=== PATIENT | female | born 1995 | race Caucasian/White ===

== ENCOUNTER → 2020-05-14 | Outpatient (CLI) | payer MEDICAID | LOC: CARD 14:00 | PROVIDERS: ATTEND Internal Medicine Cardiovascular Disease | DX: I50.9 Heart failure, unspecified (principal) | CPT/HCPCS: 93306 ==

== ENCOUNTER 2020-05-22 15:50 | Outpatient (CLI) | payer MEDICAID ==
[~2020-05-22] VITALS: Ht 160 cm; Wt 102.0 kg
--- NOTE | 2020-05-22 15:55 | NUR ---
JAMIR MENDOZA presented to unit via from ED, accompanied by s/o, with c/o POSS LOST MUCUS PLUG/CONTRACTIONS. JAMIR MENDOZA weighed, gowned, voided, and to bed. EFHM and TOCO applied, VS taken. JAMIR MENDOZA oriented to bed controls, call light, TV, heat, and A/C controls.
[2020-05-22 16:00] VITALS: BP 113/73
--- NOTE | 2020-05-22 16:20 | NUR ---
sve by this RN. see flowsheet intervention. resting in bed. reported nausea with lying on back for SVE. repositioned to right side semifowler. fan on emesis bag given. no emesis noted. reports nausea resolving. readjusting FHR monitor r/t poor tracing with active Fetus /FM. patient reports FM. hick ups noted. no contractions palpated by this RN while performing head to toe assessment.
--- NOTE | 2020-05-22 16:55 | NUR ---
no contractions noted on monitor tracing. reactive tracing obtained. fhr baseline 145. occasional variable noted. moderate variability. occasional uterine irritability noted on tracing lasting 20-30secs.
--- NOTE | 2020-05-22 16:57 | NUR ---
EFM removed. d/c orders received to send home. acitve labor ruled out. labor precautions reviewed .
--- NOTE | 2020-05-22 17:17 | NUR ---
out of WS with d/c instructions in hand, to private vehicle to home self care.
--- NOTE | 2020-05-24 08:09 | Physician Query-Final Dx ---
Clinic Account Progress/Dx Physician Query: Please give diagnosis Please include # weeks gestation Date of Service May 22, 2020 at 15:50 VALENTINE JEAN May 24, 2020 08:09
[2020-05-24] MEDS ORDERED: IBUP-844 PO (12:42)
[2020-05-24] MEDS ORDERED: AMOX1TAB12 PO (12:42)
[2020-05-24] MEDS ORDERED: DCS100C PO (12:42)
[2020-05-24] MEDS ORDERED: ENOX40DI8 SQ (12:42)
[2020-05-24] MEDS ORDERED: BENZ78AE5 TP (12:42)
== END 2020-05-22 17:17 | disposition home or self-care (01) ==
LOC: LDRP 15:50 → WSo 15:50
PROVIDERS: ATTEND Obstetrics & Gynecology
DX: O62.9 Abnormality of forces of labor, unspecified (principal); Z3A.00 Weeks of gestation of pregnancy not specified

== ENCOUNTER 2020-05-24 06:50 | Inpatient (IN) | payer MEDICAID ==
[~2020-05-24] VITALS: Ht 160 cm; Wt 104.0 kg
[2020-05-24] VITALS (34 sets, daily range): BP systolic 85–160; BP diastolic 51–83
--- NOTE | 2020-05-24 07:00 | NUR ---
JAMIR MENDOZA presented to unit via ambulation from ED, accompanied by s/o, for scheduled IOL. Pt. weighed, gowned, voided, and to bed. EFHM and TOCO applied, VS taken. Pt. oriented to bed controls, call light, TV, heat, and A/C controls.
[2020-05-24] MEDS ORDERED: OXYTOCIN PRE-MIX DRIP 500 ML IV SCH ×2 (07:30→12:45)
[2020-05-24] MEDS ORDERED: D5 LR IV SOLUTION 1,000 ML IV SCH (07:30)
--- NOTE | 2020-05-24 07:39 | History & Physical-OB ---
OB - Chief Complaint & HPI Date/Time Date of Admission: Date of Admission: May 24, 2020 at 06:50 Date seen by a Provider: May 24, 2020 Time Seen by a Provider: 08:15 Chief Complaint/History OB-Reason for Admission/Chief: Induction of Labor Hx : 6 Hx Para: 4 Expected Date of Delivery: May 31, 2020 Gestational Age in Weeks: 39 Gestational Age in Days: 0 Indication for induction: medical complication Admission Nurse Assessment Rev: Yes History of Labs GBS neg Allergies and Home Medications Allergies Coded Allergies: No Known Drug Allergies (Unverified , 05/24/20) Home Medications No Active Prescriptions or Reported Meds Patient Home Medication List Home Medication List Reviewed: Yes OB - History Hx of Present Care: Yes Ultrasounds: Normal mid trimester US Obstetrical Complications: Gestational Diabetes (diet controlled) Medical Complications: Other (History of peripartum cardiomyopathy, seen by Cardiology this , EF WNL. Also history of PE on anticoagulation) Patient Past Medical History Hx of PE Hx of peripartum cardiomyopathy Social History/Family History 2nd Hand Smoke Exposure: Yes Immunizations Date of Influenza Vaccine: Mar 30, 2020 OB - Admission Exam Physical Exam HEENT: NCAT Heart: Rhythm Normal Lungs: Clear Abdomen: Gravid Extremities: Normal Reflexes: Normal Cervical Dilatation: 3cm Effacement: 75% Station: -1 Membranes: Intact Heart Rate: 130's Accelerations: Accelerations Present Decelerations: No Decelerations Short Term Variability: Present Correction Variability: Average (6-25) Contractions on Admission: 6-10 Minutes Apart Intensity: Mild Bhakta Scoring Tool (Modified) Dilation (cm): 3-4cm (2) Effacement (%): 51-79% (2) Descent/Station: -1,0 (2) Cervix Consistency: Soft (2) Cervix Position: Anterior (2) Add 1 point for: Each previous vaginal delivery (1) Bhakta Score: 13 Labs Laboratory Tests Test 05/24/20 07:00 Range/Units OB - Assessment/Plan/Diagnosis Assessment Assessment: section Admission Dx 25 yo @ 39 Elective 39 week induction with medical co-morbidities Hx of PE Hx of Peripartum cardiomyopathy GBS neg Admission Status: Inpatient Order (span 2 midnights) Reason for Inpatient Admission: Induction of labor at term Plan Plan: Induction Induction Method: per Pitocin Protocol VALDEMAR BARTON DO May 24, 2020 07:39
[2020-05-24 07:47] LABS: AMPHETAMINE SCREEN, URINE NEGATIVE (NEGATIVE); BARBITURATE SCREEN URINE NEGATIVE (NEGATIVE); BENZODIAZEPINES SCREEN URINE NEGATIVE (NEGATIVE); CANNABINOID SCREEN, URINE NEGATIVE (NEGATIVE); COCAINE SCREEN URINE NEGATIVE (NEGATIVE); METHADONE STAT NEGATIVE (NEGATIVE); METHAMPHETAMINE SCREEN URINE S NEGATIVE (NEGATIVE); OPIATE SCREEN URINE NEGATIVE (NEGATIVE); OXYCODONE STAT NEGATIVE (NEGATIVE); PROPOXYPHENE STAT NEGATIVE (NEGATIVE); TRICYCLIC ANTIDEPRESSANTS SCRE NEGATIVE (NEGATIVE)
--- NOTE | 2020-05-24 07:53 | NUR ---
#20G IV to Rt.hand x1 attempt per this RN. site patent,secured with opsite. D5LR @ 125cc/hr infusing.
--- NOTE | 2020-05-24 08:02 | NUR ---
lab here to draw admission labs.
[2020-05-24 08:16] LABS: BASOPHILS % (AUTO) 0 % (0-10); EOSINOPHILS # (AUTO) 0.4 10^3/uL (0.0-0.3); EOSINOPHILS % (AUTO) 4 % (0-10); HEMATOCRIT 30 % (35-52); HEMOGLOBIN 9.5 g/dL (11.5-16.0); LYMPHOCYTES # (AUTO) 2.3 10^3/uL (1.0-4.0); LYMPHOCYTES % (AUTO) 24 % (12-44); MEAN CORPUSCULAR HEMOGLOBIN 24 pg (25-34); MEAN CORPUSCULAR HGB CONC 31 g/dL (32-36); MEAN CORPUSCULAR VOLUME 77 fL (80-99); MONOCYTES # (AUTO) 0.6 10^3/uL (0.0-1.0); MONOCYTES % (AUTO) 6 % (0-12); NEUTROPHILS # (AUTO) 6.2 10^3/uL (1.8-7.8); NEUTROPHILS % (AUTO) 65 % (42-75); PLATELET COUNT 285 10^3/uL (130-400); WHITE BLOOD COUNT 9.7 10^3/uL (4.3-11.0)
--- NOTE | 2020-05-24 09:12 | NUR ---
anesthesia notified of pt's request for epidural
[2020-05-24] MEDS ORDERED: fentaNYL 2 mcg/ml BUPIVA 0.125 100 ML ONE (09:16)
[2020-05-24] MEDS ORDERED: BUPIVACAINE 0.25% 30 ML (SENSORCAINE) VIAL ONE (09:17)
[2020-05-24] MEDS ORDERED: fentaNYL INJECTION 100 MCG/2 ML AMP ONE (09:17)
--- NOTE | 2020-05-24 09:23 | NUR ---
DAQUAN Santacruz here for epidural placement. Procedure explained, consent reviewed and signed by anesthesia. Questions answered to patient's satisfaction. Time out taken to verify correct patient/procedure. 0925- Patient up to side of bed, assisted into sitting position. Betadine prep done x3 and sterile drape applied. 0930- Local done, see anesthesia record. 0933- Test dose given, see anesthesia record for drug and dosage. Epidural catheter secured in place. Epidural placement complete. 0938- Assisted back into bed, monitors adjusted. Epidural dosed, see anesthesia record. Epidural of Sufenta/Fentanyl @12cc/hr stated per pump. Patient tolerated procedure well.
[2020-05-24] MEDS ORDERED: EPIDURAL (fentaNYL 2 MCG/ML BUPIVA 0.125%)100 ML BAG EPI PRN (10:15)
[2020-05-24] MEDS ORDERED: METOCLOPRAMIDE INJ 10 MG/2 ML (REGLAN) IV PRN (10:15)
[2020-05-24] MEDS ORDERED: ONDANSETRON 4 MG/2 ML (SDV) Z0FRAN IV PRN (10:15)
[2020-05-24] MEDS ORDERED: LACTATED RINGERS 1,000 ML IV SCH (10:15)
[2020-05-24] MEDS ORDERED: NALOXONE 0.4 MG/ML 1 ML (NARCAN) VIAL IV PRN ×2 (10:15)
[2020-05-24] MEDS ORDERED: diphenhydrAMINE 50 MG/ML INJ (BENADRYL) IV PRN (10:15)
--- NOTE | 2020-05-24 10:16 | NUR ---
COVID specimen obtained, labeled and sent to lab.
--- NOTE | 2020-05-24 12:39 | OB Labor & Delivery Record ---
L&D History Date of Service Date of Service: May 24, 2020 History Expected Date of Delivery: May 31, 2020 Gestational Age in Weeks: 39 Hx : 6 Hx Para: 4 Complications Events: Gestational Diabetes (late transfer) Operative Indications (Cesarea: N/A-Vaginal Delivery Intrapartal Events: None L&D Stage1 Stage One Onset of Labor - Date: May 24, 2020 Monitors and Tracing Monitor Mode: External Heart Rate: 125 Monitor Decelerations: Variable Top Closer Variability: Average (6-10) Short Term Variability: Present Presentation: Vertex Vital Signs VS - Last 72 Hours, by Label 05/24/20 05/24/20 05/24/20 05/24/20 07:15 07:15 08:00 08:05 Temp 37.2 37.2 Pulse 125 125 91 Resp 18 20 18 B/P (MAP) 109/68 (82) 119/83 (95) Pulse Ox 97 97 O2 Delivery Room Air Room Air Room Air Room Air 05/24/20 05/24/20 05/24/20 05/24/20 08:15 08:30 08:45 09:00 Pulse 97 93 Resp 18 18 B/P (MAP) 114/77 (89) 160/69 (99) O2 Delivery Room Air Room Air Room Air Room Air 05/24/20 05/24/20 05/24/20 05/24/20 09:15 09:25 09:30 09:35 Pulse 99 96 99 94 Resp 18 18 18 18 B/P (MAP) 111/73 (86) 114/75 (88) 114/69 (84) 125/79 (94) Pulse Ox 99 99 99 O2 Delivery Room Air Room Air Room Air Room Air 05/24/20 05/24/20 05/24/20 05/24/20 09:40 09:45 09:50 09:55 Pulse 108 108 93 99 Resp 18 18 18 18 B/P (MAP) 100/55 (70) 93/51 (65) 93/58 (70) 117/59 (78) Pulse Ox 98 99 99 99 O2 Delivery Room Air Room Air Room Air Room Air 05/24/20 05/24/20 05/24/20 05/24/20 10:00 10:15 10:30 10:45 Pulse 101 102 96 86 Resp 18 18 18 18 B/P (MAP) 101/58 (72) 91/53 (66) 99/61 (74) 99/61 (74) Pulse Ox 97 100 99 98 O2 Delivery Room Air Room Air Room Air Room Air 05/24/20 11:00 Temp 35.8 Pulse 84 Resp 18 B/P (MAP) 101/62 (75) Pulse Ox 97 O2 Delivery Room Air Rupture of Membranes Spontaneous Ruture of Membrane: No Amniotic Membrane Rupture Time: 0845 Amniotic Membrane Fluid Desc.: Clear Vaginal Bleeding Description: Normal Show Induction/Anesthesia Epidural Cath Placement - Time: 932 Progress/Notes Patient admitted for IOL. AROM and Pitocin augmentation used 4 mu dosing of placenta reached. She progressed with an epidural to complete and +1 station and began to feel pressure to push. L&D Stage2 Stage Two Stage II Date: May 24, 2020 Monitors and Tracing Monitor Mode: External Heart Rate: 125 Monitor Accelerations: Uniform Monitor Decelerations: Variable Short Term Variability: Present Position: Right Occiput Anterior Presentation: Vertex Cord Descript/Complications Cord Vessel Description: 3 Vessels Complications nuchal x 1 reduced Delivery Type Delivery Method: Spontaneous Vaginal Anterior Shoulder: Left Episiotomy/Perineal Laceration Laceraction(s)/Extensions: No Condition of Delivery 1 minute Comment: 4 5 minute Comment: 7 Notes Live male infant weight 9lbs 7 oz Condition of Infant Condition of : Living Resuscitation Resuscitation: Oxygen Blowby L&D Stage3 Stage Three Stage III Date: May 24, 2020 Pictocin Pitocin Administration mu/min: 4 Pitocin ml/hr: 4 Pitocin Administration Comment: pitocin increased wide open after delivery of placenta Placenta Delivery Placenta Delivery: Spontaneous Delivery Summary Summary Estimated blood loss (mL): 300 Attending at delivery: Valdemar Barton DO Condition of Delivery Examined: Cervix Examined, Uterus Explored Post Hemorrhage: No Condition of Mother stable Condition of Infant (s) stable VALDEMAR BARTON DO May 24, 2020 12:39
--- NOTE | 2020-05-24 12:40 | Discharge Inst-Women's Service ---
Discharge Inst-Women's Serv Depart Medication/Instructions New, Converted or Re-Newed RX: RX on Chart Final Diagnosis PPD 1 NVD Problems Reviewed?: Yes Consults/Follow Up Additional Follow Up: Yes Orders/Referrals Dr. Barton in 6 weeks Activity Activity: Activity as Tolerated Driving Instructions: No Driving for 1 Week NO SMOKING: NO SMOKING Nothing Inside Vagina: No Douching, No [place], No Tampons Diet Discharge Diet: No Restrictions Symptoms to Report to : Bleeding Excessive, Pain Increased, Fever Over 101 Degrees F, Vaginal Bleeding Increase, Questions/Concerns For Any Problems or Questions: Contact Your Physician VALDEMAR BARTON DO May 24, 2020 12:40
[2020-05-24] MEDS ORDERED: IBUP-844 PO (12:42)
[2020-05-24] MEDS ORDERED: ENOX40DI8 SQ (12:42)
[2020-05-24] MEDS ORDERED: DCS100C PO (12:42)
[2020-05-24] MEDS ORDERED: BENZ78AE5 TP (12:42)
[2020-05-24] MEDS ORDERED: AMOX1TAB12 PO (12:42)
[2020-05-24] MEDS ORDERED: MEASLES,MUMPS,RUBELLA 1 EA INJ SQ ONE (12:45)
[2020-05-24] MEDS ORDERED: BENZOCAINE/MENTHOL (DERMOPLAST) 60 ML CAN TP PRN (12:45)
[2020-05-24] MEDS ORDERED: WITCH HAZEL(TUCKS) 40 EA JAR TOP PRN (12:45)
[2020-05-24] MEDS ORDERED: TETANUS,DIPTH,PERTUSS P/F (BOOSTRIX) 0.5 ML VIAL IM ONE (12:45)
[2020-05-24] MEDS: IBUPROFEN 600 MG (MOTRIN) TAB PO SCH ×2 (12:54→19:15)
--- NOTE | 2020-05-24 13:28 | NUR ---
pitocin infusion complete. IV converted to HL.
[2020-05-24] MEDS ORDERED: CATHETER FLUSH 10 ML SYR IV SCH ×2 (14:00)
--- NOTE | 2020-05-24 15:33 | NUR ---
FFu/o. pt cont sleeping with unlabored respirations.
--- NOTE | 2020-05-24 16:50 | NUR ---
pt transferred to room 311 via w/c with this RN and s/o @ side. familiarized with room surroundings. pt up to void. requesting to shower. IV covered.
[2020-05-24] MEDS ORDERED: ACETAMINOPHEN 500 MG TAB (TYLENOL) ONE (17:28)
[2020-05-24] MEDS: ACETAMINOPHEN 500 MG TAB (TYLENOL) PO PRN (17:36)
[2020-05-24] MEDS: DOCUSATE SODIUM 100 MG (COLACE) CAP PO SCH (19:55)
--- NOTE | 2020-05-24 19:55 | NUR ---
VSS, sched Colace given, will start sched Augmentin. Pt. crying, c/o cramping, h/a & states her hips ache. States she took a nap & woke up & felt sick, stating she hopes she is not getting sick w/something. Reassurance given, cool rag offered & to head, K-Pad offered & will get. Pt. appreciative, will cont. to monitor.
[2020-05-24] MEDS: AUGMENTIN 875 MG TAB (AMOXICILLIN/CLAVULANATE) PO SCH (20:05)
--- NOTE | 2020-05-24 20:20 | NUR ---
Called Dr. Freire, update given on pt's pain, & verified Lovenox schedule, no new orders rc'd.
[2020-05-25 00:30] VITALS: BP 137/72
[2020-05-25 00:47] VITALS: BP 91/51
[2020-05-25] MEDS: IBUPROFEN 600 MG (MOTRIN) TAB PO SCH ×3 (00:47→12:08)
[2020-05-25] MEDS: ACETAMINOPHEN 500 MG TAB (TYLENOL) PO PRN ×2 (00:47→08:53)
[2020-05-25 03:45] VITALS: BP 92/50
[2020-05-25 05:12] LABS: BASOPHILS % (AUTO) 0 % (0-10); EOSINOPHILS # (AUTO) 0.3 10^3/uL (0.0-0.3); EOSINOPHILS % (AUTO) 3 % (0-10); HEMATOCRIT 29 % (35-52); HEMOGLOBIN 9.2 g/dL (11.5-16.0); LYMPHOCYTES # (AUTO) 2.2 10^3/uL (1.0-4.0); LYMPHOCYTES % (AUTO) 22 % (12-44); MEAN CORPUSCULAR HEMOGLOBIN 24 pg (25-34); MEAN CORPUSCULAR HGB CONC 31 g/dL (32-36); MEAN CORPUSCULAR VOLUME 77 fL (80-99); MEAN PLATELET VOLUME 10.8 fL (9.0-12.2); MONOCYTES # (AUTO) 0.8 10^3/uL (0.0-1.0); MONOCYTES % (AUTO) 8 % (0-12); NEUTROPHILS # (AUTO) 6.7 10^3/uL (1.8-7.8); NEUTROPHILS % (AUTO) 66 % (42-75); PLATELET COUNT 199 10^3/uL (130-400)
[2020-05-25] MEDS ORDERED: PRENATAL VITAMIN 1 EA TAB PO SCH (07:00)
[2020-05-25] MEDS ORDERED: ENOXAPARIN 40 MG/0.4 ML (LOVENOX) SYR SQ SCH (07:00)
[2020-05-25] MEDS ORDERED: FERROUS SULF 325 MG (IRON) TAB PO SCH (08:00)
--- NOTE | 2020-05-25 08:25 | Postpartum Progress Note ---
Note Note Day # 1 Subjective: Patient is without complaints. Ambulating, voiding. Tolerating a regular diet without nausea or vomiting. Normal lochia. Pain is well controlled with oral pain medications. Objective: Physical Exam: General - Alert and oriented, no apparent distress Abdomen - Soft, appropriately tender to palpation, non-distended, fundus firm at umbilicus Extremities - no edema, negative Mackenzie's bilaterally Assessment: PPD 1 NVD Acute blood loss anemia Plan: Routine care. Encourage breast feeding. Encourage ambulation. Ferrous sulfate supplementation. Plan for discharge today Vitals - Labs Vital Signs - I&O Vital Signs Date Time Temp Pulse Resp B/P (MAP) Pulse Ox O2 Delivery O2 Flow Rate FiO2 05/25/20 03:45 36.9 79 18 92/50 (64) 97 Room Air 05/25/20 00:47 36.5 84 18 91/51 (64) 98 Room Air 05/24/20 19:55 36.4 84 18 120/59 (79) 99 Room Air 05/24/20 15:30 86 18 86/51 (63) Room Air 05/24/20 15:15 85 18 86/52 (63) Room Air 05/24/20 15:00 88 18 85/51 (62) Room Air 05/24/20 14:45 111 18 97/53 (68) Room Air 05/24/20 14:30 105 18 96/51 (66) Room Air 05/24/20 14:15 108 18 99/53 (68) Room Air 05/24/20 14:00 113 18 117/59 (78) Room Air 05/24/20 13:45 92 18 118/62 (80) Room Air 05/24/20 13:15 85 18 104/53 (70) Room Air 05/24/20 13:00 100 18 114/69 (84) Room Air 05/24/20 12:48 95 18 112/60 (77) Room Air 05/24/20 12:34 36.3 88 18 107/61 (76) Room Air 05/24/20 12:15 36.9 Room Air 05/24/20 12:00 91 18 128/77 (94) 99 Room Air 05/24/20 11:45 86 18 107/65 (79) 100 Room Air 05/24/20 11:30 103 18 106/65 (79) 93 Room Air 05/24/20 11:15 91 18 105/64 (78) 99 Room Air 05/24/20 11:00 35.8 84 18 101/62 (75) 97 Room Air 05/24/20 10:45 86 18 99/61 (74) 98 Room Air 05/24/20 10:30 96 18 99/61 (74) 99 Room Air 05/24/20 10:15 102 18 91/53 (66) 100 Room Air 05/24/20 10:00 101 18 101/58 (72) 97 Room Air 05/24/20 09:55 99 18 117/59 (78) 99 Room Air 05/24/20 09:50 93 18 93/58 (70) 99 Room Air 05/24/20 09:45 108 18 93/51 (65) 99 Room Air 05/24/20 09:40 108 18 100/55 (70) 98 Room Air 05/24/20 09:35 94 18 125/79 (94) 99 Room Air 05/24/20 09:30 99 18 114/69 (84) 99 Room Air 05/24/20 09:25 96 18 114/75 (88) 99 Room Air 05/24/20 09:15 99 18 111/73 (86) Room Air 05/24/20 09:00 93 18 160/69 (99) Room Air 05/24/20 08:45 Room Air 05/24/20 08:30 Room Air I & O 05/25/20 07:00 Intake Total 2000 ml Balance 2000 ml Labs Laboratory Tests 05/24/20 10:16: Coronavirus (COVID-19)(PCR) Negative 05/25/20 05:05: White Blood Count 10.0, Red Blood Count 3.83, Hemoglobin 9.2L, Hematocrit 29L, Mean Corpuscular Volume 77L, Mean Corpuscular Hemoglobin 24L, Mean Corpuscular Hemoglobin Concent 31L, Red Cell Distribution Width 16.1H, Platelet Count 199, Mean Platelet Volume 10.8, Immature Granulocyte % (Auto) 1, Neutrophils (%) (Auto) 66, Lymphocytes (%) (Auto) 22, Monocytes (%) (Auto) 8, Eosinophils (%) (Auto) 3, Basophils (%) (Auto) 0, Neutrophils # (Auto) 6.7, Lymphocytes # (Auto) 2.2, Monocytes # (Auto) 0.8, Eosinophils # (Auto) 0.3, Basophils # (Auto) 0.0, Immature Granulocyte # (Auto) 0.1 VALDEMAR BARTON DO May 25, 2020 08:25
[2020-05-25] MEDS: DOCUSATE SODIUM 100 MG (COLACE) CAP PO SCH (08:52)
[2020-05-25] MEDS: AUGMENTIN 875 MG TAB (AMOXICILLIN/CLAVULANATE) PO SCH (08:52)
[2020-05-25 08:55] VITALS: BP 105/59
--- NOTE | 2020-05-25 10:38 | Anesthesia-Regional Post-Op ---
Regional Patient Condition Mental Status: Alert, Oriented x3 Circulation: Same as Pre-Op Headache: Absent Sensation: Full Recovery Motor Block: Absent Post Op Complications Complications None Follow Up Care/Instructions Patient Instructions None needed. Anesthesia/Patient Condition Patient is doing well, no complaints, stable vital signs, no apparent adverse anesthesia problems. CANDY BOBBY DO May 25, 2020 10:38
--- NOTE | 2020-05-25 11:18 | NUR ---
CM/SS: Visited with pt as per Social Service Consult related to maternal drug use. Plan: Baby to live with his biological father at time of discharge - as pt is working to establish housing and in the process of getting her other children back from the [facility]. Summary: Pt is open to share information related to her past issues related to her children and not having custody of them and her transition to getting some housing and in the process of getting children back from the state of [place]. Pt is aware that this worker will make a DCF report - she explains that she had an affair and got and the biological father of the pt wants to raise the child based on her not having custody of her other children and the current open case in the state of [place]. Pt wants what is best for the baby. She does indicate she has a new boyfriend and they are trying to get a house and get established here in [place]. She needs to check on WIC and other services for the baby. She is given information on services for pt, WIC, [facility] - parenting classes (she reports involvement with them currently taking classes) and is encouraged to pass along the information to biological father. Pt verbalizes understanding. Pt reports that dad has items and bed for baby. She is encouraged to let him know as well that DCF will be notified as to the case in [place] and may be contacted and is encouraged to given them what ever information they are needing. He is currently an licensed journeyman electrician at this time. Pt reports that he can care for the pt. Pt is thanked for all of the information, and is wished well.
--- NOTE | 2020-05-25 11:23 | NUR ---
CM/SS: [place] PROTECTION REPORT COMPLETED # [id number] - SUBMITTED 05/25/20 10:51AM. BASED ON PT HAVING OPEN DCF CASE IN THE STATE OF [place] , PAST DRUG ISSUES, INADEQUATE HOUSING AND PLANNING TO ALLOW THE BIOLOGICAL FATHER TO HAVE AND CARE FOR CHILD.
[2020-05-25 12:10] VITALS: BP 127/61
--- NOTE | 2020-05-25 13:50 | NUR ---
Discharge instructions explained to pt with copy provided to pt along with prescriptions. Pt notified of follow up appointment. Pt verbalizes understanding of instructions and signs to verify. Pt denies questions or concerns at this time.
--- NOTE | 2020-05-25 14:10 | NUR ---
Pt ambulates off unit to private vehicle accompanied by S.O., , and OB staff with all personal belongings. No s/s of distress noted.
== END 2020-05-25 14:10 | disposition home or self-care (01) | DRG 806 ==
LOC: LDRP 06:50 → WS 09:32 → LDRP 09:32
PROVIDERS: ADMIT Obstetrics & Gynecology; ATTEND Obstetrics & Gynecology
PROC: 10E0XZZ Delivery of Products of Conception, External Approach (ICD-10-PCS; principal; 2020-05-24)
PROC: 10907ZC Drainage of Amniotic Fluid, Therapeutic from Products of Conception, Via Natural or Artificial Opening (ICD-10-PCS; 2020-05-24)
DX: O24.429 Gestational diabetes mellitus in childbirth, unspecified control (principal); O99.43 Diseases of the circulatory system complicating the puerperium; Z37.0 Single live birth; I42.9 Cardiomyopathy, unspecified; D62 Acute posthemorrhagic anemia; Z3A.39 39 weeks gestation of pregnancy; O90.81 Anemia of the puerperium; Z20.822 Contact with and (suspected) exposure to COVID-19
CPT/HCPCS: 36415; 80306; 85025; 86850; 86900; 86901; 87635

== ENCOUNTER 2020-06-09 21:44 | Emergency (ER) | payer MEDICAID ==
[~2020-06-09] VITALS: Ht 165 cm; Wt 98.0 kg
[~2020-06-09 21:44] MED LIST: AMOX1TAB12 PO; BENZ78AE5 TP; DCS100C PO; ENOX40DI8 SQ; IBUP-844 PO
--- NOTE | 2020-06-09 22:41 | ED GI ---
General Chief Complaint: Rect Problems Stated Complaint: HISTORY/POSS HEMORRHOID Source of Information: Patient Exam Limitations: No Limitations (ALCIDES RADFORD MD) Source of Information: Patient Exam Limitations: No Limitations (YAJAIRA SHEIKH) History of Present Illness Date Seen by Provider: Jun 09, 2020 Time Seen by Provider: 22:00 Initial Comments Carlos is a 25 y/o female that presents to the ER with anal pain that has been ongoing for a month and a half. She describes the pain as 8/10, pain increases with bowel movements, passing gas and sitting. She describe the pain as sharp and painful when she is having a BM and the pain is persistent up to an hour after. She has tried OTC hemorrhoid creme, Tylenol and Ibuprofen, which have helped minimally. She denies associated blood in stool or abdominal pain. She is not using any fiber supplements, topical analgesics or sitz to help with pain. She has Pertinent PMH of hemorrhoid removal back in [id number] in [place], [place], Pulmonary Embolism and recent induction for delivery on May 24. She recently moved to the area and has no PCP at this time. Denies the following: F/C, vomiting, Chest pain, SOB, Abdominal pain, and symptoms. She has had ongoing nausea since giving and is currently receiving Zofran. Timing/Duration: 1/2 Hour Severity/Quality: Mild Location: Other (rectal) Radiation: No Radiation Activities at Onset: Other (passing gas, bowel movements, sitting) Associated Symptoms: Denies Symptoms (YAJAIRA SHEIKH) Allergies and Home Medications Allergies Coded Allergies: No Known Drug Allergies (Unverified , 05/24/20) Home Medications Amoxicillin/Potassium Clav 1 Each Tablet, 875 MG PO BID WITH MEALS Prescribed by: VALDEMAR BARTON on 05/24/20 1242 Benzocaine/Menthol 78 Gm Aerosol, 56 ML TP UD PRN for PAIN- SEE INSTRUCTIONS Prescribed by: VALDEMAR BARTON on 05/24/20 1242 Docusate Sodium 100 Mg Capsule, 100 MG PO BID PRN for CONSTIPATION-1ST LINE Prescribed by: VALDEMAR BARTON on 05/24/20 1242 Enoxaparin Sodium 40 Mg/0.4 Ml Syringe, 0 MG SQ Q24H Prescribed by: VALDEMAR BARTON on 05/24/20 1242 Ibuprofen 600 Mg Tablet, 600 MG PO Q6HR Prescribed by: VALDEMAR BARTON on 05/24/20 1242 Patient Home Medication List Home Medication List Reviewed: Yes (ALCIDES RADFORD MD) Review of Systems Review of Systems Constitutional: no symptoms reported EENTM: No Symptoms Reported Cardiovascular: No Symptoms Reported, Chest Pain Gastrointestinal: Denies Blood Streaked Stools; Nausea; Denies Rectal Bleeding; Other (rectal pain) Genitourinary: No Symptoms Reported Musculoskeletal: no symptoms reported Skin: no symptoms reported Psychiatric/Neurological: No Symptoms Reported Hematologic/Lymphatic: No Symptoms Reported (KORIYAJAIRA [employer] Company[employer]) Past Eljtilr-Bcrhmu-Spxsog Hx Patient Social History Drug of Choice: methephatamines 2nd Hand Smoke Exposure: Yes (ALCIDES RADFORD MD) Alcohol Use: Occasionally Uses Smoking Status: Never a Smoker (KORIYAJAIRA Mfuse ABHISHEK) Immunizations Up To Date Date of Influenza Vaccine: Jan 29, 2020 (ALCIDES RAFDORD MD) Past Medical History Respiratory: No Currently Using CPAP: No Currently Using BIPAP: No Cardiac: No Neurological: No : No Reproductive Disorders: No Sexually Transmitted Disease: No HIV/AIDS: No Genitourinary: No Gastrointestinal: Yes Hemorrhoids Musculoskeletal: No Endocrine: No Are Your Blood Sugars Over 250: No HEENT: No Loss of Vision: Denies Hearing Impairment: Denies Cancer: No hx PE Psychosocial: No Integumentary: No Blood Disorders: No Adverse Reaction/Blood Tranf: No (YAJAIRA SHEIKH Mfuse ABHISHEK) Family Medical History denies FH of colon cancer (KORI,YAJAIRA [employer]) Physical Exam Vital Signs Capillary Refill : (ALCIDES RADFORD MD) Height/Weight/BMI Height: '" Weight: lbs. oz. kg; 40.62 BMI Method: (ALCIDES RADFORD MD) General Appearance: no apparent distress HEENT: PERRL/EOMI Neck: non-tender, full range of motion Respiratory: chest non-tender, lungs clear, no respiratory distress, no accessory muscle use Cardiovascular: regular rate, rhythm, no edema Peripheral Pulses: 2+ Dorsalis Pedis (R), 2+ Left Dors-Pedis (L), 2+ Radial Pulses (R), 2+ Radial Pulses (L) Gastrointestinal: normal bowel sounds, non tender, soft Rectal: hemorrhoids (potential internal hemorrhoids ), tenderness (Left internal side wall ) Extremities: no pedal edema, no calf tenderness Neurologic/Psychiatric: alert, normal mood/affect, oriented x 3 Skin: normal color, warm/dry Lymphatic: no adenopathy Exam Comments During Rectal Exam Tech Karina was present. (YAJAIRA SHIEKH) Progress/Results/Core Measures Progress Progress Note : Progress Note Patient has not had any rectal bleeding despite taking Lovenox. On rectal exam there was some bumpy texture to the internal mucosa which may represent internal hemorrhoids. No significant masses. Anal exam revealed no notable external hemorrhoids or fissures. There was no bleeding noted. She had minimal tendern ess on exam. Patient may have intermittent anal fissure or some small internal hemorrhoids that are causing her pain. See discharge instructions for discussion. (ALCIDES RADFORD MD) Departure Impression Primary Impression: Rectal pain Disposition: 01 HOME, SELF-CARE Condition: Stable Departure-Patient Inst. Decision time for Depature: 22:38 (ALCIDES RADFORD MD) Referrals: VALDEMAR BARTON DO (PCP/Family) Primary Care Physician Patient Instructions: Anal Fissure, Hemorrhoids Add. Discharge Instructions: The cause of your pain is uncertain but could be related to internal hemorrhoids or an anal fissure (crack in the anal skin). One of the primary treatments is keeping your stools very soft while the rectum and anus heals. You may use Colace stool softener twice daily to accomplish stool softening. If you need more aggressive stool softening you may use MiraLAX (polyethylene glycol) a few times a day. Follow package instructions. You may continue using Tylenol and/or ibuprofen for pain. Eat a diet high in fiber with plenty of fruits, vegetables, and whole grains. Avoid excessive foods that may cause constipation such as meats, cheeses, fast foods, processed foods, etc. You may continue using [id number] hemorrhoid treatments. It may also be beneficial to lubricate the anal tissue with Vaseline or petroleum jelly prior to bowel movements. You may wash the anal area with a squirt bottle or shower and blot dry rather than wiping. Call with questions or concerns. Follow-up with your primary care provider or surgeon if not resolved in 1 to 2 weeks. Return to the ER if worsening symptoms. All discharge instructions reviewed with patient and/or family. Voiced understanding. Medical Student Attestation and Attending Note: I have personally interviewed and examined this patient along with Yajaira Polanco, MS 4. I have reviewed student documentation including history, physical, and assessments. I agree with the documentation except where otherwise noted. Exam: General: Alert, oriented, no acute distress, well developed HEENT: Normocephalic and atraumatic Heart: Regular rate and rhythm without murmur Lungs: Clear to auscultation bilaterally with normal effort Abdomen: Soft, nontender, nondistended, normal bowel sounds Rectal: Subtle lumpy texture to the rectal vault which may represent small internal hemorrhoids. No significant external hemorrhoids noted. No anal fissures. No bleeding. Normal rectal tone. Mild pain with exam. Neuropsych: Alert, oriented, no focal deficits Skin: Warm and dry without rashes (ALCIDES RADFORD MD) Copy Copies To 1: VALDEMAR BARTON JOSHUA T MD Jun 09, 2020 22:41 YAJAIRA SHEIKH [facility] Jun 09, 2020 22:52
[2020-06-09 22:48] VITALS: BP 110/44
== END 2020-06-09 22:48 | disposition home or self-care (01) ==
LOC: EDUNIT# 21:44 → ER 21:46
DX: K62.89 Other specified diseases of anus and rectum (principal); Z77.22 Contact with and (suspected) exposure to environmental tobacco smoke (acute) (chronic); Z79.01 Long term (current) use of anticoagulants
CPT/HCPCS: 99282

== ENCOUNTER 2020-07-06 00:30 | Emergency (ER) | payer MEDICAID ==
[~2020-07-06] VITALS: Ht 160 cm; Wt 98.0 kg
[2020-07-06 01:43] LABS: BASOPHILS # (AUTO) 0.1 10^3/uL (0.0-0.1); BASOPHILS % (AUTO) 1 % (0-10); EOSINOPHILS # (AUTO) 1.6 10^3/uL (0.0-0.3); EOSINOPHILS % (AUTO) 18 % (0-10); HEMATOCRIT 37 % (35-52); HEMOGLOBIN 11.5 g/dL (11.5-16.0); LYMPHOCYTES # (AUTO) 3.7 10^3/uL (1.0-4.0); LYMPHOCYTES % (AUTO) 41 % (12-44); MEAN CORPUSCULAR HEMOGLOBIN 25 pg (25-34); MEAN CORPUSCULAR HGB CONC 31 g/dL (32-36); MEAN CORPUSCULAR VOLUME 79 fL (80-99); MEAN PLATELET VOLUME 9.9 fL (9.0-12.2); MONOCYTES # (AUTO) 0.5 10^3/uL (0.0-1.0); MONOCYTES % (AUTO) 6 % (0-12); NEUTROPHILS # (AUTO) 3.1 10^3/uL (1.8-7.8); NEUTROPHILS % (AUTO) 35 % (42-75); PLATELET COUNT 319 10^3/uL (130-400)
[2020-07-06 01:57] LABS: ALBUMIN 4.2 GM/DL (3.2-4.5); CHLORIDE 104 MMOL/L (98-107); POTASSIUM 4.8 MMOL/L (3.6-5.0); SODIUM 136 MMOL/L (135-145)
[2020-07-06 01:58] LABS: CALCIUM 9.7 MG/DL (8.5-10.1)
[2020-07-06 01:59] LABS: GLUCOSE 94 MG/DL (70-105); TOTAL PROTEIN 8.1 GM/DL (6.4-8.2)
[2020-07-06 02:01] LABS: BILIRUBIN,TOTAL 0.3 MG/DL (0.1-1.0); CARBON DIOXIDE 19 MMOL/L (21-32)
[2020-07-06 02:03] LABS: ALKALINE PHOSPHATASE 69 U/L (40-136); CREATININE SERUM 0.77 MG/DL (0.60-1.30); GFR ESTIMATED > 60
[2020-07-06 02:04] LABS: BUN/CREATININE RATIO 30
[2020-07-06 02:06] LABS: ALANINE AMINOTRANSFERASE 46 U/L (0-55)
--- NOTE | 2020-07-06 02:57 | ED Chest Pain ---
General Chief Complaint: General Problems/Pain Stated Complaint: POSS BLOOD CLOTT, PINCHING ON RT SIDE Nursing Triage Note: PATIENT DESCRIBES "PINCHING" SENSATION IN RIGHT "LUNG" AREA. "I THINK ITS A BLOOD CLOT, LIDYA HAD THEM IN THE PAST AND THIS IS WHAT IT FELT LIKE." Nursing Sepsis Screen: No Definite Risk Source: patient Exam Limitations: no limitations History of Present Illness Date Seen by Provider: Jul 06, 2020 Time Seen by Provider: 01:30 Initial Comments Patient presents ER by private conveyance with chief complaint she is having so me pinching-like pain in her right chest and in her right mid axillary line. She says she had pain similar to this when she had a pulmonary embolism in the past. She is not having any shortness of breath hemoptysis fever cough. She is not a smoker nor does she have asthma or COPD. No history of heart disease. No trauma. Allergies and Home Medications Allergies Coded Allergies: No Known Drug Allergies (Unverified , 05/24/20) Home Medications Amoxicillin/Potassium Clav 1 Each Tablet, 875 MG PO BID WITH MEALS Prescribed by: VALDEMAR BARTON on 05/24/20 1242 Benzocaine/Menthol 78 Gm Aerosol, 56 ML TP UD PRN for PAIN- SEE INSTRUCTIONS Prescribed by: VALDEMAR BARTON on 05/24/20 1242 Docusate Sodium 100 Mg Capsule, 100 MG PO BID PRN for CONSTIPATION-1ST LINE Prescribed by: VALDEMAR BARTON on 05/24/20 1242 Enoxaparin Sodium 40 Mg/0.4 Ml Syringe, 0 MG SQ Q24H Prescribed by: VALDEMAR BARTON on 05/24/20 1242 Ibuprofen 600 Mg Tablet, 600 MG PO Q6HR Prescribed by: VALDEMAR BARTON on 05/24/20 1242 Patient Home Medication List Home Medication List Reviewed: Yes Review of Systems Review of Systems Constitutional: No chills, No diaphoresis EENTM: No Blurred Vision, No Double Vision Respiratory: Denies Cough, Denies Shortness of Air Cardiovascular: See HPI, Chest Pain; Denies Edema Gastrointestinal: Denies Abdomen Distended, Denies Abdominal Pain Genitourinary: Denies Burning, Denies Discharge Musculoskeletal: No back pain, No joint pain All Other Systems Reviewed Negative Unless Noted: Yes Past Lfhsxgk-Zjqgrn-Xdszfx Hx Patient Social History Alcohol Use: Occasionally Uses Drug of Choice: MARIJUANA 2nd Hand Smoke Exposure: Yes Recent Infectious Disease Expo: No Recent Hopitalizations: Yes Immunizations Up To Date Date of Influenza Vaccine: Jan 29, 2020 Seasonal Allergies Seasonal Allergies: No Past Medical History Surgeries: No Respiratory: No Pulmonary Embolism Currently Using CPAP: No Currently Using BIPAP: No Cardiac: No Congenital Heart Disease Neurological: No : 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 denies FH of colon cancer Physical Exam Vital Signs Vital Signs - First Documented 07/06/20 01:40 Temp 35.9 Pulse 73 Resp 18 B/P (MAP) 136/84 (101) Pulse Ox 98 O2 Delivery Room Air Capillary Refill : Less Than 3 Seconds Height, Weight, BMI Height: '" Weight: lbs. oz. kg; 38.00 BMI Method: General Appearance: No Apparent Distress, WD/WN HEENT: Pharynx Normal, Moist Mucous Membranes Neck: Normal Inspection, Non Tender Respiratory: No Accessory Muscle Use, No Respiratory Distress Cardiovascular: Regular Rate, Rhythm, No Edema Neurologic/Psychiatric: Alert, Oriented x3 Skin: Normal Color, Warm/Dry Progress/Results/Core Measures Results/Orders Lab Results Laboratory Tests Test 07/06/20 01:32 Range/Units White Blood Count 9.0 4.3-11.0 10^3/uL Red Blood Count 4.66 3.80-5.11 10^6/uL Hemoglobin 11.5 11.5-16.0 g/dL Hematocrit 37 35-52 % Mean Corpuscular Volume 79 L 80-99 fL Mean Corpuscular Hemoglobin 25 25-34 pg Mean Corpuscular Hemoglobin Concent 31 L 32-36 g/dL Red Cell Distribution Width 19.5 H 10.0-14.5 % Platelet Count 319 130-400 10^3/uL Mean Platelet Volume 9.9 9.0-12.2 fL Immature Granulocyte % (Auto) 0 % Neutrophils (%) (Auto) 35 L 42-75 % Lymphocytes (%) (Auto) 41 12-44 % Monocytes (%) (Auto) 6 0-12 % Eosinophils (%) (Auto) 18 H 0-10 % Basophils (%) (Auto) 1 0-10 % Neutrophils # (Auto) 3.1 1.8-7.8 10^3/uL Lymphocytes # (Auto) 3.7 1.0-4.0 10^3/uL Monocytes # (Auto) 0.5 0.0-1.0 10^3/uL Eosinophils # (Auto) 1.6 H 0.0-0.3 10^3/uL Basophils # (Auto) 0.1 0.0-0.1 10^3/uL Immature Granulocyte # (Auto) 0.0 0.0-0.1 10^3/uL D-Dimer < 0.27 0.00-0.49 UG/ML Sodium Level 136 135-145 MMOL/L Potassium Level 4.8 3.6-5.0 MMOL/L Chloride Level 104 98-107 MMOL/L Carbon Dioxide Level 19 L 21-32 MMOL/L Anion Gap 13 5-14 MMOL/L Blood Urea Nitrogen 23 H 7-18 MG/DL Creatinine 0.77 0.60-1.30 MG/DL Estimat Glomerular Filtration Rate > 60 BUN/Creatinine Ratio 30 Glucose Level 94 70-105 MG/DL Calcium Level 9.7 8.5-10.1 MG/DL Corrected Calcium 9.5 8.5-10.1 MG/DL Total Bilirubin 0.3 0.1-1.0 MG/DL Aspartate Amino Transf (AST/SGOT) 44 H 5-34 U/L Alanine Aminotransferase (ALT/SGPT) 46 0-55 U/L Alkaline Phosphatase 69 40-136 U/L Total Protein 8.1 6.4-8.2 GM/DL Albumin 4.2 3.2-4.5 GM/DL Serum Test, Qualitative NEGATIVE NEGATIVE My Orders Orders - ANY BUSH Cbc With Automated Diff (07/06/20 01:15) Comprehensive Metabolic Panel (07/06/20 01:15) Fibrin Degradation Products (07/06/20 01:15) Hcg,Qualitative Serum (07/06/20 01:15) Chest 1 View, Ap/Pa Only (07/06/20 01:15) Continuous Ekg Monitoring (07/06/20 01:15) Ekg Tracing (07/06/20 01:15) Vital Signs/I&O 07/06/20 01:40 Temp 35.9 Pulse 73 Resp 18 B/P (MAP) 136/84 (101) Pulse Ox 98 O2 Delivery Room Air Blood Pressure Mean: 101 Progress Progress Note : Time: 02:55 Progress Note Reproducible soft tissue tenderness without rash to suggest shingles. It is not in a single dermatome anyways. Her D-dimer rules out the likelihood of a pulmonary embolism and she does not have a very high risk factor for this anyways. We have encouraged her to use Tylenol, Motrin, heat, massage and follow-up with primary care provider which she has an appointment for in the next week or 2. Initial ECG Impression Date: Jul 06, 2020 Initial ECG Impression Time: 01:46 Initial ECG Rate: 65 Initial ECG Rhythm: Normal Sinus Initial ECG Intervals: Normal Initial ECG Impression: Normal, Nonspecific Changes Initial ECG Comparisson: No Previous ECG Available Comment Sinus arrhythmia without clinically relevant ST elevation or depression Diagnostic Imaging Diagonstic Imaging: Xray Plain Films/CT/US/NM/MRI: chest Comments No acute cardiopulmonary process on 1 view chest x-ray. Reviewed: Reviewed by Me Departure Impression Primary Impression: Chest wall pain Disposition: 01 HOME, SELF-CARE Condition: Stable Departure-Patient Inst. Decision time for Depature: 02:56 Referrals: [facility] (PCP/Family) Primary Care Physician Patient Instructions: Chest Pain That Is Not Caused by the Heart (DC) Add. Discharge Instructions: We have ruled out a blood clot using a blood test. If your symptoms persist despite Tylenol, Motrin, massage and time then you need to talk to your primary care doctor about other possible explanations. Return to the ER if you are having severe, intractable pain, shortness of air or other worrisome symptoms. All discharge instructions reviewed with patient and/or family. Voiced understanding. ANY BUSH Jul 06, 2020 02:57
[2020-07-06 03:04] VITALS: BP 118/80
--- NOTE | 2020-07-06 06:30 | Diagnostic Imaging Report ---
INDICATION: Chest pain COMPARISON: 05/06/2019 FINDINGS: Single view of the chest demonstrates clear lungs bilaterally. The heart is normal. There is no pneumothorax. The osseous structures are normal. IMPRESSION: Negative chest Dictated by: Dictated on workstation # [id number]
== END 2020-07-06 03:04 | disposition home or self-care (01) ==
LOC: EDUNIT# 00:30 → ER 00:35
DX: R07.89 Other chest pain (principal); I10 Essential (primary) hypertension; Z86.711 Personal history of pulmonary embolism; Z77.22 Contact with and (suspected) exposure to environmental tobacco smoke (acute) (chronic); Z79.01 Long term (current) use of anticoagulants
CPT/HCPCS: 36415; 71045; 80053; 84703; 85025; 85379; 93005

== ENCOUNTER 2020-08-07 22:42 | Emergency (ER) | payer MEDICAID ==
[~2020-08-07] VITALS: Ht 160 cm; Wt 105.2 kg
[2020-08-07] MEDS ORDERED: ASPIRIN 81 MG CHEW (CHILDREN'S ASA) PO ONE (23:15)
[2020-08-07 23:24] LABS: BASOPHILS # (AUTO) 0.1 10^3/uL (0.0-0.1); BASOPHILS % (AUTO) 1 % (0-10); EOSINOPHILS # (AUTO) 0.8 10^3/uL (0.0-0.3); EOSINOPHILS % (AUTO) 8 % (0-10); HEMATOCRIT 41 % (35-52); HEMOGLOBIN 13.1 g/dL (11.5-16.0); LYMPHOCYTES % (AUTO) 29 % (12-44); MEAN CORPUSCULAR HEMOGLOBIN 25 pg (25-34); MEAN CORPUSCULAR HGB CONC 32 g/dL (32-36); MEAN CORPUSCULAR VOLUME 80 fL (80-99); MEAN PLATELET VOLUME 10.2 fL (9.0-12.2); MONOCYTES # (AUTO) 0.5 10^3/uL (0.0-1.0); MONOCYTES % (AUTO) 5 % (0-12); NEUTROPHILS # (AUTO) 5.9 10^3/uL (1.8-7.8); NEUTROPHILS % (AUTO) 58 % (42-75); PLATELET COUNT 400 10^3/uL (130-400); WHITE BLOOD COUNT 10.3 10^3/uL (4.3-11.0)
[2020-08-07 23:36] LABS: PROTHROMBIN TIME PATIENT 13.5 SEC (12.2-14.7)
[2020-08-07 23:45] LABS: ALANINE AMINOTRANSFERASE 40 U/L (0-55); ALBUMIN 4.7 GM/DL (3.2-4.5); ALKALINE PHOSPHATASE 72 U/L (40-136); AMYLASE 52 U/L (25-125); BILIRUBIN,TOTAL 0.3 MG/DL (0.1-1.0); BUN/CREATININE RATIO 21; CALCIUM 10.2 MG/DL (8.5-10.1); CARBON DIOXIDE 27 MMOL/L (21-32); CHLORIDE 103 MMOL/L (98-107); CREATINE KINASE 101 U/L (29-168); CREATININE SERUM 0.84 MG/DL (0.60-1.30); GFR ESTIMATED > 60; GLUCOSE 87 MG/DL (70-105); LIPASE 28 U/L (8-78); MAGNESIUM 1.7 MG/DL (1.6-2.4); POTASSIUM 3.4 MMOL/L (3.6-5.0); SODIUM 142 MMOL/L (135-145); TOTAL PROTEIN 8.4 GM/DL (6.4-8.2)
[2020-08-07] MEDS ORDERED: ACETAMINOPHEN 500 MG TAB (TYLENOL) PO ONE (23:45)
[2020-08-07 23:52] LABS: CREATINE KINASE MB 0.8 NG/ML (<6.6)
[2020-08-08] LABS: AMPHETAMINE SCREEN, URINE NEGATIVE (NEGATIVE); BARBITURATE SCREEN URINE NEGATIVE (NEGATIVE); BENZODIAZEPINES SCREEN URINE NEGATIVE (NEGATIVE); CANNABINOID SCREEN, URINE NEGATIVE (NEGATIVE); COCAINE SCREEN URINE NEGATIVE (NEGATIVE); METHADONE STAT NEGATIVE (NEGATIVE); METHAMPHETAMINE SCREEN URINE S NEGATIVE (NEGATIVE); OPIATE SCREEN URINE NEGATIVE (NEGATIVE); OXYCODONE STAT NEGATIVE (NEGATIVE); PROPOXYPHENE STAT NEGATIVE (NEGATIVE); TRICYCLIC ANTIDEPRESSANTS SCRE NEGATIVE (NEGATIVE)
[2020-08-08] MEDS ORDERED: PANT40TA2 PO (00:28)
[2020-08-08] MEDS ORDERED: METH4TAB PO (00:28)
--- NOTE | 2020-08-08 00:28 | ED Chest Pain ---
General Chief Complaint: Chest Pain Stated Complaint: CHEST PAIN Nursing Triage Note: PRESENTS TO ROOM #6 VIA POV WITH C/O MEDIAL CHEST DISCOMFORT X2WKS. STATES SHE HAS BEEN EXPERIENCING CONSTANT MEDIAL CHEST DISCOMFORT X2WKS WITH INTERMITTENT EPISODES OF PAIN RADIATION TO L CHEST. 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 Nursing Sepsis Screen: No Definite Risk Allergies and Home Medications Allergies Coded Allergies: No Known Drug Allergies (Unverified , 05/24/20) Home Medications Amoxicillin/Potassium Clav 1 Each Tablet, 875 MG PO BID WITH MEALS Prescribed by: VALDEMAR BARTON on 05/24/20 1242 Benzocaine/Menthol 78 Gm Aerosol, 56 ML TP UD PRN for PAIN- SEE INSTRUCTIONS Prescribed by: VALDEMAR BARTON on 05/24/20 1242 Docusate Sodium 100 Mg Capsule, 100 MG PO BID PRN for CONSTIPATION-1ST LINE Prescribed by: VALDEMAR BARTON on 05/24/20 1242 Enoxaparin Sodium 40 Mg/0.4 Ml Syringe, 0 MG SQ Q24H Prescribed by: VALDEMAR BARTON on 05/24/20 1242 Ibuprofen 600 Mg Tablet, 600 MG PO Q6HR Prescribed by: VALDEMAR BARTON on 05/24/20 1242 Past Filerbb-Medqwb-Nbfnml Hx Patient Social History Alcohol Use: Regular Use Number of Drinks Today: 0 Alcohol Beverage of Choice: Vodka Drug of Choice: MARIJUANA, METHAMPHETAMINE (IV) Smoking Status: Never a Smoker 2nd Hand Smoke Exposure: Yes Recent Infectious Disease Expo: No Recent Hopitalizations: Yes Immunizations Up To Date Date of Influenza Vaccine: Jan 29, 2020 Seasonal Allergies Seasonal Allergies: No Past Medical History Surgeries: No (TUBAL) Respiratory: No Pulmonary Embolism Currently Using CPAP: No Currently Using BIPAP: No Cardiac: No Congenital Heart Disease Neurological: No Reproductive Disorders: No Sexually Transmitted Disease: No HIV/AIDS: No Genitourinary: No Gastrointestinal: Yes Hemorrhoids Musculoskeletal: No Endocrine: No HEENT: No Loss of Vision: Denies Hearing Impairment: Denies Cancer: No Psychosocial: No Anxiety, Depression Integumentary: No Blood Disorders: No Adverse Reaction/Blood Tranf: No Family Medical History Patient reports no known family medical history. denies FH of colon cancer Physical Exam Vital Signs Vital Signs - First Documented Capillary Refill : Less Than 3 Seconds Height, Weight, BMI Height: '" Weight: lbs. oz. kg; 41.00 BMI Method: Progress/Results/Core Measures Results/Orders Lab Results Laboratory Tests Test 08/07/20 23:15 08/07/20 23:43 Range/Units White Blood Count 10.3 4.3-11.0 10^3/uL Red Blood Count 5.15 H 3.80-5.11 10^6/uL Hemoglobin 13.1 11.5-16.0 g/dL Hematocrit 41 35-52 % Mean Corpuscular Volume 80 80-99 fL Mean Corpuscular Hemoglobin 25 25-34 pg Mean Corpuscular Hemoglobin Concent 32 32-36 g/dL Red Cell Distribution Width 16.1 H 10.0-14.5 % Platelet Count 400 130-400 10^3/uL Mean Platelet Volume 10.2 9.0-12.2 fL Immature Granulocyte % (Auto) 0 % Neutrophils (%) (Auto) 58 42-75 % Lymphocytes (%) (Auto) 29 12-44 % Monocytes (%) (Auto) 5 0-12 % Eosinophils (%) (Auto) 8 0-10 % Basophils (%) (Auto) 1 0-10 % Neutrophils # (Auto) 5.9 1.8-7.8 10^3/uL Lymphocytes # (Auto) 3.0 1.0-4.0 10^3/uL Monocytes # (Auto) 0.5 0.0-1.0 10^3/uL Eosinophils # (Auto) 0.8 H 0.0-0.3 10^3/uL Basophils # (Auto) 0.1 0.0-0.1 10^3/uL Immature Granulocyte # (Auto) 0.0 0.0-0.1 10^3/uL Prothrombin Time 13.5 12.2-14.7 SEC INR Comment 1.0 0.8-1.4 Activated Partial Thromboplast Time 29 24-35 SEC Sodium Level 142 135-145 MMOL/L Potassium Level 3.4 L 3.6-5.0 MMOL/L Chloride Level 103 98-107 MMOL/L Carbon Dioxide Level 27 21-32 MMOL/L Anion Gap 12 5-14 MMOL/L Blood Urea Nitrogen 18 7-18 MG/DL Creatinine 0.84 0.60-1.30 MG/DL Estimat Glomerular Filtration Rate > 60 BUN/Creatinine Ratio 21 Glucose Level 87 70-105 MG/DL Calcium Level 10.2 H 8.5-10.1 MG/DL Corrected Calcium 8.5-10.1 MG/DL Magnesium Level 1.7 1.6-2.4 MG/DL Total Bilirubin 0.3 0.1-1.0 MG/DL Aspartate Amino Transf (AST/SGOT) 27 5-34 U/L Alanine Aminotransferase (ALT/SGPT) 40 0-55 U/L Alkaline Phosphatase 72 40-136 U/L Total Creatine Kinase 101 29-168 U/L Creatine Kinase MB 0.8 <6.6 NG/ML Myoglobin 35.7 10.0-92.0 NG/ML Troponin I < 0.028 <0.028 NG/ML B-Type Natriuretic Peptide 11.3 <100.0 PG/ML Total Protein 8.4 H 6.4-8.2 GM/DL Albumin 4.7 H 3.2-4.5 GM/DL Amylase Level 52 25-125 U/L Lipase 28 8-78 U/L Urine Opiates Screen NEGATIVE NEGATIVE Urine Oxycodone Screen NEGATIVE NEGATIVE Urine Methadone Screen NEGATIVE NEGATIVE Urine Propoxyphene Screen NEGATIVE NEGATIVE Urine Barbiturates Screen NEGATIVE NEGATIVE Ur Tricyclic Antidepressants Screen NEGATIVE NEGATIVE Urine Phencyclidine Screen NEGATIVE NEGATIVE Urine Amphetamines Screen NEGATIVE NEGATIVE Urine Methamphetamines Screen NEGATIVE NEGATIVE Urine Benzodiazepines Screen NEGATIVE NEGATIVE Urine Cocaine Screen NEGATIVE NEGATIVE Urine Cannabinoids Screen NEGATIVE NEGATIVE My Orders Orders - JANENE DICKEY DO Cbc With Automated Diff (08/07/20 23:06) Magnesium (08/07/20 23:06) Ekg Tracing (08/07/20 23:06) Comprehensive Metabolic Panel (08/07/20 23:06) Myoglobin Serum (08/07/20 23:06) Protime With Inr (08/07/20 23:06) Partial Thromboplastin Time (08/07/20 23:06) O2 (08/07/20 23:06) Monitor-Rhythm Ecg Trace Only (08/07/20 23:06) Ed Iv/Invasive Line Start (08/07/20 23:06) Creatine Kinase (08/07/20 23:06) Creatine Kinase Mb (08/07/20 23:06) Lipase (08/07/20 23:06) Amylase (08/07/20 23:06) BNP (4/24/21 23:06) Troponin I (08/07/20 23:06) Aspirin Chewable Tablet (Baby Aspirin Ch (08/07/20 23:15) Drug Screen Stat (Urine) (08/07/20 23:06) Urine Bedside (08/07/20 23:06) Acetaminophen Tablet (Tylenol Tablet) (08/07/20 23:45) Chest 1 View, Ap/Pa Only (08/08/20 00:01) Medications Given in ED Current Medications Medications Dose Ordered Sig/Lakisha Route Start Time Stop Time Status Last Admin Dose Admin Acetaminophen 1,000 mg ONCE ONCE PO 08/07/20 23:45 08/07/20 23:46 DC 08/08/20 00:07 1,000 MG Aspirin 324 mg ONCE ONCE PO 08/07/20 23:15 08/07/20 23:16 DC 08/08/20 00:06 324 MG Vital Signs/I&O 08/07/20 08/07/20 23:00 23:00 Temp 36.6 Pulse 95 Resp 18 B/P (MAP) 148/95 (112) Pulse Ox 96 O2 Delivery Room Air Room Air Blood Pressure Mean: 112 Departure Impression Primary Impression: Chest wall pain Disposition: HOME, SELF-CARE Condition: Stable Departure-Patient Inst. Referrals: [facility] (PCP/Family) Primary Care Physician Patient Instructions: Chest Pain (DC) Add. Discharge Instructions: ALTERNATE ICE AND MOIST HEAT TO SORE AREAS AT 20 MINUTE INTERVALS FOLLOW UP WITH [facility] IN 3-4 DAYS FOR FURTHER CARE, RETURN TO ER IF WORSE All discharge instructions reviewed with patient and/or family. Voiced understanding. Scripts Pantoprazole Sodium (Protonix) 40 Mg Tablet.dr 40 MG PO DAILY, #15 TAB Prov: JANENE DICKEY DO 08/08/20 Methylprednisolone (Medrol) 4 Mg Tab.ds.pk 4 MG PO UD for 6 Days, #21 PKG PER DOSE PACK INSTRUCTIONS Prov: JANENE DICKEY DO 08/08/20 JANENE DICKEY DO Aug 08, 2020 00:28
[2020-08-08 00:55] VITALS: BP 110/71
--- NOTE | 2020-08-08 07:41 | Diagnostic Imaging Report ---
PATIENT HISTORY: Chest pain. TECHNIQUE: Single frontal view of the chest. COMPARISON: 07/06/2020 FINDINGS: The lung volumes are normal. No focal consolidation is seen. No large pleural effusion or pneumothorax is seen. The cardiomediastinal silhouette is normal in size and contour. No acute osseous abnormality is seen. IMPRESSION: No acute pulmonary abnormality seen. Dictated by: Dictated on workstation # [id number]
== END 2020-08-08 00:56 | disposition home or self-care (01) ==
LOC: EDUNIT# 22:42 → ER 22:44
DX: R07.89 Other chest pain (principal); Z86.711 Personal history of pulmonary embolism; Z77.22 Contact with and (suspected) exposure to environmental tobacco smoke (acute) (chronic); Z79.01 Long term (current) use of anticoagulants
CPT/HCPCS: 36415; 71045; 80053; 80306; 82150; 82550; 82553; 83690; 83735; 83874; 83880; 84484; 84703; 85025; 85610; 85730; 93005; 93041

== ENCOUNTER 2020-09-19 10:21 | Emergency (ER) | payer MEDICAID ==
[~2020-09-19] VITALS: Ht 160 cm; Wt 104.0 kg
[~2020-09-19 10:21] MED LIST changes: +METH4TAB PO; +PANT40TA2 PO; +PRD20T PO
--- NOTE | 2020-09-19 11:13 | ED Lower Extremity ---
General Chief Complaint: Lower Extremity Stated Complaint: PAIN IN RIGHT KNEECAP/ HARD TIME WALKING Nursing Triage Note: ARRIVED VIA AMB TO [facility]. STATES SHE WAS SEEN A WEEK AGO FOR POST KNEE PAIN AND WAS PRESCRIBED HYDROCODONE AND A STEROID. TODAY WOKE UP WITH THE SAME PAIN. Nursing Sepsis Screen: No Definite Risk Source: patient Exam Limitations: no limitations (LINDSEY TOLEDO MED STUDENT) History of Present Illness Date Seen by Provider: Sep 19, 2020 Time Seen by Provider: 11:07 Initial Comments Mrs Quintana is a 25 yo female that presents today for worsening bakers cyst on R side. She states that she reported to this ED a couple of weeks ago with posterior knee pain and was diagnosed with bakers cyst. She received steroids, hydrocodone, and MRI was scheduled at the time. She has completed the course of medications and has an MRI scheduled for 6-. States that it was getting better, and cyst was shrinking in size. This morning when she woke up she noticed the pain was a lot worse, and the cyst had grown in size, maybe bigger than on her last visit. She can hardly walk on it, and can't straighten her leg. She states the pain is only on the posterior side of her knee. Onset: this morning Severity: moderate Pain/Injury Location: right thigh Method of Injury: unknown (LINDSEY TOLEDO MED STUDENT) Allergies and Home Medications Allergies Coded Allergies: No Known Drug Allergies (Unverified , 05/24/20) Home Medications Amoxicillin/Potassium Clav 1 Each Tablet, 875 MG PO BID WITH MEALS Prescribed by: VALDEMAR BARTON on 05/24/20 1242 Benzocaine/Menthol 78 Gm Aerosol, 56 ML TP UD PRN for PAIN- SEE INSTRUCTIONS Prescribed by: VALDMEAR BARTON on 05/24/20 1242 Docusate Sodium 100 Mg Capsule, 100 MG PO BID PRN for CONSTIPATION-1ST LINE Prescribed by: VALDEMAR BARTON on 05/24/20 1242 Enoxaparin Sodium 40 Mg/0.4 Ml Syringe, 0 MG SQ Q24H Prescribed by: VALDEMAR BARTON on 05/24/20 1242 Ibuprofen 600 Mg Tablet, 600 MG PO Q6HR Prescribed by: VALDEMAR BARTON on 05/24/20 1242 Methylprednisolone 4 Mg Tab.ds.pk, 4 MG PO UD PER DOSE PACK INSTRUCTIONS Prescribed by: JANENE DICKEY on 08/08/2027 Pantoprazole Sodium 40 Mg Tablet.dr, 40 MG PO DAILY Prescribed by: JANENE DICKEY on 08/08/2027 Prednisone 20 Mg Tab, 40 MG PO DAILY Prescribed by: ANTONINA WINTER on 09/06/202018 Patient Home Medication List Home Medication List Reviewed: Yes (LINDSEY TOL[employer]O [employer] ANA CRISTINA) Review of Systems Constitutional: No chills, No fever, No weakness Respiratory: No cough, No phlegm, No short of breath Cardiovascular: No chest pain, No palpitations Gastrointestinal: No abdominal pain, No constipation, No diarrhea, No nausea, No vomiting Genitourinary: No dysuria, No hematuria Musculoskeletal: joint pain (R knee), joint swelling (R poplitial fossa) Skin: No rash (LINDSEY TOL[employer]O [employer] A[employer] CRISTINA) Past Exzpido-Suskel-Aycjvf Hx Patient Social History Alcohol Beverage of Choice: Vodka Drug of Choice: MARIJUANA, METHAMPHETAMINE (IV) 2nd Hand Smoke Exposure: No Recent Infectious Disease Expo: No Recent Hopitalizations: No (LINDSEY [employer]O [employer] ANA CRISTINA) Immunizations Up To Date Date of Influenza Vaccine: Jan 29, 2020 (LINDSEY [employer]OL[employer]O [employer] ANA CRISTINA) Seasonal Allergies Seasonal Allergies: No (LIND[employer]Y [employer]O [employer] A[employer] CRISTINA) Past Medical History Surgeries: Yes Tubal Ligation Respiratory: Yes (P.E. 01/2020 WHILE ) Pulmonary Embolism Currently Using CPAP: No Currently Using BIPAP: No Cardiac: Yes (P.E. 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) Congenital Heart Disease Neurological: No Last Menstrual Period: August 29, 2020 Reproductive Disorders: No [employer] History: Tubal Ligation Sexually Transmitted Disease: No HIV/AIDS: No Genitourinary: No Gastrointestinal: Yes Hemorrhoids Musculoskeletal: No Endocrine: No HEENT: No Loss of Vision: Denies Hearing Impairment: Denies Cancer: No Psychosocial: Yes (POLYSUBSTANCE ABUSE) Anxiety, Depression Integumentary: No Blood Disorders: No Adverse Reaction/Blood Tranf: No ([employer]RISTINA) Family Medical History Patient reports no known family medical history. SOCIAL HISTORY: -ETOH--REGULAR USE--FEW TIMES A WEEK/VODKA -DRUGS-+IV METH USE, THC -DENIES SMOKING (LINDSEY TOLEDO [employer] STUDENT) Physical Exam Vital Signs Vital Signs - First Documented 09/19/20 10:30 Temp 36.0 Pulse 82 Resp 16 B/P (MAP) 133/92 (106) Pulse Ox 99 O2 Delivery Room Air (ALCIDES RADFORD MD) Vital Signs Capillary Refill : Less Than 3 Seconds (LINDSEY TOLEDO MED STUDENT) Height, Weight, BMI Height: '" Weight: lbs. oz. kg; 40.00 BMI Method: General Appearance: WD/WN, no apparent distress Cardiovascular: regular rate, rhythm, no edema, no murmur Respiratory: chest non-tender, lungs clear, normal breath sounds, no respiratory distress, no accessory muscle use Gastrointestinal: normal bowel sounds, non tender, soft Hips: bilateral hip non-tender Legs: bilateral leg non-tender Knees: right knee pain, right knee soft tissue tenderness, right knee swelling Ankles: bilateral ankle non-tender Feet: bilateral foot non-tender Neurologic/Tendon: normal sensation, normal motor functions Neurologic/Psychiatric: alert, normal mood/affect, oriented x 3 Skin: normal color, warm/dry (LINDSEY TOLEDO MED STUDENT) Progress/Results/Core Measures Results/Orders Vital Signs/I&O 09/19/20 10:30 Temp 36.0 Pulse 82 Resp 16 B/P (MAP) 133/92 (106) Pulse Ox 99 O2 Delivery Room Air (ALCIDES RADFORD MD) Blood Pressure Mean: 106 Departure Impression Primary Impression: Macias's cyst of knee Qualified Codes: M71.21 - Synovial cyst of popliteal space [Macias], right knee Disposition: 01 HOME, SELF-CARE Condition: Stable Departure-Patient Inst. Decision time for Depature: 12:11 (ALCIDES RADFORD MD) Referrals: [facility] (PCP/Family) Primary Care Physician Patient Instructions: Macias's Cyst Add. Discharge Instructions: Elevate your foot and leg when possible. Try to control your pain with a combination of Tylenol (acetaminophen) up to 100 0 mg every 6 hours and/or ibuprofen up to 600 mg every 6 hours as needed. Add Ultram (tramadol) as prescribed for pain not controlled by mnfl-zbb-[id number] medications. Please be aware that Ultram may cause drowsiness and constipation. Do not drive, operate machinery, or make important decisions while on this medication until you know how this medication affects you. You may continue compressive wrapping if it is helpful. Follow through with your imaging appointment this week and follow-up with the clinic by phone the next day for further instructions. Call with questions or concerns. Return to care if symptoms are worsening or not responsive to treatment. All discharge instructions reviewed with patient and/or family. Voiced understanding. Scripts Tramadol HCl (Ultram) 50 Mg Tablet 50 MG PO Q6H PRN for PAIN-BREAKTHROUGH, #20 TAB Prov: ALCIDES RADFORD MD 09/19/20 LINDSEY TOLEDO MED STUDENT Sep 19, 2020 11:13 ALCIDES RADFORD MD Sep 19, 2020 12:15
[2020-09-19] MEDS ORDERED: TRAM-42 PO (12:15)
[2020-09-19 12:31] VITALS: BP 133/92
== END 2020-09-19 12:26 | disposition home or self-care (01) ==
LOC: EDUNIT# 10:21 → ER 10:24
DX: M71.21 Synovial cyst of popliteal space [Baker], right knee (principal); Z86.711 Personal history of pulmonary embolism; Z79.52 Long term (current) use of systemic steroids; Z79.01 Long term (current) use of anticoagulants
CPT/HCPCS: 99283

== ENCOUNTER 2020-09-23 09:41 | Emergency (ER) | payer MEDICAID ==
[~2020-09-23] VITALS: Ht 160 cm; Wt 106.1 kg
[~2020-09-23 09:41] MED LIST changes: +TRAM-42 PO
[2020-09-23 09:58] VITALS: BP 101/77
--- NOTE | 2020-09-23 10:30 | ED Lower Extremity ---
General Chief Complaint: Lower Extremity Stated Complaint: R CALF PAIN Nursing Triage Note: pt reports being seen by her pcp yesterday for knee pain. 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 pt states pcp placed a needle in her knee, since then she has had pain but over the night she began having shooting pains into her right calf that has continued to get worse. Nursing Sepsis Screen: No Definite Risk Source: patient Exam Limitations: no limitations History of Present Illness Date Seen by Provider: Sep 23, 2020 Time Seen by Provider: 10:03 Initial Comments Patient to the ER by private conveyance from home with chief complaint past week she was discovered to have a popliteal cyst on the right side and was sent to [facility]. They did an injection of steroids into her knee told her she had patellofemoral pain syndrome. She says she then felt a large popping pain this morning and has since then had some stabbing pain running down the back of her leg. She is not having any weakness or numbness or tingling. Allergies and Home Medications Allergies Coded Allergies: No Known Drug Allergies (Unverified , 05/24/20) Home Medications Amoxicillin/Potassium Clav 1 Each Tablet, 875 MG PO BID WITH MEALS Prescribed by: VALDEMAR BARTON on 05/24/20 1242 Benzocaine/Menthol 78 Gm Aerosol, 56 ML TP UD PRN for PAIN- SEE INSTRUCTIONS Prescribed by: VALDEMAR BARTON on 05/24/20 1242 Docusate Sodium 100 Mg Capsule, 100 MG PO BID PRN for CONSTIPATION-1ST LINE Prescribed by: VALDEMAR BARTON on 05/24/20 1242 Enoxaparin Sodium 40 Mg/0.4 Ml Syringe, 0 MG SQ Q24H Prescribed by: VALDEMAR BARTON on 05/24/20 1242 Hydrocodone/Acetaminophen 1 Each Tablet, 1 TAB PO Q6H PRN for PAIN-MODERATE (5- 7) Prescribed by: ANY BUSH on 09/23/20 1036 Ibuprofen 600 Mg Tablet, 600 MG PO Q6HR Prescribed by: VALDEMAR BARTON on 05/24/20 1242 Methylprednisolone 4 Mg Tab.ds.pk, 4 MG PO UD PER DOSE PACK INSTRUCTIONS Prescribed by: JANENE DICKEY on 08/08/2027 Pantoprazole Sodium 40 Mg Tablet.dr, 40 MG PO DAILY Prescribed by: JANENE DICKEY on 08/08/20 0028 Prednisone 20 Mg Tab, 40 MG PO DAILY Prescribed by: ANTONINA WINTER on 09/06/202018 Tramadol HCl 50 Mg Tablet, 50 MG PO Q6H PRN for PAIN-BREAKTHROUGH Prescribed by: ALCIDES CONNELLY on 09/19/20 1215 Patient Home Medication List Home Medication List Reviewed: Yes Review of Systems Constitutional: No chills, No diaphoresis EENTM: No ear discharge, No ear pain Respiratory: No cough, No short of breath Cardiovascular: No chest pain, No palpitations Gastrointestinal: No abdominal pain, No nausea Genitourinary: No discharge, No dysuria Musculoskeletal: see HPI; No back pain; joint pain All Other Systems Reviewed Negative Unless Noted: Yes Past Cxnjnjh-Eybkrj-Ktcmco Hx Patient Social History Alcohol Use: Occasionally Uses Number of Drinks Today: FF Alcohol Beverage of Choice: Vodka Drug of Choice: MARIJUANA, METHAMPHETAMINE (IV) Smoking Status: Never a Smoker 2nd Hand Smoke Exposure: No Recent Infectious Disease Expo: No Recent Hopitalizations: No Immunizations Up To Date Date of Influenza Vaccine: Jan 29, 2020 Seasonal Allergies Seasonal Allergies: No Past Medical History Surgeries: Yes Tubal Ligation Respiratory: Yes (P.E. 01/2020 WHILE ) Pulmonary Embolism Currently Using CPAP: No Currently Using BIPAP: No Cardiac: Yes (P.E. 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 SOCIAL HISTORY: -ETOH--REGULAR USE--FEW TIMES A WEEK/VODKA -DRUGS-+IV METH USE, THC -DENIES SMOKING Physical Exam Vital Signs Vital Signs - First Documented 09/23/20 09:58 Temp 36.7 Pulse 84 Resp 16 B/P (MAP) 101/77 (85) Pulse Ox 99 Capillary Refill : Less Than 3 Seconds Height, Weight, BMI Height: '" Weight: lbs. oz. kg; 41.00 BMI Method: General Appearance: WD/WN, mild distress Neck: full range of motion, normal inspection Cardiovascular: normal peripheral pulses, regular rate, rhythm, other (Dorsal pedal pulse 2 out of 4 bilateral symmetric) Respiratory: no respiratory distress, no accessory muscle use Knees: left knee non-tender; bilateral knee normal inspection, bilateral knee normal range of motion, bilateral knee no evidence of injury; right knee bone tenderness (Popliteal fossa and posterior tibial nerve distribution tenderness to palpation mild but not firm), right knee other (No evidence of compartment syndrome by palpation) Ankles: bilateral ankle non-tender, bilateral ankle normal inspection, bilateral ankle normal range of motion, bilateral ankle no evidence of injury Neurologic/Tendon: normal sensation, normal motor functions, normal tendon functions, responds to pain, no evidence tendon injury Neurologic/Psychiatric: no motor/sensory deficits, alert, oriented x 3 Skin: normal color, warm/dry Progress/Results/Core Measures Results/Orders Vital Signs/I&O 09/23/20 09:58 Temp 36.7 Pulse 84 Resp 16 B/P (MAP) 101/77 (85) Pulse Ox 99 Blood Pressure Mean: 85 Progress Progress Note : Time: 10:30 Progress Note She is neurologically intact. I do suspect she had a popliteal cyst rupture r esulting in some mild posterior tibial nerve entrapment. I have encouraged her to go on a steady diet of NSAIDs and will give her some hydrocodone to manage her severe pain. Ice heat and elevation. Couple days off work. Follow-up next week with orthopedics. Return precautions were given. Departure Impression Primary Impression: Rupture of popliteal cyst of right knee region Disposition: 01 HOME, SELF-CARE Condition: Stable Departure-Patient Inst. Decision time for Depature: 10:30 Referrals: [facility] (PCP/Family) Primary Care Physician Patient Instructions: Macias's Cyst (DC) Add. Discharge Instructions: Try alternating ice and heat for pain relief. Topical cream such as icy hot or Biofreeze might help. Tylenol 650 mg every 6 hours as necessary for pain. Ibuprofen 800 mg every 8 hours on a scheduled basis to reduce inflammation. Hydrocodone 1 tablet every 6 hours as necessary for severe breakthrough pain. Follow-up in the next 1 to 2 weeks with orthopedic surgery for appropriate symptom management. Expect relief of symptoms over the next 1 to 2 weeks. Compress your knee with a neoprene sleeve or Evaristo wrap. Elevate your knee above the level of your heart when possible. All discharge instructions reviewed with patient and/or family. Voiced understanding. Scripts Hydrocodone/Acetaminophen (Hydrocodone-Acetamin 5-325 mg) 1 Each Tablet 1 TAB PO Q6H PRN for PAIN-MODERATE (5-7), #15 TAB 0 Refills Prov: ANY BUSH 09/23/20 Work/School Note: Work Release Form Date Seen in the Emergency Department: Sep 23, 2020 Return to Work: Sep 26, 2020 Restrictions: No Restrictions Other Restrictions Listed Below: May return sooner if feeling better. ANY BUSH Sep 23, 2020 10:30
[2020-09-23] MEDS ORDERED: ACHD5005 PO (10:36)
== END 2020-09-23 10:43 | disposition home or self-care (01) ==
LOC: EDUNIT# 09:41 → ER 09:42
DX: M66.0 Rupture of popliteal cyst (principal); Q24.9 Congenital malformation of heart, unspecified
CPT/HCPCS: 99283

== ENCOUNTER 2020-10-13 16:47 | Emergency (ER) | payer MEDICAID ==
[~2020-10-13 16:47] MED LIST changes: +ACHD5005 PO
[2020-10-13 16:59] LABS: BILIRUBIN,URINE NEGATIVE (NEGATIVE); COLOR,URINE YELLOW; GLUCOSE, URINE (UA) NEGATIVE (NEGATIVE); KETONES,URINE NEGATIVE (NEGATIVE); LEUKOCYTE ESTERASE ,URINE NEGATIVE (NEGATIVE); NITRITE,URINE NEGATIVE (NEGATIVE); PROTEIN,URINE NEGATIVE (NEGATIVE)
[2020-10-13 17:06] LABS: BACTERIA,URINE FEW /HPF; CLARITY,URINE SL CLOUDY; WBC,URINE 0-2 /HPF
--- NOTE | 2020-10-13 17:15 | ED General ---
General Chief Complaint: General Problems/Pain Stated Complaint: N/V AND BODY ACHES/ FINK Nursing Triage Note: ARRIVED VIA AMB TO ROOM 06 WITH COMPLAINTS OF HEADACHE, N/V/ HOT FLASHES, BODY ACHES, AND WAKING UP WITH HER EYES BEING MATTED SHUT. Source of Information: Patient Exam Limitations: No Limitations (JOANNA ANNE APRN) History of Present Illness Date Seen by Provider: Oct 13, 2020 Time Seen by Provider: 16:58 Initial Comments This is a well-appearing 25-year-old female who presents to the ER with complaints of headache, body aches, nausea, vomiting, diarrhea x2 episodes since yesterday. States that she woke up this morning with her eyes matted shut and pain in her left posterior shoulder that radiated into the side of her neck and head. FINK rates 8/10, dull ache, and unchanged from prior headaches. Denies any trauma. States Tylenol and Ibuprofen helps with chills and body aches. Has not had COVID vaccine. LMP 09/26/2020. (JOANNA ANNE DOCUMENTATION COORDINATOR) Allergies and Home Medications Allergies Coded Allergies: No Known Drug Allergies (Unverified , 05/24/20) Home Medications Amoxicillin/Potassium Clav 1 Each Tablet, 875 MG PO BID WITH MEALS Prescribed by: VALDEMAR BARTON on 05/24/20 1242 Benzocaine/Menthol 78 Gm Aerosol, 56 ML TP UD PRN for PAIN- SEE INSTRUCTIONS Prescribed by: VALDEMAR BARTON on 05/24/20 1242 Docusate Sodium 100 Mg Capsule, 100 MG PO BID PRN for CONSTIPATION-1ST LINE Prescribed by: VALDEMAR BARTON on 05/24/20 1242 Enoxaparin Sodium 40 Mg/0.4 Ml Syringe, 0 MG SQ Q24H Prescribed by: VALDEMAR BARTON on 05/24/20 1242 Hydrocodone/Acetaminophen 1 Each Tablet, 1 TAB PO Q6H PRN for PAIN-MODERATE (5- 7) Prescribed by: ANY BUSH on 09/23/20 1036 Ibuprofen 600 Mg Tablet, 600 MG PO Q6HR Prescribed by: VALDEMAR BARTON on 05/24/20 1242 Methylprednisolone 4 Mg Tab.ds.pk, 4 MG PO UD PER DOSE PACK INSTRUCTIONS Prescribed by: JANENE DICKEY on 08/08/20 0028 Ondansetron 4 Mg Tab.rapdis, 4 MG PO Q6H PRN for NAUSEA-1ST LINE Prescribed by: JOANNA ANNE on 10/13/20 181 Pantoprazole Sodium 40 Mg Tablet.dr, 40 MG PO DAILY Prescribed by: JANENE DICKEY on 08/08/20 0028 Prednisone 20 Mg Tab, 40 MG PO DAILY Prescribed by: ANTONINA WINTER on 09/06/202018 Tramadol HCl 50 Mg Tablet, 50 MG PO Q6H PRN for PAIN-BREAKTHROUGH Prescribed by: ALCIDES CONNELLY on 09/19/20 1215 Patient Home Medication List Home Medication List Reviewed: Yes (JOANNA ANNE APRN) Review of Systems Review of Systems Constitutional: see HPI EENTM: no symptoms reported Respiratory: no symptoms reported Cardiovascular: no symptoms reported Gastrointestinal: see HPI Genitourinary: no symptoms reported Musculoskeletal: see HPI Skin: no symptoms reported Psychiatric/Neurological: No Symptoms Reported Hematologic/Lymphatic: No Symptoms Reported Immunological/Allergic: no symptoms reported (JOANNA ANNE APRN) Past Wgzkgjg-Uovdwv-Qqghfd Hx Patient Social History Tobacco Use?: No Substance use?: No Alcohol Use?: No (JOANNA ANNE APRN) Seasonal Allergies Seasonal Allergies: No (JOANNA ANNE APRN) Past Medical History Surgeries: Yes Tubal Ligation Respiratory: Yes (P.E. 01/2020 WHILE ) Pulmonary Embolism Currently Using CPAP: No Currently Using BIPAP: No Cardiac: Yes (P.E. 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 SOCIAL HISTORY: -ETOH--REGULAR USE--FEW TIMES A WEEK/VODKA -DRUGS-+IV METH USE, THC -DENIES SMOKING (JOANNA ANNE APRN) Physical Exam Vital Signs Vital Signs - First Documented 10/13/20 17:03 Temp 35.2 Pulse 90 Resp 16 B/P (MAP) 150/83 (105) Pulse Ox 97 O2 Delivery Room Air (ALCIDES RADFORD MD) Vital Signs Capillary Refill : Less Than 3 Seconds (JOANNA ANNE APRN) Height, Weight, BMI Height: '" Weight: lbs. oz. kg; 41.00 BMI Method: General Appearance: No Apparent Distress, WD/WN Eyes: Bilateral Eye Normal Inspection (no conjunctival discharge, injection, or icterus ), Bilateral Eye PERRL, Bilateral Eye EOMI HEENT: PERRL/EOMI, TMs Normal, Normal ENT Inspection, Pharynx Normal, Moist Mucous Membranes; No Pharyngeal Erythema, No Photophobia, No Scleral Icterus (L), No Scleral Icterus (R) Neck: Full Range of Motion, Normal Inspection, Non Tender, Supple Respiratory: Lungs Clear, Normal Breath Sounds, No Accessory Muscle Use, No Respiratory Distress Cardiovascular: Regular Rate, Rhythm, No Murmur, Normal Peripheral Pulses Gastrointestinal: Normal Bowel Sounds, Non Tender, Soft; No Distended, No Guarding, No Hepatomegaly, No Splenomegaly Back: Normal Inspection, No Vertebral Tenderness Extremity: Normal Capillary Refill, Normal Range of Motion Neurologic/Psychiatric: Alert, Oriented x3, No Motor/Sensory Deficits, Normal Mood/Affect Skin: Normal Color, Warm/Dry (JOANNA ANNE APRN) Progress/Results/Core Measures Suspected Sepsis SIRS Temperature: Pulse: 90 Respiratory Rate: 16 Blood Pressure 150 /83 Mean: 105 (JOANNA ANNE APRN) Results/Orders Lab Results Laboratory Tests Test 10/13/20 16:52 10/13/20 17:10 Range/Units Urine Color YELLOW Urine Clarity SL CLOUDY Urine pH 6.0 5-9 Urine Specific Martinez >=1.030 1.016-1.022 Urine Protein NEGATIVE NEGATIVE Urine Glucose (UA) NEGATIVE NEGATIVE Urine Ketones NEGATIVE NEGATIVE Urine Nitrite NEGATIVE NEGATIVE Urine Bilirubin NEGATIVE NEGATIVE Urine Urobilinogen 0.2 < = 1.0 MG/DL Urine Leukocyte Esterase NEGATIVE NEGATIVE Urine RBC (Auto) NEGATIVE NEGATIVE Urine RBC NONE /HPF Urine WBC 0-2 /HPF Urine Squamous Epithelial Cells 10-25 H /HPF Urine Crystals NONE /LPF Urine Bacteria FEW H /HPF Urine Casts NONE /LPF Urine Mucus NEGATIVE /LPF Urine Culture Indicated NO Urine Test NEGATIVE NEGATIVE Influenza Type A (RT-PCR) Not Detected Not Detecte Influenza Type B (RT-PCR) Not Detected Not Detecte SARS-CoV-2 RNA (RT-PCR) Not Detected Not Detecte (ALCIDES RADFORD MD) Vital Signs/I&O 10/13/20 10/13/20 17:03 18:24 Temp 35.2 35.2 Pulse 90 90 Resp 16 16 B/P (MAP) 150/83 (105) 150/83 (105) Pulse Ox 97 97 O2 Delivery Room Air (ALCIDES RADFORD MD) Vital Signs/I&O Capillary Refill : Less Than 3 Seconds (JOANNA ANNE APRN) Blood Pressure Mean: 105 Progress Note : Progress Note Patient examined and in no acute distress. VSS. COVID and Flu swabs negative. UA clear. Symptoms are likely from viral origin. Reviewed discharge plan of care, orders given for Zofran p.o. and Toradol 60 mg IM for headache. Reviewed discharge plan of care and she is agreeable with plan. No concerns voiced. (JOANNA ANNE APRN) Departure Impression Primary Impression: Viral illness Disposition: HOME, SELF-CARE Condition: Improved Departure-Patient Inst. Decision time for Depature: 18:12 (JOANNA ANNE APRN) Referrals: [facility] (PCP/Family) Primary Care Physician Patient Instructions: Viral Syndrome (DC) Add. Discharge Instructions: Plan: 1. May take Tylenol or Ibuprofen as needed for pain/fever per package. 2. May take Zofran 4mg by mouth every 6 hours as needed for nausea. 3. Follow up with your doctor if your symptoms persist. 4. Return to ER for any new, concerning, or worsening symptoms. All discharge instructions reviewed with patient and/or family. Voiced understanding. Scripts Ondansetron (Ondansetron Odt) 4 Mg Tab.rapdis 4 MG PO Q6H PRN for NAUSEA-1ST LINE, #30 TAB 0 Refills Prov: JOANNA ANNE APRN 10/13/20 Work/School Note: Work Release Form Date Seen in the Emergency Department: Oct 13, 2020 Return to Work: Oct 16, 2020 Restrictions: No Restrictions ATTENDING PHYSICIAN NOTE: I was physically present as attending physician in the emergency department during the care of this patient, but I was not directly involved in the decision making or delivery of care for this patient. (ALCIDES RADFORD MD) JOANNA ANNE APRN Oct 13, 2020 17:15 ALCIDES RADFORD MD Oct 15, 2020 07:00
[2020-10-13] MEDS ORDERED: ONDA4TAB11 PO (18:15)
[2020-10-13] MEDS ORDERED: KETOROLAC 60 MG/2 ML VIAL IM ONE (18:15)
[2020-10-13] MEDS ORDERED: ONDANSETRON 4 MG (ZOFRAN) ORAL DISSOLVE TAB PO ONE (18:15)
[2020-10-13 18:24] VITALS: BP 150/83
== END 2020-10-13 18:24 | disposition home or self-care (01) ==
LOC: EDUNIT# 16:47 → ER 16:50
DX: B34.9 Viral infection, unspecified (principal); Z20.822 Contact with and (suspected) exposure to COVID-19; Z86.711 Personal history of pulmonary embolism; Z79.52 Long term (current) use of systemic steroids; Z79.01 Long term (current) use of anticoagulants
CPT/HCPCS: 81000; 84703; 87636; 96372; 99282

== ENCOUNTER 2020-10-23 23:25 | Emergency (ER) | payer MEDICAID ==
[~2020-10-23] VITALS: Ht 160 cm; Wt 106.0 kg
[~2020-10-23 23:25] MED LIST changes: +ONDA4TAB11 PO
--- NOTE | 2020-10-24 00:42 | ED Lower Extremity ---
General Chief Complaint: Lower Extremity Stated Complaint: SUSAN KNEE PAIN Source: patient Exam Limitations: no limitations History of Present Illness Date Seen by Provider: Oct 24, 2020 Time Seen by Provider: 00:36 Initial Comments Patient is a 25-year-old female who presents to the emergency department today with bilateral knee pain, left anterior knee pain and bilateral popliteal fossa pain. Patient states she was diagnosed about a month ago with Macias's cyst behind both knees and one that had possibly "ruptured" behind her right knee. Patient states that she has run out of hydrocodone and tramadol and has been taking ibuprofen without much relief of symptoms. She states she was working tonight and had severe pain so decided to come into the emergency department. Patient denies any numbness tingling or weakness to her lower extremities. Just pain in the popliteal fossa's bilaterally. All other review of systems reviewed and negative except as stated. Onset: last week Modifying Factors: Worse With Movement; Improves With Pain Medication Allergies and Home Medications Allergies Coded Allergies: No Known Drug Allergies (Unverified , 05/24/20) Home Medications Amoxicillin/Potassium Clav 1 Each Tablet, 875 MG PO BID WITH MEALS Prescribed by: VALDEMAR BARTON on 05/24/20 1242 Benzocaine/Menthol 78 Gm Aerosol, 56 ML TP UD PRN for PAIN- SEE INSTRUCTIONS Prescribed by: VALDEMAR BARTON on 05/24/20 1242 Docusate Sodium 100 Mg Capsule, 100 MG PO BID PRN for CONSTIPATION-1ST LINE Prescribed by: VALDEMAR BARTON on 05/24/20 1242 Enoxaparin Sodium 40 Mg/0.4 Ml Syringe, 0 MG SQ Q24H Prescribed by: VALDEMAR BARTON on 05/24/20 1242 Hydrocodone/Acetaminophen 1 Each Tablet, 1 TAB PO Q6H PRN for PAIN-MODERATE (5- 7) Prescribed by: ANY BUSH on 09/23/20 1036 Ibuprofen 600 Mg Tablet, 600 MG PO Q6HR Prescribed by: VALDEMAR BARTON on 05/24/20 1242 Methylprednisolone 4 Mg Tab.ds.pk, 4 MG PO UD PER DOSE PACK INSTRUCTIONS Prescribed by: JANENE DICKEY on 08/08/20 0028 Ondansetron 4 Mg Tab.rapdis, 4 MG PO Q6H PRN for NAUSEA-1ST LINE Prescribed by: JOANNA ANNE on 6/30/21 1815 Pantoprazole Sodium 40 Mg Tablet.dr, 40 MG PO DAILY Prescribed by: JANENE DICKEY on 08/08/20 0028 Prednisone 20 Mg Tab, 40 MG PO DAILY Prescribed by: ANTONINA WINTER on 09/06/202018 Tramadol HCl 50 Mg Tablet, 50 MG PO Q6H PRN for PAIN-BREAKTHROUGH Prescribed by: ALCIDES CONNELLY on 09/19/20 1215 Patient Home Medication List Home Medication List Reviewed: Yes Review of Systems Constitutional: see HPI EENTM: no symptoms reported Respiratory: no symptoms reported Cardiovascular: no symptoms reported Gastrointestinal: no symptoms reported Genitourinary: no symptoms reported Musculoskeletal: other (Bilateral knee pain) Skin: no symptoms reported All Other Systems Reviewed Negative Unless Noted: Yes Past Nmwbpyv-Nkruav-Slqycv Hx Seasonal Allergies Seasonal Allergies: No Past Medical History Surgeries: Yes Tubal Ligation Respiratory: Yes (P.E. 01/2020 WHILE ) Pulmonary Embolism Currently Using CPAP: No Currently Using BIPAP: No Cardiac: Yes (P.E. 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 SOCIAL HISTORY: -ETOH--REGULAR USE--FEW TIMES A WEEK/VODKA -DRUGS-+IV METH USE, THC -DENIES SMOKING Physical Exam Vital Signs Capillary Refill : Height, Weight, BMI Height: '" Weight: lbs. oz. kg; 41.00 BMI Method: General Appearance: WD/WN, no apparent distress Neck: normal inspection Cardiovascular: regular rate, rhythm Respiratory: no respiratory distress, no accessory muscle use Hips: bilateral hip non-tender, bilateral hip normal inspection, bilateral hip normal range of motion, bilateral hip no evidence of injury Legs: bilateral leg non-tender, bilateral leg normal inspection, bilateral leg normal range of motion, bilateral leg no evidence of injury Knees: left knee pain (Small amount of lateral joint line tenderness); bilateral knee other (Patient has a little tenderness to palpation of the bilateral popliteal fossa's. No significant swelling is noted, no masses, no calf tenderness; good range of motion of both knees) Ankles: bilateral ankle non-tender, bilateral ankle normal inspection, bilateral ankle normal range of motion, bilateral ankle no evidence of injury Feet: bilateral foot non-tender, bilateral foot normal inspection, bilateral foot normal range of motion, bilateral foot no evidence of injury Neurologic/Tendon: normal sensation, normal motor functions, normal tendon functions Neurologic/Psychiatric: alert, normal mood/affect, oriented x 3 Skin: normal color, warm/dry Departure Impression Primary Impression: Bilateral knee pain Qualified Codes: M25.561 - Pain in right knee; M25.562 - Pain in left knee; G89.29 - Other chronic pain Disposition: 01 HOME, SELF-CARE Condition: Stable Departure-Patient Inst. Decision time for Depature: 00:47 Referrals: [facility] (PCP/Family) Primary Care Physician Patient Instructions: Chronic Knee Pain (DC) Add. Discharge Instructions: You can use cqyy-ahu-afvjywx "salon pas" or lidocaine patches to the back of both knees as needed/directed. Meloxicam daily. Do not take additional ibuprofen while taking meloxicam. Tramadol, 50 mg, 1 every 6 hours as needed for severe pain. Ice to the back of your knees 20 minutes at a time 2-3 times daily as you are able to do. Follow-up with orthopedics as scheduled. Follow-up with your primary care physician. Return to the emergency department for any new, concerning or emergent complaints. Scripts Tramadol HCl (Tramadol HCl) 50 Mg Tablet 50 MG PO Q6H PRN for PAIN, #15 TAB 0 Refills Prov: CUATE VILLASENOR MD 10/24/20 Meloxicam (Meloxicam) 7.5 Mg Tablet 7.5 MG PO DAILY, #30 TAB Prov: CUATE VILLASENOR MD 10/24/20 CUATE VILLASENOR MD Oct 24, 2020 00:42
[2020-10-24] MEDS ORDERED: TRM50T PO (00:49)
[2020-10-24] MEDS ORDERED: MELO7.5T46 PO (00:49)
[2020-10-24 00:50] VITALS: BP 140/98
== END 2020-10-24 01:18 | disposition home or self-care (01) ==
LOC: EDUNIT# 23:25 → ER 23:27
DX: M25.561 Pain in right knee (principal); M25.562 Pain in left knee; Z86.711 Personal history of pulmonary embolism; Z79.01 Long term (current) use of anticoagulants; Z79.52 Long term (current) use of systemic steroids
CPT/HCPCS: 99283

== ENCOUNTER 2020-11-04 10:38 | Emergency (ER) | payer MEDICAID ==
[~2020-11-04] VITALS: Ht 160 cm; Wt 109.0 kg
[~2020-11-04 10:38] MED LIST changes: +MELO7.5T46 PO; +TRM50T PO
[2020-11-04 10:44] VITALS: BP 129/95
--- NOTE | 2020-11-04 11:12 | ED Lower Extremity ---
General Chief Complaint: Lower Extremity Stated Complaint: L LEG PAIN/NUMBNESS Nursing Triage Note: PT AMB TO FT3 PT CO OF L UPPER AND LOWER LEG NUMBNESS, TINGLING AND PAIN. STARTED YESTERDAY Source: patient Exam Limitations: no limitations (ANY BUSH) History of Present Illness Date Seen by Provider: Nov 04, 2020 Time Seen by Provider: 10:44 Initial Comments Patient to the ER by private conveyance from home with chief complaint of 1 week of dull achy pain on her left lateral thigh radiating down to her proximal tibia anteriorly. She has a history of right patellofemoral syndrome. She tried some Tylenol Motrin which did not help. She already takes tramadol with no relief of pain. (ANY BUSH) Initial Comments To ER with left leg pain is in the posterior left thigh and the posterior and medial left lower leg. No injury no fevers no chills no loss of bowel or bladder control no loss of sensation of her genitals. The tingling goes all the way down to her toes. There is no redness or swelling. No history of this. Onset: last week Severity: moderate Pain/Injury Location: left leg, left thigh Method of Injury: unknown Modifying Factors: Worse With Movement (ANTONINA WINTER APRN) Allergies and Home Medications Allergies Coded Allergies: No Known Drug Allergies (Unverified , 05/24/20) Home Medications Amoxicillin/Potassium Clav 1 Each Tablet, 875 MG PO BID WITH MEALS Prescribed by: VALDEMAR BARTON on 05/24/20 1242 Benzocaine/Menthol 78 Gm Aerosol, 56 ML TP UD PRN for PAIN- SEE INSTRUCTIONS Prescribed by: VALDEMAR BARTON on 05/24/20 1242 Docusate Sodium 100 Mg Capsule, 100 MG PO BID PRN for CONSTIPATION-1ST LINE Prescribed by: VALDEMAR BARTON on 05/24/20 1242 Enoxaparin Sodium 40 Mg/0.4 Ml Syringe, 0 MG SQ Q24H Prescribed by: VALDEMAR BARTON on 05/24/20 1242 Hydrocodone/Acetaminophen 1 Each Tablet, 1 TAB PO Q6H PRN for PAIN-MODERATE (5- 7) Prescribed by: ANY BUSH on 09/23/20 1036 Ibuprofen 600 Mg Tablet, 600 MG PO Q6HR Prescribed by: VALDEMAR BARTON on 05/24/20 1242 Meloxicam 7.5 Mg Tablet, 7.5 MG PO DAILY Prescribed by: CUATE VILLASENOR on 10/24/20 0049 Methylprednisolone 4 Mg Tab.ds.pk, 4 MG PO UD PER DOSE PACK INSTRUCTIONS Prescribed by: JANENE DICKEY on 08/08/20 0028 Ondansetron 4 Mg Tab.rapdis, 4 MG PO Q6H PRN for NAUSEA-1ST LINE Prescribed by: JOANNA ANNE on 10/13/201814 Pantoprazole Sodium 40 Mg Tablet.dr, 40 MG PO DAILY Prescribed by: JANENE DICKEY on 08/08/2027 Prednisone 20 Mg Tab, 40 MG PO DAILY Prescribed by: ANTONINA WINTER on 09/06/202018 Tramadol HCl 50 Mg Tablet, 50 MG PO Q6H PRN for PAIN-BREAKTHROUGH Prescribed by: ALCIDES CONNELLY on 09/19/20 121 Tramadol HCl 50 Mg Tablet, 50 MG PO Q6H PRN for PAIN Prescribed by: CUATE VILLASENOR on 10/24/20 0050 Patient Home Medication List Home Medication List Reviewed: Yes (ANTONINA WINTER APRN) Review of Systems Constitutional: see HPI EENTM: see HPI Respiratory: no symptoms reported Cardiovascular: no symptoms reported Genitourinary: no symptoms reported Musculoskeletal: see HPI Skin: no symptoms reported Psychiatric/Neurological: No Symptoms Reported (ANTONINA WINTER APRN) Past Ahklyie-Mxjssx-Osugmj Hx Patient Social History Tobacco Use?: No Substance use?: No Alcohol Use?: No Pt feels they are or have been: No (ANY BUSH) Seasonal Allergies Seasonal Allergies: No (ANY BUSH) Past Medical History Surgeries: Yes Tubal Ligation Respiratory: Yes (P.E. 01/2020 WHILE ) Pulmonary Embolism Currently Using CPAP: No Currently Using BIPAP: No Cardiac: Yes (P.E. 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 SOCIAL HISTORY: -ETOH--REGULAR USE--FEW TIMES A WEEK/VODKA -DRUGS-+IV METH USE, THC -DENIES SMOKING (ANY BUSH) Physical Exam Vital Signs Vital Signs - First Documented 11/04/20 10:44 Temp 36.1 Pulse 73 Resp 18 B/P (MAP) 129/95 (106) Pulse Ox 98 O2 Delivery Room Air (ANTONINA WINTER APRN) Vital Signs Capillary Refill : Less Than 3 Seconds (ANY BUSH) Height, Weight, BMI Height: '" Weight: lbs. oz. kg; 42.00 BMI Method: (ANY BUSH) General Appearance: WD/WN, no apparent distress, obese HEENT: PERRL/EOMI Respiratory: no respiratory distress, no accessory muscle use Hips: bilateral hip non-tender, bilateral hip normal inspection, bilateral hip normal range of motion Legs: bilateral leg non-tender, bilateral leg normal inspection, bilateral leg normal range of motion Knees: bilateral knee non-tender, bilateral knee normal inspection, bilateral knee normal range of motion Ankles: bilateral ankle non-tender, bilateral ankle normal inspection, bilateral ankle normal range of motion Feet: bilateral foot non-tender, bilateral foot normal inspection, bilateral foot normal range of motion Neurologic/Psychiatric: alert, normal mood/affect, oriented x 3 Skin: normal color, warm/dry Strong dorsalis pedis pulse. (ANTONINA WINTER APRN) Progress/Results/Core Measures Results/Orders Vital Signs/I&O 11/04/20 10:44 Temp 36.1 Pulse 73 Resp 18 B/P (MAP) 129/95 (106) Pulse Ox 98 O2 Delivery Room Air (ANTONINA WINTER APRN) Blood Pressure Mean: 106 Departure Impression Primary Impression: Lumbar radiculopathy, acute Disposition: 01 HOME, SELF-CARE Condition: Stable Departure-Patient Inst. Decision time for Depature: 11:34 (ANTONINA WINTER APRN) Referrals: [facility] (PCP/Family) Primary Care Physician Patient Instructions: Radiculopathy Add. Discharge Instructions: 1. Return to ER for any concerns 2. Follow-up with your doctor next week 3. All discharge instructions reviewed with patient and/or family. Voiced understanding. Scripts Gabapentin (Gabapentin) 100 Mg Capsule 200 MG PO Q8H PRN for PAIN-MODERATE (5-7), #30 CAP Prov: ANTONINA WINTER APRN 11/04/20 Prednisone (Prednisone) 20 Mg Tab 40 MG PO DAILY, #8 TAB 0 Refills Prov: ANTONINA WINTER APRN 11/04/20 Work/School Note: Work Release Form Date Seen in the Emergency Department: Nov 04, 2020 Return to Work: Nov 06, 2020 ANY BUSH Nov 04, 2020 11:12 ANTONINA WINTER APRN Nov 04, 2020 11:36
[2020-11-04] MEDS ORDERED: PRD20T PO (11:37)
[2020-11-04] MEDS ORDERED: GABA-486 PO (11:37)
== END 2020-11-04 11:54 | disposition home or self-care (01) ==
LOC: EDUNIT# 10:38 → ER 10:40
DX: M54.16 Radiculopathy, lumbar region (principal); E66.9 Obesity, unspecified; Z68.41 Body mass index [BMI] 40.0-44.9, adult; Z86.718 Personal history of other venous thrombosis and embolism; Z79.01 Long term (current) use of anticoagulants; Z79.52 Long term (current) use of systemic steroids
CPT/HCPCS: 99283

== ENCOUNTER 2020-11-07 00:14 | Emergency (ER) | payer MEDICAID ==
[~2020-11-07] VITALS: Ht 160 cm; Wt 109.0 kg
[~2020-11-07 00:14] MED LIST changes: +GABA-486 PO
[2020-11-07 01:48] VITALS: BP 135/96
--- NOTE | 2020-11-07 02:06 | ED Cough/URI ---
General Chief Complaint: Respiratory Problems Stated Complaint: SOB / FINK / COVID EXPOSED Nursing Triage Note: Patient states that she has felt like she has been unable to catch her breath today. She states that they have been exposed to approx. 4 people that have been covid positive. Patient states chills but no fever and states severe headache. Allergies and Home Medications Allergies Coded Allergies: No Known Drug Allergies (Unverified , 05/24/20) Home Medications Amoxicillin/Potassium Clav 1 Each Tablet, 875 MG PO BID WITH MEALS Prescribed by: VALDEMAR BARTON on 05/24/20 1242 Benzocaine/Menthol 78 Gm Aerosol, 56 ML TP UD PRN for PAIN- SEE INSTRUCTIONS Prescribed by: VALDEMAR BARTON on 05/24/20 1242 Docusate Sodium 100 Mg Capsule, 100 MG PO BID PRN for CONSTIPATION-1ST LINE Prescribed by: VALDEMAR BARTON on 05/24/20 1242 Enoxaparin Sodium 40 Mg/0.4 Ml Syringe, 0 MG SQ Q24H Prescribed by: VALDEMAR BARTON on 05/24/20 1242 Gabapentin 100 Mg Capsule, 200 MG PO Q8H PRN for PAIN-MODERATE (5-7) Prescribed by: ANTONINA WINTER on 11/04/20 1137 Hydrocodone/Acetaminophen 1 Each Tablet, 1 TAB PO Q6H PRN for PAIN-MODERATE (5- 7) Prescribed by: ANY BUSH on 09/23/20 1036 Ibuprofen 600 Mg Tablet, 600 MG PO Q6HR Prescribed by: VALDEMAR BARTON on 05/24/20 1242 Meloxicam 7.5 Mg Tablet, 7.5 MG PO DAILY Prescribed by: CUATE VILLASENOR on 10/24/20 0049 Methylprednisolone 4 Mg Tab.ds.pk, 4 MG PO UD PER DOSE PACK INSTRUCTIONS Prescribed by: JANENE DICKEY on 08/08/20 0028 Ondansetron 4 Mg Tab.rapdis, 4 MG PO Q6H PRN for NAUSEA-1ST LINE Prescribed by: JOANNA ANNE on 10/13/201814 Pantoprazole Sodium 40 Mg Tablet.dr, 40 MG PO DAILY Prescribed by: JANENE DICKEY on 08/08/20 0028 Prednisone 20 Mg Tab, 40 MG PO DAILY Prescribed by: ANTONINA WINTER on 09/06/202018 Prednisone 20 Mg Tab, 40 MG PO DAILY Prescribed by: ANTONINA WINTER on 11/04/20 1137 Tramadol HCl 50 Mg Tablet, 50 MG PO Q6H PRN for PAIN-BREAKTHROUGH Prescribed by: ALCIDES CONNELLY on 09/19/20 1215 Tramadol HCl 50 Mg Tablet, 50 MG PO Q6H PRN for PAIN Prescribed by: CUATE VILLASENOR on 10/24/20 0050 Past Tdowouk-Auxask-Zoijrt Hx Seasonal Allergies Seasonal Allergies: No Past Medical History Surgeries: Yes Tubal Ligation Respiratory: Yes (P.E. 01/2020 WHILE ) Pulmonary Embolism Currently Using CPAP: No Currently Using BIPAP: No Cardiac: Yes (P.E. 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 SOCIAL HISTORY: -ETOH--REGULAR USE--FEW TIMES A WEEK/VODKA -DRUGS-+IV METH USE, THC -DENIES SMOKING Physical Exam Vital Signs - First Documented 11/07/20 01:48 Temp 36.4 Pulse 73 Resp 16 B/P (MAP) 135/96 (109) Pulse Ox 96 O2 Delivery Room Air Capillary Refill : Less Than 3 Seconds Height: '" Weight: lbs. oz. kg; 42.00 BMI Method: Progress/Results/Core Measures Suspected Sepsis SIRS Temperature: Pulse: 73 Respiratory Rate: 16 Blood Pressure 135 /96 Mean: 109 Results/Orders Lab Results Laboratory Tests Test 11/07/20 00:43 Range/Units Influenza Type A (RT-PCR) Not Detected Not Detecte Influenza Type B (RT-PCR) Not Detected Not Detecte SARS-CoV-2 RNA (RT-PCR) Not Detected Not Detecte My Orders Orders - JANENE DICKEYid 19 Inhouse Test (11/07/20 00:44) Influenza A And B By Pcr (11/07/20 00:44) Vital Signs/I&O 11/07/20 01:48 Temp 36.4 Pulse 73 Resp 16 B/P (MAP) 135/96 (109) Pulse Ox 96 O2 Delivery Room Air Capillary Refill : Less Than 3 Seconds Blood Pressure Mean: 109 Departure Impression Primary Impression: Exposure to COVID-19 virus Additional Impression: Person under investigation for COVID-19 Disposition: 01 HOME, SELF-CARE Condition: Stable Departure-Patient Inst. Referrals: [facility] (PCP/Family) Primary Care Physician Patient Instructions: COVID-19 Overview, Preventing the Spread of an Infectious Disease Add. Discharge Instructions: LOTS OF CLEAR LIQUIDS TYLENOL AND MOTRIN NEEDED FOR PAIN OR FEVER OVER THE COUNTER MEDICATIONS FOR COUGH AND CONGESTION QUARANTINE YOURSELF AND ALL HOUSEHOLD MEMBERS AND CLOSE CONTACTS FOR 2 WEEKS FOLLOW UP WITH [facility] IN 3-4 DAYS IF YOU ARE STILL HAVING SYMPTOMS, YOU MAY NEED TO BE RE-TESTED FOR COVID-19 AT THAT TIME All discharge instructions reviewed with patient and/or family. Voiced understanding. JANENE DICKEY DO Nov 07, 2020 02:06
== END 2020-11-07 02:10 | disposition home or self-care (01) ==
LOC: EDUNIT# 00:14 → ER 00:16
DX: Z20.822 Contact with and (suspected) exposure to COVID-19 (principal); I50.9 Heart failure, unspecified; Z86.711 Personal history of pulmonary embolism; Z79.52 Long term (current) use of systemic steroids; Z79.01 Long term (current) use of anticoagulants
CPT/HCPCS: 87636; 99282

== ENCOUNTER 2020-12-02 12:34 | Emergency (ER) | payer MEDICAID ==
[~2020-12-02] VITALS: Ht 160 cm; Wt 108.8 kg
[2020-12-02 12:49] VITALS: BP 133/81
[2020-12-02 13:06] LABS: BILIRUBIN,URINE NEGATIVE (NEGATIVE); CLARITY,URINE CLEAR; COLOR,URINE YELLOW; GLUCOSE, URINE (UA) NEGATIVE (NEGATIVE); KETONES,URINE NEGATIVE (NEGATIVE); LEUKOCYTE ESTERASE ,URINE NEGATIVE (NEGATIVE); NITRITE,URINE NEGATIVE (NEGATIVE); PROTEIN,URINE NEGATIVE (NEGATIVE)
[2020-12-02 13:23] LABS: BACTERIA,URINE FEW /HPF
[2020-12-02] MEDS ORDERED: TRM50T PO (13:35)
[2020-12-02] MEDS ORDERED: PRD20T PO (13:35)
--- NOTE | 2020-12-02 13:35 | ED Back Pain ---
General Chief Complaint: Back Problems Stated Complaint: BACK PAIN Nursing Triage Note: PT AMB TO TRIAGE WITH COMPLAINT OF LOW BACK PAIN. STATES HAS A BULGING DISC AND HAS BEEN TAKING GABAPENTIN AND FLEXERIL. STATES PAIN HAS WORSENED TODAY ON MOVEMENT. History of Present Illness Date Seen by Provider: Dec 02, 2020 Time Seen by Provider: 12:51 Initial Comments 25-year-old female presents with low back and left hamstring pain. She states her symptoms began this morning. She worked a 14-hour shift yesterday and did a lot of lifting, twisting and turning. She has had chronic back problems but no imaging in the past. She is scheduled to start physical therapy in December at [facility]. She is on gabapentin for back pain and Flexeril, she took a Flexeril at 1130 today and Tylenol prior to arrival. She denies any bowel or bladder incontinence or retention. No previous spine surgeries. Timing/Duration: 4-6 Hours Severity: Moderate Pain/Injury Location: Back Radiation: Upper Legs (Left) Modifying Factors: Improves With Pain Medication, Improves With Rest Associated Symptoms: No muscle spasms, No fever, No weakness, No numbness in legs/feet, No tingling in legs/feet, No sensory/motor loss; lower back pain; No loss of bladder control, No loss of bowel control Allergies and Home Medications Allergies Coded Allergies: No Known Drug Allergies (Unverified , 05/24/20) Home Medications Amoxicillin/Potassium Clav 1 Each Tablet, 875 MG PO BID WITH MEALS Prescribed by: VALDEMAR BARTON on 05/24/20 1242 Benzocaine/Menthol 78 Gm Aerosol, 56 ML TP UD PRN for PAIN- SEE INSTRUCTIONS Prescribed by: VALDEMAR BARTON on 05/24/20 1242 Docusate Sodium 100 Mg Capsule, 100 MG PO BID PRN for CONSTIPATION-1ST LINE Prescribed by: VALDEMAR BARTON on 05/24/20 1242 Enoxaparin Sodium 40 Mg/0.4 Ml Syringe, 0 MG SQ Q24H Prescribed by: VALDEMAR BARTON on 05/24/20 1242 Gabapentin 100 Mg Capsule, 200 MG PO Q8H PRN for PAIN-MODERATE (5-7) Prescribed by: ANTONINA WINTER on 11/04/20 1137 Hydrocodone/Acetaminophen 1 Each Tablet, 1 TAB PO Q6H PRN for PAIN-MODERATE (5- 7) Prescribed by: ANY BUSH on 09/23/20 1036 Ibuprofen 600 Mg Tablet, 600 MG PO Q6HR Prescribed by: VALDEMAR BARTON on 05/24/20 1242 Meloxicam 7.5 Mg Tablet, 7.5 MG PO DAILY Prescribed by: CUATE VILLASENOR on 10/24/20 0049 Methylprednisolone 4 Mg Tab.ds.pk, 4 MG PO UD PER DOSE PACK INSTRUCTIONS Prescribed by: JANENE DICKEY on 08/08/20 0028 Ondansetron 4 Mg Tab.rapdis, 4 MG PO Q6H PRN for NAUSEA-1ST LINE Prescribed by: JOANNA ANNE on 10/13/20 181 Pantoprazole Sodium 40 Mg Tablet.dr, 40 MG PO DAILY Prescribed by: JANENE DICKEY on 08/08/2027 Prednisone 20 Mg Tab, 40 MG PO DAILY Prescribed by: ANTONINA WINTER on 09/06/202018 Prednisone 20 Mg Tab, 40 MG PO DAILY Prescribed by: ANTONINA WINTER on 11/04/20 1137 Tramadol HCl 50 Mg Tablet, 50 MG PO Q6H PRN for PAIN-BREAKTHROUGH Prescribed by: ALCIDES CONNELLY on 09/19/20 1215 Tramadol HCl 50 Mg Tablet, 50 MG PO Q6H PRN for PAIN Prescribed by: CUATE VILLASENOR on 10/24/20 0050 Patient Home Medication List Home Medication List Reviewed: Yes Review of Systems Constitutional: no symptoms reported, see HPI Genitourinary: see HPI, dysuria, frequency; No incontinence : No Musculoskeletal: see HPI, back pain All Other Systems Reviewed Negative Unless Noted: Yes Past Hnxqljp-Dgvged-Bphexe Hx Patient Social History Tobacco Use?: No Substance use?: No Alcohol Use?: No Pt feels they are or have been: No Seasonal Allergies Seasonal Allergies: No Past Medical History Surgeries: Yes Tubal Ligation Respiratory: Yes (P.E. 01/2020 WHILE ) Pulmonary Embolism Currently Using CPAP: No Currently Using BIPAP: No Cardiac: Yes (P.E. 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 SOCIAL HISTORY: -ETOH--REGULAR USE--FEW TIMES A WEEK/VODKA -DRUGS-+IV METH USE, THC -DENIES SMOKING Physical Exam Vital Signs Vital Signs - First Documented 12/02/20 12:49 Temp 36.9 Pulse 88 Resp 16 B/P (MAP) 133/81 (98) Pulse Ox 97 O2 Delivery Room Air Capillary Refill : Less Than 3 Seconds Height, Weight, BMI Height: '" Weight: lbs. oz. kg; 42.00 BMI Method: General Appearance: No Apparent Distress, WD/WN Neck: Full Range of Motion, Normal Inspection, Non Tender, Supple Cardiovascular: Regular Rate, Rhythm, No Edema, No Murmur, Normal Peripheral Pulses Respiratory: Chest Non Tender, Lungs Clear, Normal Breath Sounds Back: Normal Inspection, No CVA Tenderness, Decreased Range of Motion, Vertebral Tenderness (Lower lumbar), Other (Ambulates with an antalgic gait secondary to back pain. She has full power toe and heel walking. Sensation is intact L4-S1. Power V/V L4-S1. Neg SLR. ) Extremity: Normal Capillary Refill, Normal Inspection, Normal Range of Motion, Non Tender, No Calf Tenderness Neurologic/Psychiatric: Alert, Oriented x3, No Motor/Sensory Deficits, Normal Mood/Affect Skin: Normal Color, Warm/Dry Progress/Results/Core Measures Results/Orders Lab Results Laboratory Tests Test 12/02/20 12:54 Range/Units Urine Color YELLOW Urine Clarity CLEAR Urine pH 6.0 5-9 Urine Specific Murphy >=1.030 1.016-1.022 Urine Protein NEGATIVE NEGATIVE Urine Glucose (UA) NEGATIVE NEGATIVE Urine Ketones NEGATIVE NEGATIVE Urine Nitrite NEGATIVE NEGATIVE Urine Bilirubin NEGATIVE NEGATIVE Urine Urobilinogen 0.2 < = 1.0 MG/DL Urine Leukocyte Esterase NEGATIVE NEGATIVE Urine RBC (Auto) 3+ H NEGATIVE Urine RBC 5-10 H /HPF Urine WBC 5-10 H /HPF Urine Squamous Epithelial Cells 2-5 /HPF Urine Crystals NONE /LPF Urine Bacteria FEW H /HPF Urine Casts NONE /LPF Urine Mucus NEGATIVE /LPF Urine Culture Indicated YES My Orders Orders - YE JOEL Urine Bedside (12/02/20 12:39) Ultram 50 Mg Po (12/02/20 13:27) Vital Signs/I&O 12/02/20 12:49 Temp 36.9 Pulse 88 Resp 16 B/P (MAP) 133/81 (98) Pulse Ox 97 O2 Delivery Room Air Blood Pressure Mean: 98 Departure Impression Primary Impression: Lumbar radiculopathy Additional Impressions: Back pain Qualified Codes: M54.42 - Lumbago with sciatica, left side; G89.29 - Other chronic pain UTI (urinary tract infection) Qualified Codes: N30.01 - Acute cystitis with hematuria Disposition: HOME, SELF-CARE Condition: Improved Departure-Patient Inst. Decision time for Depature: 13:20 [place]: [facility] [place] [place] Primary Care Physician Patient Instructions: Low Back Pain (DC), Urinary Tract Infection, Adult (DC) Add. Discharge Instructions: Continue to use your home medications for the back pain, tramadol for extreme pain and take the steroid as prescribed. Alternate heat and ice on your low back for 20 minutes every 2 hours while awake. Gentle walking for 5 to 10 minutes every few hours, while awake. Follow-up with your primary care provider to consider an MRI. Consider additional options for physical therapy for you can start sooner. Increase water intake, 16 ounces every 2 hours while awake. Take antibiotic as prescribed for UTI. Drink 1 cup of cranberry juice or eat 1 cup of fresh blueberries daily. You may alternate between Tylenol 650 mg and ibuprofen 600 mg every 4 hours for pain and discomfort. Return to the emergency department for new, urgent healthcare needs. All discharge instructions reviewed with patient and/or family. Voiced understanding. Scripts Nitrofurantoin Macrocrystal (Nitrofurantoin) 100 Mg Capsule 100 MG PO BID, #14 CAP 0 Refills Prov: YE JOEL 12/02/20 Prednisone (Prednisone) 20 Mg Tab 40 MG PO DAILY, #6 TAB 0 Refills Prov: YE JOEL 12/02/20 Tramadol HCl (Tramadol HCl) 50 Mg Tablet 50 MG PO Q6H PRN for PAIN, #20 TAB 0 Refills Prov: YE JOEL 12/02/20 Copy Copies To 1: JOSE MOISE AMY ARNP Dec 02, 2020 13:35
[2020-12-02] MEDS ORDERED: NITR100C PO (13:39)
--- OUTSIDE RECORDS SUMMARY | 2020-12-02 15:44 | XMS REPORT | Clinical Summary ---
Author Author [facility] [place] Address Unknown Phone Unavailable Care Team Providers Care Filtrose Crusher Name Role Phone Driss Nobles MD Unavailable Unassigned, None PCP Unavailable Driss Nobles MD [phone] Allergies No known active allergies Medications No known medications Active Problems Estimated Date of Delivery Comments Yes 06/01/2020 No additional problems on file Family History Medical History Relation Name Comments Alcohol abuse Father Diabetes Maternal Grandmother Hypertension Maternal Grandmother Stroke Maternal Grandmother Diabetes Mother Hypertension Mother Stroke Mother Relation Name Status Comments Father Maternal Grandmother Mother Social History Date Tobacco Use Types Packs/Day Years Used Never Smoker Smokeless Tobacco: Never Used Comments Alcohol Use Standard Drinks/Week No 0 (1 standard drink = 0.6 o z pure alcohol) Control Partners Comments Sexually Active Male Yes Estimated Date of Delivery Comments Yes 06/01/2020 Sex Assigned at Date Recorded Not on file Last Filed Vital Signs Reading Time Taken Comments Vital Sign 133/70 04/09/2020 8:05 PM TARIFF COUNSEL Blood Pressure 117 04/09/2020 8:05 PM TARIFF COUNSEL Pulse 36.7 C (98.1 F) 04/09/2020 8:05 PM TARIFF COUNSEL Temperature 18 04/09/2020 8:05 PM TARIFF COUNSEL Respiratory Rate 99% 04/09/2020 8:05 PM TARIFF COUNSEL Oxygen Saturation - - Inhaled Oxygen Concentration 100.2 kg (221 lb) 04/09/2020 5:43 PM TARIFF COUNSEL Weight 160 cm (5' 3") 04/09/2020 5:43 PM TARIFF COUNSEL Height 39.15 04/09/2020 5:43 PM TARIFF COUNSEL Body Mass Index Plan of Treatment Health Maintenance Due Date Last Done Comments Varicella Vaccines (1 of 1994 2 - 2-dose childhood series) COVID-19 Vaccine (1) 2005 Hepatitis C Screening 2011 DTaP,Tdap,and Td Vaccines 2012 (1 - Tdap) MMR Vaccines-Adult 2012 Cervical Cancer Screening 2014 Influenza Vaccine (#1) 2020 03/30/2020, 02/21/2010 Pneumo-Vaccine: 65+Yrs (1 2058 of 1 - PPSV23) HIB Vaccines Aged Out No longer eligible based on patient's age to complete this topic IPV Vaccines Aged Out No longer eligible based on patient's age to complete this topic Meningococcal Vaccine Aged Out No longer eligib le based on patient's age to complete this topic Pneumo-Vaccine: Peds (0-5 Aged Out No longer el igible based on patient's age to Yrs) & At-Risk Patients complete this topic (6-64 Yrs) Rotavirus Vaccines Aged Out No longer eligible based on patient's age to complete this topic Results Not on filefrom Last 3 Months Insurance Type Payer Benefit Subscriber ID Effective Phone Address Plan / Dates Group AETNA GENERIC AETNA 2020 OTHER -Present KANCARE AETNA KANCARE 19 [id number] 2018-P [address] [place] [address] [address] [facility] [id number] KANCARE AETNA KANCARE 19 [id number] 2020- [address] AETNA Present [address] [address] [place], [facility] [id number] Advance Directives For more information, please contact: [phone] Patient Dinkey Dispatcher Explanation Type Date Recorded Advance Directives and Living Will Power of Photographic Spotter Care Teams Start Date End Date Filtrose Crusher Relationship Specialty 04/09/20 Unassigned, None PCP - General [place] 02/22/18 Driss Nobles MD Obstetrics/ [address] [facility] [place] [address] 04/12/20 Driss Nobles MD Performance Specialist Obstetrics/ [address] [facility] [place] [address]
== END 2020-12-02 13:55 | disposition home or self-care (01) ==
LOC: EDUNIT# 12:34 → ER 12:36
DX: M54.16 Radiculopathy, lumbar region (principal); N39.0 Urinary tract infection, site not specified; Z86.711 Personal history of pulmonary embolism; Z79.01 Long term (current) use of anticoagulants; Z79.52 Long term (current) use of systemic steroids
CPT/HCPCS: 81000; 84703; 87077; 87088; 87186; 99283

== ENCOUNTER 2020-12-05 18:07 | Emergency (ER) | payer MEDICAID ==
[~2020-12-05 18:07] MED LIST changes: +NITR100C PO
== END 2020-12-05 18:34 | disposition left against medical advice (07) ==
LOC: EDUNIT# 18:07 → ER 18:09
DX: K08.89 Other specified disorders of teeth and supporting structures (principal)
CPT/HCPCS: 99281

== ENCOUNTER 2020-12-26 15:05 | Emergency (ER) | payer MEDICAID ==
[~2020-12-26] VITALS: Ht 160 cm; Wt 108.0 kg
--- NOTE | 2020-12-26 15:40 | ED Chest Pain ---
General Chief Complaint: Chest Pain Stated Complaint: R SIDE CHEST PAIN/CARDIAC HISTORY Nursing Triage Note: PT AMB TO RM 5 PT CO OF R SIDED CHEST PAIN FOR APPROX 3 DAYS. PT RATES PAIN /10. DENIES COUGH, SOA AT THIS X Source: patient, old records History of Present Illness Date Seen by Provider: Dec 26, 2020 Time Seen by Provider: 15:15 Initial Comments PT ARRIVES VIA POV FROM WORK AT [employer] STATES SHE HAS WORKED ALL DAY TODAY, AND LEFT WORK AND STATES SHE IS GOING RIGHT BACK TO WORK TODAY SOON SHE IS DISMISSED FROM ER. STATES SHE WORKS "EVERY DAY" AND NO UNUSUAL ACTIVITY. C/O PINPOINT RIGHT UPPER CHEST PAIN--OFF AND ON FOR 3-4 DAYS, TODAY IS CONSTANT NOTHING WORSENS OR IMPROVES PAIN ,BUT HAS NOT TAKEN ANYTHING FOR PAIN PT HAS CHRONIC BACK PAIN AND TAKES FLEXERIL, GABAPENTIN AND TRAMADOL, BUT HAS NOT TAKEN ANY TRAMADOL TODAY OR ANY OTHER PAIN MEDICATIONS NO RADIATION OF PAIN NO SHORTNESS OF BREATH OR PAIN WITH BREATHING NO COUGH OR RECENT ILLNESS NO FEVER/SWEATS/CHILLS NO SWELLING IN LEGS/FEET PT HAS HISTORY OF SAME PT STATES "I'VE HAD A FEW BLOOD CLOTS IN MY LUNGS" --STATES IT WAS IN JANUARY 2020, STATES SHE HAS BEEN OFF BLOOD THINNERS SINCE MAY OF THIS YEAR. 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 WORK UP'S FOR CHEST PAIN DONE HERE HAVE ALL BEEN NEGATIVE. HER VERY FIRST VISIT HERE WAS FOR DELIVERY ON 05/24/20 MOVED HERE IN [place] FROM [place], [place] WITH HER MALE S.O. AND CHILDREN--WERE ALL HOMELESS IN [place], THEN [facility] HERE [facility] [place]. PT HAS NOT HAD COVID-19 VACCINE, HAS EXTENSIVE EXPOSURES TO COVID-19 AT THE [facility] WHERE SHE IS STAYING--NO ONE THERE WEARS MASKS OR ISOLATES/QUARANTINES, SOCIAL DISTANCES, ETC. , IN ADDITION TO WORKING AT A [employer] AND NO ONE IS REQUIRED TO WEAR A MASK THERE, WHICH SHE DOES NOT. PT CLAIMS THAT ALL HER FAMILY HAD COVID-19 IN [place] PCP: [facility] Allergies and Home Medications Allergies Coded Allergies: No Known Drug Allergies (Unverified , 05/24/20) Patient Home Medication List Home Medication List Reviewed: Yes Amoxicillin/Potassium Clav (Amox Tr-K Clv 875-125 mg Tab) 1 Each Tablet, 875 MG PO BID WITH MEALS Prescribed by: VALDEMAR BARTON on 05/24/20 1242 Benzocaine/Menthol (Dermoplast Pain Relieving [place]) 78 Gm Aerosol, 56 ML TP UD PRN for PAIN- SEE INSTRUCTIONS Prescribed by: VALDEMAR BARTON on 05/24/20 1242 Docusate Sodium (Dok) 100 Mg Capsule, 100 MG PO BID PRN for CONSTIPATION-1ST LINE Prescribed by: VALDEMAR BARTON on 05/24/20 1242 Enoxaparin Sodium (Enoxaparin Sodium) 40 Mg/0.4 Ml Syringe, 0 MG SQ Q24H Prescribed by: VALDEMAR BARTON on 05/24/20 1242 Gabapentin (Gabapentin) 100 Mg Capsule, 200 MG PO Q8H PRN for PAIN-MODERATE (5- 7) Prescribed by: ANTONINA WINTER on 11/04/20 1137 Hydrocodone/Acetaminophen (Hydrocodone-Acetamin 5-325 mg) 1 Each Tablet, 1 TAB PO Q6H PRN for PAIN-MODERATE (5-7) Prescribed by: ANY BUSH on 09/23/20 1036 Ibuprofen (Ibu) 600 Mg Tablet, 600 MG PO Q6HR Prescribed by: VALDEMAR BARTON on 05/24/20 1242 Meloxicam (Meloxicam) 7.5 Mg Tablet, 7.5 MG PO DAILY Prescribed by: CUATE VILLASENOR on 10/24/20 0049 Methylprednisolone (Medrol) 4 Mg Tab.ds.pk, 4 MG PO UD Prescribed by: JANENE DICKEY on 08/08/20 0028 Nitrofurantoin Macrocrystal (Nitrofurantoin) 100 Mg Capsule, 100 MG PO BID Prescribed by: YE JOEL on 12/02/20 1339 Ondansetron (Ondansetron Odt) 4 Mg Tab.rapdis, 4 MG PO Q6H PRN for NAUSEA-1ST LINE Prescribed by: JOANNA ANNE on 10/13/20 181 Pantoprazole Sodium (Protonix) 40 Mg Tablet.dr, 40 MG PO DAILY Prescribed by: JANENE DICKEY on 08/08/20 0028 Prednisone (Prednisone) 20 Mg Tab, 40 MG PO DAILY Prescribed by: ANTONINA WINTER on 09/06/20 2019 Prednisone (Prednisone) 20 Mg Tab, 40 MG PO DAILY Prescribed by: ANTONINA WINTER on 11/04/20 113 Prednisone (Prednisone) 20 Mg Tab, 40 MG PO DAILY Prescribed by: YE JOEL on 12/02/20 1335 Tramadol HCl (Ultram) 50 Mg Tablet, 50 MG PO Q6H PRN for PAIN-BREAKTHROUGH Prescribed by: ALCIDES CONNELLY on 09/19/20 1215 Tramadol HCl (Tramadol HCl) 50 Mg Tablet, 50 MG PO Q6H PRN for PAIN Prescribed by: CUATE VILLASENOR on 10/24/20 0050 Tramadol HCl (Tramadol HCl) 50 Mg Tablet, 50 MG PO Q6H PRN for PAIN Prescribed by: YE JOEL on 12/02/20 1336 Review of Systems Review of Systems Constitutional: no symptoms reported EENTM: No Symptoms Reported Respiratory: No Symptoms Reported Cardiovascular: See HPI, Chest Pain Gastrointestinal: No Symptoms Reported Genitourinary: No Symptoms Reported Musculoskeletal: see HPI, back pain (CHRONIC/UNCHANGED) Skin: no symptoms reported Psychiatric/Neurological: No Symptoms Reported Endocrine: No Symptoms Reported Past Btcrvaw-Qruqdn-Eepaal Hx Patient Social History Tobacco Use?: No Smoking Status: Never a Smoker Substance use?: Yes Substance type: Methamphetamine, Marijuana Additional substance use comme: LONG HX OF IV METH USE Alcohol Use?: Yes Alcohol Frequency: Daily Pt feels they are or have been: No Seasonal Allergies Seasonal Allergies: No Past Medical History Surgeries: Yes Tubal Ligation Respiratory: Yes (P.E. 01/2020 WHILE ) Pulmonary Embolism Currently Using CPAP: No Currently Using BIPAP: No Cardiac: Yes (P.E. 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) Congenital Heart Disease Neurological: No Hx : 6 Hx Para: 5 Hx Total # of Abortions (Sp): 1 (LAST CHILD GIVEN UP FOR ADOPTION DUE TO METH USE AND HOMELESSNESS) Reproductive Disorders: No PHARMACY STUDENT History: Tubal Ligation Sexually Transmitted Disease: No HIV/AIDS: No Genitourinary: No Gastrointestinal: Yes Hemorrhoids Musculoskeletal: Yes Chronic Back Pain Endocrine: Yes (OBESITY; GESTATIONAL DIABETES) HEENT: No Loss of Vision: Denies Hearing Impairment: Denies Cancer: No Psychosocial: Yes (POLYSUBSTANCE ABUSE) Anxiety, Depression Integumentary: No Blood Disorders: No Adverse Reaction/Blood Tranf: No Family Medical History Patient reports no known family medical history. SOCIAL HISTORY: -ETOH--REGULAR USE--FEW TIMES A WEEK/VODKA -DRUGS-+IV METH USE, THC -DENIES SMOKING MOVED HERE IN [place] 2020 FROM [place], [place] WITH MALE S.O. AND CHILDREN DUE TO HOMELESSNESS--STAYING AT LOCAL [facility] PT IS AB 1 PT HAD P.E. 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 ADDITIONALLY, PT HAD GESTATIONAL DIABETES Physical Exam Vital Signs Vital Signs - First Documented 12/26/20 15:12 Temp 36.7 Pulse 84 Resp 23 B/P (MAP) 141/84 (103) Pulse Ox 99 Capillary Refill : Less Than 3 Seconds Height, Weight, BMI Height: '" Weight: lbs. oz. kg; 42.00 BMI Method: General Appearance: No Apparent Distress, WD/WN, Obese, Other (NON-CHALANT, DOES NOT APPEAR TO BE IN ANY DISCOMFORT OR DISTRESS, DOES NOT APPEAR TO BE ILL) Neck: Normal Inspection Respiratory: Chest Non Tender (PIN POINT AREA OF PAIN IS NON-TENDER TO PALPATION OR MOVEMENT OR BREATHING), Normal Breath Sounds, No Accessory Muscle Use, No Respiratory Distress Cardiovascular: Regular Rate, Rhythm, No Edema, No JVD, No Murmur, Normal Peripheral Pulses Gastrointestinal: Non Tender, Soft Extremity: Normal Inspection, Normal Range of Motion, Non Tender, No Calf Tenderness, No Pedal Edema Neurologic/Psychiatric: Alert, Oriented x3, No Motor/Sensory Deficits, Normal 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, 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 Norm as Tested Skin: Normal Color, Warm/Dry; No Rash; Tattoos/Piercings (MULTIPLE TATTOOS) Progress/Results/Core Measures Results/Orders Lab Results Laboratory Tests Test 12/26/20 15:35 12/26/20 15:39 12/26/20 16:33 Range/Units White Blood Count 7.6 4.3-11.0 10^3/uL Red Blood Count 4.34 3.80-5.11 10^6/uL Hemoglobin 11.6 11.5-16.0 g/dL Hematocrit 36 35-52 % Mean Corpuscular Volume 83 80-99 fL Mean Corpuscular Hemoglobin 27 25-34 pg Mean Corpuscular Hemoglobin Concent 32 32-36 g/dL Red Cell Distribution Width 13.9 10.0-14.5 % Platelet Count 299 130-400 10^3/uL Mean Platelet Volume 10.7 9.0-12.2 fL Immature Granulocyte % (Auto) 0 % Neutrophils (%) (Auto) 50 42-75 % Lymphocytes (%) (Auto) 31 12-44 % Monocytes (%) (Auto) 7 0-12 % Eosinophils (%) (Auto) 11 H 0-10 % Basophils (%) (Auto) 1 0-10 % Neutrophils # (Auto) 3.8 1.8-7.8 10^3/uL Lymphocytes # (Auto) 2.4 1.0-4.0 10^3/uL Monocytes # (Auto) 0.5 0.0-1.0 10^3/uL Eosinophils # (Auto) 0.9 H 0.0-0.3 10^3/uL Basophils # (Auto) 0.1 0.0-0.1 10^3/uL Immature Granulocyte # (Auto) 0.0 0.0-0.1 10^3/uL Erythrocyte Sedimentation Rate 31 H 0-20 MM/HR Prothrombin Time 12.7 12.2-14.7 SEC INR Comment 0.9 0.8-1.4 Activated Partial Thromboplast Time 27 24-35 SEC D-Dimer 0.28 0.00-0.49 UG/ML Sodium Level 138 135-145 MMOL/L Potassium Level 3.8 3.6-5.0 MMOL/L Chloride Level 104 98-107 MMOL/L Carbon Dioxide Level 22 21-32 MMOL/L Anion Gap 12 5-14 MMOL/L Blood Urea Nitrogen 16 7-18 MG/DL Creatinine 0.72 0.60-1.30 MG/DL Estimat Glomerular Filtration Rate 97 BUN/Creatinine Ratio 22 Glucose Level 113 H 70-105 MG/DL Calcium Level 9.3 8.5-10.1 MG/DL Corrected Calcium 9.3 8.5-10.1 MG/DL Magnesium Level 1.7 1.6-2.4 MG/DL Total Bilirubin 0.3 0.1-1.0 MG/DL Aspartate Amino Transf (AST/SGOT) 23 5-34 U/L Alanine Aminotransferase (ALT/SGPT) 27 0-55 U/L Alkaline Phosphatase 54 40-136 U/L Lactate Dehydrogenase 190 125-220 U/L Total Creatine Kinase 75 29-168 U/L Creatine Kinase MB 0.9 <6.6 NG/ML Myoglobin 18.7 10.0-92.0 NG/ML Troponin I < 0.028 <0.028 NG/ML C-Reactive Protein High Sensitivity 0.36 0.00-0.50 MG/DL B-Type Natriuretic Peptide 52.2 <100.0 PG/ML Total Protein 7.2 6.4-8.2 GM/DL Albumin 4.0 3.2-4.5 GM/DL Procalcitonin 0.01 <0.10 NG/ML Serum Test, Qualitative NEGATIVE NEGATIVE Serum Alcohol < 10 <10 MG/DL SARS-CoV-2 RNA (RT-PCR) Not Detected Not Detecte Urine Color YELLOW Urine Clarity SL CLOUDY Urine pH 6.0 5-9 Urine Specific [place] 1.025 H 1.016-1.022 Urine Protein NEGATIVE NEGATIVE Urine Glucose (UA) NEGATIVE NEGATIVE Urine Ketones NEGATIVE NEGATIVE Urine Nitrite NEGATIVE NEGATIVE Urine Bilirubin NEGATIVE NEGATIVE Urine Urobilinogen 0.2 < = 1.0 MG/DL Urine Leukocyte Esterase NEGATIVE NEGATIVE Urine RBC (Auto) NEGATIVE NEGATIVE Urine RBC 2-5 H /HPF Urine WBC 2-5 /HPF Urine Squamous Epithelial Cells >50 H /HPF Urine Crystals NONE /LPF Urine Bacteria MODERATE H /HPF Urine Casts NONE /LPF Urine Mucus NEGATIVE /LPF Urine Culture Indicated NO Urine Opiates Screen NEGATIVE NEGATIVE Urine Oxycodone Screen NEGATIVE NEGATIVE Urine Methadone Screen NEGATIVE NEGATIVE Urine Propoxyphene Screen NEGATIVE NEGATIVE Urine Barbiturates Screen NEGATIVE NEGATIVE Ur Tricyclic Antidepressants Screen NEGATIVE NEGATIVE Urine Phencyclidine Screen NEGATIVE NEGATIVE Urine Amphetamines Screen NEGATIVE NEGATIVE Urine Methamphetamines Screen NEGATIVE NEGATIVE Urine Benzodiazepines Screen NEGATIVE NEGATIVE Urine Cocaine Screen NEGATIVE NEGATIVE Urine Cannabinoids Screen NEGATIVE NEGATIVE My Orders Orders - JANENE DICKEY DO Ekg Tracing (12/26/20 15:18) Monitor-Rhythm Ecg Trace Only (12/26/20 15:18) Ed Iv/Invasive Line Start (12/26/20 15:31) Chest 1 View, Ap/Pa Only (12/26/20 15:31) Alcohol (12/26/20 15:31) BNP (12/26/20 15:31) Cbc With Automated Diff (12/26/20 15:31) Comprehensive Metabolic Panel (12/26/20 15:) Creatine Kinase (12/26/20 15:31) Creatine Kinase Mb (12/26/20 15:31) Hs C Reactive Protein (12/26/20 15:31) Fibrin Degradation Products (12/26/20 15:31) Drug Screen Stat (Urine) (12/26/20 15:31) Hcg,Qualitative Serum (12/26/20 15:31) Magnesium (12/26/20 15:31) Protime With Inr (12/26/20 15:31) Partial Thromboplastin Time (12/26/20 15:31) Ua Culture If Indicated (12/26/20 15:31) Erythrocyte Sedimentation Rate (12/26/20 15:31) Myoglobin Serum (12/26/20 15:31) Troponin I (12/26/20 15:31) Procalcitonin (Pct) (12/26/20 15:31) LDH (12/26/20 15:31) Covid 19 Inhouse Test (12/26/20 15:31) Aspirin Chewable Tablet (Baby Aspirin Ch (12/26/20 15:45) Isolation Central Supply Req (12/26/20 15:31) Medications Given in ED Current Medications Medications Dose Ordered Sig/Lakisha Route Start Time Stop Time Status Last Admin Dose Admin Aspirin 324 mg ONCE ONCE PO 12/26/20 15:45 12/26/20 15:46 DC 12/26/20 15:42 324 MG Vital Signs/I&O 12/26/20 15:12 Temp 36.7 Pulse 84 Resp 23 B/P (MAP) 141/84 (103) Pulse Ox 99 Blood Pressure Mean: 103 Progress Progress Note : Progress Note UNEVENTFUL ER STAY PAIN RESOLVED SHORTLY AFTER ARRIVAL, AND PT STATES SHE FEELS FINE NOW. Initial ECG Impression Date: Dec 26, 2020 Initial ECG Impression Time: 15:13 Initial ECG Rate: 95 Initial ECG Rhythm: Normal Sinus Diagnostic Imaging Comments CXR--PER RADIOLOGIST REPORT AT 1707 FINDINGS: The cardiac silhouette is within normal limits in size. No significant pulmonary vascular congestion. The lungs are clear of focal pulmonary opacity. No pleural effusion. No pneumothorax. No acute osseous abnormality. IMPRESSION: Similar-appearing examination without acute cardiopulmonary abnormality. Reviewed: Reviewed by Me Departure Impression Primary Impression: RIGHT UPPER CHEST WALL PAIN Disposition: HOME, SELF-CARE Condition: Improved Departure-Patient Inst. Decision time for Depature: 17:29 Referrals: [facility] (PCP/Family) Primary Care Physician Patient Instructions: Chest Pain That Is Not Caused by the Heart (DC) Add. Discharge Instructions: TYLENOL AND MOTRIN NEEDED FOR PAIN ALTERNATE ICE AND HEAT TO AREA AT 20 MINUTE INTERVALS OVER THE COUNTER LIDOCAINE PATCH TO AREA NEEDED FOR PAIN FOLLOW UP WITH [facility] SCHEDULED, RETURN TO ER IF SYMPTOMS WORSEN All discharge instructions reviewed with patient and/or family. Voiced understanding. Images Torso/Trunk 1 - Other-See Progress Note JANENE DICKEY DO Dec 26, 2020 15:40
[2020-12-26 15:43] LABS: BASOPHILS # (AUTO) 0.1 10^3/uL (0.0-0.1); BASOPHILS % (AUTO) 1 % (0-10); EOSINOPHILS # (AUTO) 0.9 10^3/uL (0.0-0.3); EOSINOPHILS % (AUTO) 11 % (0-10); HEMATOCRIT 36 % (35-52); HEMOGLOBIN 11.6 g/dL (11.5-16.0); LYMPHOCYTES # (AUTO) 2.4 10^3/uL (1.0-4.0); LYMPHOCYTES % (AUTO) 31 % (12-44); MEAN CORPUSCULAR HEMOGLOBIN 27 pg (25-34); MEAN CORPUSCULAR HGB CONC 32 g/dL (32-36); MEAN CORPUSCULAR VOLUME 83 fL (80-99); MEAN PLATELET VOLUME 10.7 fL (9.0-12.2); MONOCYTES # (AUTO) 0.5 10^3/uL (0.0-1.0); MONOCYTES % (AUTO) 7 % (0-12); NEUTROPHILS # (AUTO) 3.8 10^3/uL (1.8-7.8); NEUTROPHILS % (AUTO) 50 % (42-75); PLATELET COUNT 299 10^3/uL (130-400); WHITE BLOOD COUNT 7.6 10^3/uL (4.3-11.0)
[2020-12-26] MEDS ORDERED: ASPIRIN 81 MG CHEW (CHILDREN'S ASA) PO ONE (15:45)
[2020-12-26 15:54] LABS: CHLORIDE 104 MMOL/L (98-107); POTASSIUM 3.8 MMOL/L (3.6-5.0); SODIUM 138 MMOL/L (135-145)
[2020-12-26 15:55] LABS: CALCIUM 9.3 MG/DL (8.5-10.1)
[2020-12-26 15:57] LABS: TOTAL PROTEIN 7.2 GM/DL (6.4-8.2)
[2020-12-26 15:58] LABS: BILIRUBIN,TOTAL 0.3 MG/DL (0.1-1.0); CARBON DIOXIDE 22 MMOL/L (21-32)
[2020-12-26 16:00] LABS: ALKALINE PHOSPHATASE 54 U/L (40-136); CREATININE SERUM 0.72 MG/DL (0.60-1.30); GFR ESTIMATED 97
[2020-12-26 16:01] LABS: BUN/CREATININE RATIO 22
[2020-12-26 16:03] LABS: ALANINE AMINOTRANSFERASE 27 U/L (0-55); ERYTHROCYTE SEDIMENTATION RATE 31 MM/HR (0-20)
[2020-12-26 16:04] LABS: CREATINE KINASE 75 U/L (29-168); MAGNESIUM 1.7 MG/DL (1.6-2.4)
[2020-12-26 16:06] LABS: GLUCOSE 113 MG/DL (70-105)
[2020-12-26 16:10] LABS: FIBRIN DEGRADATION PRODUCTS 0.28 UG/ML (0.00-0.49); INR 0.9 (0.8-1.4); PROTHROMBIN TIME PATIENT 12.7 SEC (12.2-14.7)
[2020-12-26 16:12] LABS: CREATINE KINASE MB 0.9 NG/ML (<6.6)
[2020-12-26 16:39] LABS: BILIRUBIN,URINE NEGATIVE (NEGATIVE); CLARITY,URINE SL CLOUDY; COLOR,URINE YELLOW; GLUCOSE, URINE (UA) NEGATIVE (NEGATIVE); KETONES,URINE NEGATIVE (NEGATIVE); LEUKOCYTE ESTERASE ,URINE NEGATIVE (NEGATIVE); NITRITE,URINE NEGATIVE (NEGATIVE); PROTEIN,URINE NEGATIVE (NEGATIVE)
[2020-12-26 16:49] LABS: BACTERIA,URINE MODERATE /HPF; SQUAMOUS EPITHELIAL CELL,UR >50 /HPF
[2020-12-26 16:53] LABS: AMPHETAMINE SCREEN, URINE NEGATIVE (NEGATIVE); BARBITURATE SCREEN URINE NEGATIVE (NEGATIVE); BENZODIAZEPINES SCREEN URINE NEGATIVE (NEGATIVE); CANNABINOID SCREEN, URINE NEGATIVE (NEGATIVE); COCAINE SCREEN URINE NEGATIVE (NEGATIVE); METHADONE STAT NEGATIVE (NEGATIVE); METHAMPHETAMINE SCREEN URINE S NEGATIVE (NEGATIVE); OPIATE SCREEN URINE NEGATIVE (NEGATIVE); OXYCODONE STAT NEGATIVE (NEGATIVE); PROPOXYPHENE STAT NEGATIVE (NEGATIVE); TRICYCLIC ANTIDEPRESSANTS SCRE NEGATIVE (NEGATIVE)
--- NOTE | 2020-12-26 17:06 | Diagnostic Imaging Report ---
INDICATION: Chest pain. COMPARISON: 08/08/2020. TECHNIQUE: Single radiograph of the chest dated December 26, 2020. FINDINGS: The cardiac silhouette is within normal limits in size. No significant pulmonary vascular congestion. The lungs are clear of focal pulmonary opacity. No pleural effusion. No pneumothorax. No acute osseous abnormality. IMPRESSION: Similar-appearing examination without acute cardiopulmonary abnormality. Dictated by: Dictated on workstation # [id number]
[2020-12-26 17:44] VITALS: BP 101/45
== END 2020-12-26 17:43 | disposition home or self-care (01) ==
LOC: EDUNIT# 15:05 → ER 15:08
DX: R07.89 Other chest pain (principal); E66.9 Obesity, unspecified; G89.29 Other chronic pain; M54.9 Dorsalgia, unspecified; Z68.41 Body mass index [BMI] 40.0-44.9, adult; Z86.711 Personal history of pulmonary embolism; Z20.822 Contact with and (suspected) exposure to COVID-19; Z79.891 Long term (current) use of opiate analgesic; Z79.01 Long term (current) use of anticoagulants; Z79.52 Long term (current) use of systemic steroids; Z79.899 Other long term (current) drug therapy
CPT/HCPCS: 36415; 71045; 80053; 80306; 80320; 81000; 82550; 82553; 83615; 83735; 83874; 83880; 84145; 84484; 84703; 85025; 85379; 85610; 85652; 85730; 86141; 87636; 93005; 93041

== ENCOUNTER 2020-12-29 15:57 | Emergency (ER) | payer MEDICAID ==
[~2020-12-29] VITALS: Ht 62 cm; Wt 108.8 kg
[2020-12-29] MEDS ORDERED: NAPR-1071 PO (16:54)
[2020-12-29] MEDS ORDERED: TRAM-42 PO (16:54)
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
[2020-12-29] MEDS ORDERED: KETOROLAC 60 MG/2 ML VIAL IM ONE (17:00)
[2020-12-29] MEDS ORDERED: ORPHENADRINE 60 MG/2 ML (NORFLEX) AMP (ED ONLY) IM ONE (17:00)
[2020-12-29 17:20] VITALS: BP 136/78
== END 2020-12-29 17:20 | disposition home or self-care (01) ==
LOC: EDUNIT# 15:57 → ER 15:59
DX: G89.29 Other chronic pain (principal); M54.6 Pain in thoracic spine; I50.9 Heart failure, unspecified; Z86.711 Personal history of pulmonary embolism; Z79.01 Long term (current) use of anticoagulants; Z79.52 Long term (current) use of systemic steroids; Z79.891 Long term (current) use of opiate analgesic; Z79.899 Other long term (current) drug therapy
CPT/HCPCS: 99284

== ENCOUNTER 2021-01-29 10:16 | Emergency (ER) | payer MEDICAID ==
[~2021-01-29] VITALS: Ht 160 cm; Wt 113.4 kg
[~2021-01-29 10:16] MED LIST changes: -DCS100C PO; +DOCU-239 PO; +NAPR-1071 PO
[2021-01-29 10:28] VITALS: BP 120/84
[2021-01-29] MEDS ORDERED: TRAM-42 PO (11:08)
--- NOTE | 2021-01-29 11:09 | ED Lower Extremity ---
General Chief Complaint: Lower Extremity Stated Complaint: L LEG PAIN Nursing Triage Note: PT TO FT 1 W REPORTS OF RIGHT LEG SWELLING/PAIN AND BACK PAIN. PT [id number]. Source: patient Exam Limitations: no limitations (ANTONINA WINTER APRN) History of Present Illness Date Seen by Provider: Jan 29, 2021 Time Seen by Provider: 11:06 Initial Comments To ER with right posterior knee and calf pain and swelling. She also has some midline low back pain. Onset: yesterday Severity: moderate Pain/Injury Location: right leg Method of Injury: unknown (ANTONINA WINTER APRN) Allergies and Home Medications Allergies Coded Allergies: No Known Drug Allergies (Unverified , 05/24/20) Patient Home Medication List Home Medication List Reviewed: Yes (ANTONINA WINTER APRN) Amoxicillin/Potassium Clav (Amox Tr-K Clv 875-125 mg Tab) 1 Each Tablet, 875 MG PO BID WITH MEALS Prescribed by: VALDEMAR BARTON on 05/24/20 1242 Benzocaine/Menthol (Dermoplast Pain Relieving Lavina) 78 Gm Aerosol, 56 ML TP UD PRN for PAIN- SEE INSTRUCTIONS Prescribed by: VALDEMAR BARTON on 05/24/20 1242 Diclofenac Sodium (Voltaren Arthritis Pain) 20 Gm Gel..gram., 1 GM TP TID Prescribed by: ANTONINA WINTER on 01/29/21 1211 Docusate Sodium (Dok) 100 Mg Capsule, 100 MG PO BID PRN for CONSTIPATION-1ST LINE Prescribed by: VALDEMAR BARTON on 05/24/20 1242 Enoxaparin Sodium (Enoxaparin Sodium) 40 Mg/0.4 Ml Syringe, 0 MG SQ Q24H Prescribed by: VALDEMAR BARTON on 05/24/20 1242 Gabapentin (Gabapentin) 100 Mg Capsule, 200 MG PO Q8H PRN for PAIN-MODERATE (5- 7) Prescribed by: ANTONINA WINTER on 11/04/20 1137 Hydrocodone/Acetaminophen (Hydrocodone-Acetamin 5-325 mg) 1 Each Tablet, 1 TAB PO Q6H PRN for PAIN-MODERATE (5-7) Prescribed by: ANY BUSH on 09/23/20 1036 Ibuprofen (Ibu) 600 Mg Tablet, 600 MG PO Q6HR Prescribed by: VALDEMAR BARTON on 05/24/20 1242 Meloxicam (Meloxicam) 7.5 Mg Tablet, 7.5 MG PO DAILY Prescribed by: CUATE VILLASENOR on 10/24/20 0049 Methylprednisolone (Medrol) 4 Mg Tab.ds.pk, 4 MG PO UD Prescribed by: JANENE DICKEY on 08/08/20 0028 Naproxen (Naprosyn) 500 Mg Tablet, 500 MG PO BID PRN for PAIN-MODERATE (5-7) Prescribed by: ANTONINA WINTER on 12/29/20 165 Nitrofurantoin Macrocrystal (Nitrofurantoin) 100 Mg Capsule, 100 MG PO BID Prescribed by: YE JOEL on 12/02/20 1339 Ondansetron (Ondansetron Odt) 4 Mg Tab.rapdis, 4 MG PO Q6H PRN for NAUSEA-1ST LINE Prescribed by: JOANNA ANNE on 10/13/20 181 Pantoprazole Sodium (Protonix) 40 Mg Tablet.dr, 40 MG PO DAILY Prescribed by: JANENE DICKEY on 08/08/208 Prednisone (Prednisone) 20 Mg Tab, 40 MG PO DAILY Prescribed by: ANTONINA WINTER on 09/06/20 2019 Prednisone (Prednisone) 20 Mg Tab, 40 MG PO DAILY Prescribed by: ANTONINA WINTER on 11/04/20 1137 Prednisone (Prednisone) 20 Mg Tab, 40 MG PO DAILY Prescribed by: YE JOEL on 12/02/20 1335 Tramadol HCl (Ultram) 50 Mg Tablet, 50 MG PO Q6H PRN for PAIN-BREAKTHROUGH Prescribed by: ALCIDES CONNELLY on 09/19/20 1215 Tramadol HCl (Tramadol HCl) 50 Mg Tablet, 50 MG PO Q6H PRN for PAIN Prescribed by: CUATE VILLASENOR on 10/24/20 0050 Tramadol HCl (Tramadol HCl) 50 Mg Tablet, 50 MG PO Q6H PRN for PAIN Prescribed by: YE JOEL on 12/02/20 1336 Tramadol HCl (Ultram) 50 Mg Tablet, 50 MG PO Q6H PRN for PAIN-MODERATE (5-7) Prescribed by: ANTONINA WINTER on 12/29/20 1654 Tramadol HCl (Ultram) 50 Mg Tablet, 50 MG PO Q6H PRN for PAIN-MODERATE (5-7) Prescribed by: ANTONINA WINTER on 01/29/21 1108 Review of Systems Constitutional: see HPI EENTM: see HPI Respiratory: no symptoms reported Cardiovascular: no symptoms reported Genitourinary: no symptoms reported Musculoskeletal: see HPI Skin: no symptoms reported Psychiatric/Neurological: No Symptoms Reported (ANTONINA WINTER APRN) Past Yldrjxj-Wcunbs-Lddjld Hx Patient Social History Tobacco Use?: No Use of E-Cig and/or Vaping dev: No Substance use?: No Alcohol Use?: Yes Alcohol Frequency: Several times a month (ANTONINA WINTER APRN) Seasonal Allergies Seasonal Allergies: No (ANTONINA WINTER APRN) Past Medical History Surgery/Hospitalization HX: SX: REMOVAL OF EXTRA THUMB PMH: BULGING DISC LOWER BACK Surgeries: Yes Tubal Ligation Respiratory: Yes (P.E. 01/2020 WHILE ) Pulmonary Embolism Currently Using CPAP: No Currently Using BIPAP: No Cardiac: Yes (P.E. 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 SOCIAL HISTORY: -ETOH--REGULAR USE--FEW TIMES A WEEK/VODKA -DRUGS-+IV METH USE, THC -DENIES SMOKING MOVED HERE IN APRIL 2020 FROM [place], [place] WITH MALE S.O. AND CHILDREN DUE TO HOMELESSNESS--STAYING AT LOCAL [facility] FOR HOMELESS PEOPLE PT IS AB 1 PT HAD P.E. 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 ADDITIONALLY, PT HAD GESTATIONAL DIABETES (ANTONINA WINTER APRN) Physical Exam Vital Signs Vital Signs - First Documented 01/29/21 10:28 Temp 36.3 Pulse 84 Resp 20 B/P (MAP) 120/84 (96) Pulse Ox 97 O2 Delivery Room Air (ALCIDES RADFORD MD) Vital Signs Capillary Refill : Less Than 3 Seconds (ANTONINA WINTER APRN) Height, Weight, BMI Height: '" Weight: lbs. oz. kg; 44.00 BMI Method: General Appearance: WD/WN, no apparent distress Neck: non-tender, full range of motion Respiratory: no respiratory distress, no accessory muscle use Gastrointestinal: normal bowel sounds, non tender, soft Hips: bilateral hip non-tender, bilateral hip normal inspection, bilateral hip normal range of motion Legs: bilateral leg non-tender, bilateral leg normal inspection, bilateral leg normal range of motion Knees: bilateral knee non-tender, bilateral knee normal inspection, bilateral knee normal range of motion Ankles: bilateral ankle non-tender, bilateral ankle normal inspection, bilateral ankle normal range of motion Feet: bilateral foot non-tender, bilateral foot normal inspection, bilateral foot normal range of motion Neurologic/Psychiatric: alert, normal mood/affect, oriented x 3 Skin: normal color, warm/dry (ANTONINA WINTER APRN) Progress/Results/Core Measures Results/Orders Vital Signs/I&O 01/29/21 10:28 Temp 36.3 Pulse 84 Resp 20 B/P (MAP) 120/84 (96) Pulse Ox 97 O2 Delivery Room Air (ALCIDES RADFORD MD) Blood Pressure Mean: 96 Departure Communication (Admissions) Patient states that she has been applying some of her friends topical diclofenac gel to the knee and it has helped quite a bit. She would like some of that sent in as well. (ANTONINA WINTER APRN) Impression Primary Impression: Lumbar radiculopathy Additional Impression: Internal derangement of knee Disposition: 01 HOME, SELF-CARE Condition: Stable Departure-Patient Inst. Decision time for Depature: 11:07 (ANTONINA WINTER APRN) Referrals: [facility] (PCP) Primary Care Physician LOU SERVIN APRN (Family) Primary Care Physician Patient Instructions: NO INSTRUCTIONS GIVEN Add. Discharge Instructions: All discharge instructions reviewed with patient and/or family. Voiced understanding. Scripts Diclofenac Sodium (Voltaren Arthritis Pain) 20 Gm Gel..gram. 1 GM TP TID, #1 EA Prov: ANTONINA WINTER APRN 01/29/21 Tramadol HCl (Ultram) 50 Mg Tablet 50 MG PO Q6H PRN for PAIN-MODERATE (5-7), #14 TAB Prov: ANTONINA WINTER APRN 01/29/21 Work/School Note: Local Medical Staff Listing ATTENDING PHYSICIAN NOTE: I was physically present as attending physician in the emergency department during the care of this patient, but I was not directly involved in the decision making or delivery of care for this patient. (ALCIDES RADFORD MD) ANTONINA WINTER APRN Jan 29, 2021 11:09 ALCIDES RADFORD MD Jan 30, 2021 06:28
--- NOTE | 2021-01-29 12:06 | Diagnostic Imaging Report ---
PROCEDURE: US right lower extremity venous. TECHNIQUE: Multiple real-time grayscale images were obtained over the right lower extremity in various projections. Additional spectral analysis and color Doppler duplex images were also obtained. Date: January 29, 2021. Indication: 25-year-old female, right lower extremity pain and swelling. Comparison: None. Findings: The right common femoral vein, right superficial femoral vein, and right popliteal vein are patent. The visualized portions of the right greater saphenous and deep femoral veins are patent. The right posterior tibial and peroneal veins are patent. Impression: 1. Negative for right lower extremity deep venous thrombosis. Dictated by: Dictated on workstation # [id number]
[2021-01-29] MEDS ORDERED: DICL20GE TP (12:11)
== END 2021-01-29 12:07 | disposition home or self-care (01) ==
LOC: EDUNIT# 10:16 → ER 10:18
DX: M54.16 Radiculopathy, lumbar region (principal); M23.91 Unspecified internal derangement of right knee; G89.29 Other chronic pain; M54.9 Dorsalgia, unspecified; E66.9 Obesity, unspecified; Z86.711 Personal history of pulmonary embolism; Z68.41 Body mass index [BMI] 40.0-44.9, adult; Z79.01 Long term (current) use of anticoagulants; Z79.52 Long term (current) use of systemic steroids; Z79.891 Long term (current) use of opiate analgesic

== ENCOUNTER 2021-03-08 12:46 | Emergency (ER) | payer MEDICAID ==
[~2021-03-08] VITALS: Ht 63 cm; Wt 113.4 kg
[~2021-03-08 12:46] MED LIST changes: +DICL20GE TP
--- OUTSIDE RECORDS SUMMARY | 2021-03-08 12:54 | XMS REPORT | Clinical Summary ---
Author Author [facility] Address Unknown Phone Unavailable Care Team Providers Care Electrochemist Name Role Phone Driss Nobles MD Unavailable Unassigned, None PCP Unavailable Driss Nobles MD [phone] Allergies No known active allergies Medications No [...] Comments Vital Sign 133/70 04/09/2020 8:05 PM BRASS INSTRUMENT REPAIR TECHNICIAN Blood Pressure 117 04/09/2020 8:05 PM BRASS INSTRUMENT REPAIR TECHNICIAN Pulse 36.7 C (98.1 F) 04/09/2020 8:05 PM BRASS INSTRUMENT REPAIR TECHNICIAN Temperature 18 04/09/2020 8:05 PM BRASS INSTRUMENT REPAIR TECHNICIAN Respiratory Rate 99% 04/09/2020 8:05 PM BRASS INSTRUMENT REPAIR TECHNICIAN Oxygen Saturation - - Inhaled Oxygen Concentration 100.2 kg (221 lb) 04/09/2020 5:43 PM BRASS INSTRUMENT REPAIR TECHNICIAN Weight 160 cm (5' 3") 04/09/2020 5:43 PM BRASS INSTRUMENT REPAIR TECHNICIAN Height 39.15 04/09/2020 5:43 PM BRASS INSTRUMENT REPAIR TECHNICIAN Body Mass Index Plan of Treatment Health Maintenance Due Date Last Done Comments Varicella Vaccines (1 of 1994 2 - 2-dose childhood series) COVID-19 Vaccine (1) 1998 Hepatitis C Screening 2011 DTaP,Tdap,and Td Vaccines [...] 2020 OTHER -Present KANCARE AET[employer] KANCARE 19 [id number] 2018-P [address] [id number] [facility] [phone] KANCARE AETNA KANCARE 19 [id number] 2020- [address] Present [id number] [facility] [place] [address] Advance Directives For more information, please contact: [phone] 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
[2021-03-08 13:40] VITALS: BP 123/80
--- NOTE | 2021-03-08 14:20 | ED Back Pain ---
General Chief Complaint: Back Problems Stated Complaint: LEFT LOWER MID BACK PAIN Nursing Triage Note: Pt arrives via POV from home with c/o left sided flank pain; onset this AM. Pt reports she woke up with the pain, but it worsened while attempting to lift a tray at work. Pt denies changes in urination; denies hx of kidney stones. Source of Information: Patient Exam Limitations: No Limitations (ANTONINA WINTER APRN) History of Present Illness Date Seen by Provider: Mar 08, 2021 Time Seen by Provider: 14:18 Initial Comments To ER with reports of left-sided thoracic back pain worsened by movement. No urinary symptoms no fever no chills no cough no shortness of breath. Location: Other Timing/Duration: 1-3 Hours Pain/Injury Location: Abdomen Method of Injury: Unknown Associated Symptoms: other (ANTONINA WINTER APRN) Allergies and Home Medications Allergies Coded Allergies: No Known Drug Allergies (Unverified , 05/24/20) Patient Home Medication List Home Medication List Reviewed: Yes (ANTONINA WINTER APRN) Amoxicillin/Potassium Clav (Amox Tr-K Clv 875-125 mg Tab) 1 Each Tablet, 875 MG PO BID WITH MEALS Prescribed by: VALDEMAR BARTON on 05/24/20 1242 Benzocaine/Menthol (Dermoplast Pain Relieving Kirkpatrick) 78 Gm Aerosol, 56 ML TP UD PRN for PAIN- SEE INSTRUCTIONS Prescribed by: VALDEMAR BARTON on 05/24/20 1242 Diclofenac Sodium (Voltaren Arthritis Pain) 20 Gm Gel..gram., 1 GM TP TID Prescribed by: ANTONINA WINTER on 01/29/21 1211 Docusate Sodium (Dok) 100 Mg Capsule, 100 MG PO BID PRN for CONSTIPATION-1ST LINE Prescribed by: VALDEMAR BARTON on 05/24/20 1242 Enoxaparin Sodium (Enoxaparin Sodium) 40 Mg/0.4 Ml Syringe, 0 MG SQ Q24H Prescribed by: VALDEMAR BARTON on 05/24/20 1242 Gabapentin (Gabapentin) 100 Mg Capsule, 200 MG PO Q8H PRN for PAIN-MODERATE (5- 7) Prescribed by: ANTONINA WINTER on 11/04/20 1137 Hydrocodone/Acetaminophen (Hydrocodone-Acetamin 5-325 mg) 1 Each Tablet, 1 TAB PO Q6H PRN for PAIN-MODERATE (5-7) Prescribed by: ANY BUSH on 09/23/20 1036 Ibuprofen (Ibu) 600 Mg Tablet, 600 MG PO Q6HR Prescribed by: VALDEMAR BARTON on 05/24/20 1242 Meloxicam (Meloxicam) 7.5 Mg Tablet, 7.5 MG PO DAILY Prescribed by: CUATE VILLASENOR on 10/24/20 0049 Methylprednisolone (Medrol) 4 Mg Tab.ds.pk, 4 MG PO UD Prescribed by: JANENE DICKEY on 08/08/20 0028 Naproxen (Naprosyn) 500 Mg Tablet, 500 MG PO BID PRN for PAIN-MODERATE (5-7) Prescribed by: ANTONINA WINTER on 12/29/20 1654 Nitrofurantoin Macrocrystal (Nitrofurantoin) 100 Mg Capsule, 100 MG PO BID Prescribed by: YE JOEL on 12/02/20 1339 Ondansetron (Ondansetron Odt) 4 Mg Tab.rapdis, 4 MG PO Q6H PRN for NAUSEA-1ST LINE Prescribed by: JOANNA ANNE on 10/13/20 1815 Pantoprazole Sodium (Protonix) 40 Mg Tablet.dr, 40 MG PO DAILY Prescribed by: JANENE DICKEY on 08/08/20 0028 Prednisone (Prednisone) 20 Mg Tab, 40 MG PO DAILY Prescribed by: ANTONINA WINTER on 09/06/20 2019 Prednisone (Prednisone) 20 Mg Tab, 40 MG PO DAILY Prescribed by: ANTONINA WINTER on 11/04/20 1137 Prednisone (Prednisone) 20 Mg Tab, 40 MG PO DAILY Prescribed by: YE JOEL on 12/02/20 1335 Tramadol HCl (Ultram) 50 Mg Tablet, 50 MG PO Q6H PRN for PAIN-BREAKTHROUGH Prescribed by: ALCIDSE CONNELLY on 09/19/20 1215 Tramadol HCl (Tramadol HCl) 50 Mg Tablet, 50 MG PO Q6H PRN for PAIN Prescribed by: CUATE VILLASENOR on 10/24/20 0050 Tramadol HCl (Tramadol HCl) 50 Mg Tablet, 50 MG PO Q6H PRN for PAIN Prescribed by: YE JOEL on 12/02/20 1336 Tramadol HCl (Ultram) 50 Mg Tablet, 50 MG PO Q6H PRN for PAIN-MODERATE (5-7) Prescribed by: ANTONINA WINTER on 12/29/20 1654 Tramadol HCl (Ultram) 50 Mg Tablet, 50 MG PO Q6H PRN for PAIN-MODERATE (5-7) Prescribed by: ANTONINA WINTER on 01/29/21 1108 Review of Systems Constitutional: see HPI EENTM: see HPI Respiratory: see HPI Cardiovascular: see HPI, chest pain Genitourinary: no symptoms reported Musculoskeletal: see HPI, back pain Skin: no symptoms reported Psychiatric/Neurological: No Symptoms Reported (ANTONINA WINTER APRN) Past Dduwuxc-Umlfil-Atizcq Hx Patient Social History Tobacco Use?: No Use of E-Cig and/or Vaping dev: No Substance use?: No Alcohol Use?: No Pt feels they are or have been: No (ANTONINA WINTER APRN) Immunizations Up To Date Influenza Vaccine Up-to-Date: No; Not Current (ANTONINA WINTER APRN) Seasonal Allergies Seasonal Allergies: No (ANTONINA WINTER APRN) Past Medical History Surgery/Hospitalization HX: SX: REMOVAL OF EXTRA THUMB PMH: BULGING DISC LOWER BACK Surgeries: Yes Tubal Ligation Respiratory: Yes (P.E. 01/2020 WHILE ) Pulmonary Embolism Currently Using CPAP: No Currently Using BIPAP: No Cardiac: Yes (P.E. 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 SOCIAL HISTORY: -ETOH--REGULAR USE--FEW TIMES A WEEK/VODKA -DRUGS-+IV METH USE, THC -DENIES SMOKING MOVED HERE IN APRIL 2020 FROM [place], [place] WITH MALE S.O. AND CHILDREN DUE TO HOMELESSNESS--STAYING AT LOCAL [facility] FOR HOMELESS PEOPLE PT IS AB 1 PT HAD P.E. 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 ADDITIONALLY, PT HAD GESTATIONAL DIABETES (ANTONINA WINTER APRN) Physical Exam Vital Signs Vital Signs - First Documented 03/08/21 13:40 Temp 36.9 Pulse 80 Resp 18 B/P (MAP) 123/80 (94) Pulse Ox 99 O2 Delivery Room Air (ALCIDES RADFORD MD) Vital Signs Capillary Refill : Less Than 3 Seconds (ANTONINA WINTER APRN) Height, Weight, BMI Height: '" Weight: lbs. oz. kg; 285.00 BMI Method: General Appearance: No Apparent Distress, WD/WN, Obese HEENT: PERRL/EOMI, TMs Normal Neck: Full Range of Motion, Normal Inspection Respiratory: No Accessory Muscle Use, No Respiratory Distress Gastrointestinal: Normal Bowel Sounds, Non Tender, Soft Extremity: Normal Capillary Refill, Normal Inspection Neurologic/Psychiatric: Alert, Oriented x3 Skin: Normal Color, Warm/Dry (ANTONINA WINTER APRN) Progress/Results/Core Measures Results/Orders Lab Results Laboratory Tests Test 03/08/21 13:40 03/08/21 13:41 Range/Units Urine Test NEGATIVE NEGATIVE Urine Color YELLOW Urine Clarity CLEAR Urine pH 6.0 5-9 Urine Specific [place] >=1.030 1.016-1.022 Urine Protein NEGATIVE NEGATIVE Urine Glucose (UA) NEGATIVE NEGATIVE Urine Ketones NEGATIVE NEGATIVE Urine Nitrite NEGATIVE NEGATIVE Urine Bilirubin NEGATIVE NEGATIVE Urine Urobilinogen 0.2 < = 1.0 MG/DL Urine Leukocyte Esterase NEGATIVE NEGATIVE Urine RBC (Auto) NEGATIVE NEGATIVE Urine RBC NONE /HPF Urine WBC 0-2 /HPF Urine Squamous Epithelial Cells 2-5 /HPF Urine Crystals NONE /LPF Urine Bacteria FEW H /HPF Urine Casts NONE /LPF Urine Mucus SMALL H /LPF Urine Culture Indicated NO (ALCIDES RADFORD MD) Medications Given in ED Current Medications Medications Dose Ordered Sig/Lakisha Route Start Time Stop Time Status Last Admin Dose Admin Ketorolac Tromethamine 60 mg ONCE ONCE IM 03/08/21 14:30 03/08/21 14:31 DC 03/08/21 14:41 60 MG Orphenadrine Citrate 60 mg ONCE ONCE IM 03/08/21 14:30 03/08/21 14:31 DC 03/08/21 14:41 60 MG (ALCIDES RADFORD MD) Vital Signs/I&O 03/08/21 13:40 Temp 36.9 Pulse 80 Resp 18 B/P (MAP) 123/80 (94) Pulse Ox 99 O2 Delivery Room Air (ALCIDES RADFORD MD) Blood Pressure Mean: 94 Departure Impression Primary Impression: Thoracic back pain Disposition: 01 HOME, SELF-CARE Condition: Stable Departure-Patient Inst. Decision time for Depature: 15:00 (ANTONINA WINTER APRN) Referrals: [facility] [place] (PCP) Primary Care Physician LOU SERVIN APRN (Family) Primary Care Physician Patient Instructions: Upper Back Pain Add. Discharge Instructions: 1. Medication as directed 2. Follow-up with your doctor next week All discharge instructions reviewed with patient and/or family. Voiced understanding. ATTENDING PHYSICIAN NOTE: I was physically present as attending physician in the emergency department during the care of this patient, but I was not directly involved in the decision making or delivery of care for this patient. (ALCIDES RADFORD MD) Images Torso/Trunk 1 - Tenderness (ANTONINA WINTER APRN) ANTONINA WINTER APRN Mar 08, 2021 14:19 ALCIDES RADFORD MD Mar 08, 2021 18:58
[2021-03-08 14:22] LABS: BILIRUBIN,URINE NEGATIVE (NEGATIVE); CLARITY,URINE CLEAR; COLOR,URINE YELLOW; GLUCOSE, URINE (UA) NEGATIVE (NEGATIVE); KETONES,URINE NEGATIVE (NEGATIVE); LEUKOCYTE ESTERASE ,URINE NEGATIVE (NEGATIVE); NITRITE,URINE NEGATIVE (NEGATIVE); PROTEIN,URINE NEGATIVE (NEGATIVE)
[2021-03-08 14:29] LABS: BACTERIA,URINE FEW /HPF; WBC,URINE 0-2 /HPF
[2021-03-08] MEDS ORDERED: ORPHENADRINE 60 MG/2 ML (NORFLEX) AMP (ED ONLY) IM ONE (14:30)
[2021-03-08] MEDS ORDERED: KETOROLAC 60 MG/2 ML VIAL IM ONE (14:30)
--- NOTE | 2021-03-08 14:54 | Diagnostic Imaging Report ---
INDICATION: Posterior left thoracic pain. COMPARISON: 12/26/2020. FINDINGS: Frontal and lateral views of the chest demonstrate normal heart size and pulmonary vascularity. The lungs are clear. There are no signs of infiltrate, pleural effusions, or pneumothoraces. The visualized osseous structures show no acute abnormalities. IMPRESSION: No acute process. No signs of infiltrates, effusions, or pneumothoraces. Dictated by: Dictated on workstation # [id number]
== END 2021-03-08 15:11 | disposition home or self-care (01) ==
LOC: EDUNIT# 12:46 → ER 12:49
DX: M54.6 Pain in thoracic spine (principal); I50.9 Heart failure, unspecified; E66.9 Obesity, unspecified; G89.29 Other chronic pain; Z86.711 Personal history of pulmonary embolism; Z68.45 Body mass index [BMI] 70 or greater, adult; Z79.01 Long term (current) use of anticoagulants; Z79.891 Long term (current) use of opiate analgesic
CPT/HCPCS: 71046; 81000; 84703

== ENCOUNTER 2021-03-25 20:57 | Emergency (ER) | payer MEDICAID ==
[~2021-03-25] VITALS: Ht 160 cm; Wt 113.4 kg
--- OUTSIDE RECORDS SUMMARY | 2021-03-25 21:03 | XMS REPORT | Clinical Summary ---
Author Author [facility] Address Unknown Phone Unavailable Care Team Providers Care Women'S Apparel Salesperson Name Role Phone Driss Nobles MD Unavailable Unassigned, None PCP Unavailable Driss Nobles MD [phone] Allergies No known active allergies Medications No [...] Comments Vital Sign 133/70 04/09/2020 8:05 PM DENTURE WAXER Blood Pressure 117 04/09/2020 8:05 PM DENTURE WAXER Pulse 36.7 C (98.1 F) 04/09/2020 8:05 PM DENTURE WAXER Temperature 18 04/09/2020 8:05 PM DENTURE WAXER Respiratory Rate 99% 04/09/2020 8:05 PM DENTURE WAXER Oxygen Saturation - - Inhaled Oxygen Concentration 100.2 kg (221 lb) 04/09/2020 5:43 PM DENTURE WAXER Weight 160 cm (5' 3") 04/09/2020 5:43 PM DENTURE WAXER Height 39.15 04/09/2020 5:43 PM DENTURE WAXER Body Mass Index Plan of Treatment Health [...] 2020 OTHER -Present KANCARE [employer]ET[employer] KANCARE 19 [id number] 2018-P [address] resent [address] [facility] [address] KANCARE AET[employer] KANCARE 19 [id number] 2020- [address] Present [id number] [facility] [place] [address] Advance Directives For more information, please contact: [phone] 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
[2021-03-25 21:04] VITALS: BP 122/79
[2021-03-25] MEDS ORDERED: NAPR-1071 PO (21:19)
--- NOTE | 2021-03-25 21:19 | ED Lower Extremity ---
General Chief Complaint: Lower Extremity Stated Complaint: L LEG/BACK PAIN Nursing Triage Note: c/o left hip/leg pain since 03/23/21 after 4hr car ride. reports pain similiar to previous sciatica pain. Source: patient Exam Limitations: no limitations History of Present Illness Date Seen by Provider: Mar 25, 2021 Time Seen by Provider: 21:17 Initial Comments Recurrently left low back pain radiating down the left leg. no fevers or trauma. no cauda equina symptoms. Onset: other Severity: moderate Pain/Injury Location: left hip Method of Injury: unknown Modifying Factors: Worse With Movement Allergies and Home Medications Allergies Coded Allergies: No Known Drug Allergies (Unverified , 05/24/20) Patient Home Medication List Home Medication List Reviewed: Yes Amoxicillin/Potassium Clav (Amox Tr-K Clv 875-125 mg Tab) 1 Each Tablet, 875 MG PO BID WITH MEALS Prescribed by: VALDEMAR BARTON on 05/24/20 1242 Benzocaine/Menthol (Dermoplast Pain Relieving [place]) 78 Gm Aerosol, 56 ML TP UD PRN for PAIN- SEE INSTRUCTIONS Prescribed by: VALDEMAR BARTON on 05/24/20 1242 Diclofenac Sodium (Voltaren Arthritis Pain) 20 Gm Gel..gram., 1 GM TP TID Prescribed by: ANTONINA WINTER on 01/29/21 1211 Docusate Sodium (Dok) 100 Mg Capsule, 100 MG PO BID PRN for CONSTIPATION-1ST LINE Prescribed by: VALDEMAR BARTON on 05/24/20 1242 Enoxaparin Sodium (Enoxaparin Sodium) 40 Mg/0.4 Ml Syringe, 0 MG SQ Q24H Prescribed by: VALDEMAR BARTON on 05/24/20 1242 Gabapentin (Gabapentin) 100 Mg Capsule, 200 MG PO Q8H PRN for PAIN-MODERATE (5- 7) Prescribed by: ANTONINA WINTER on 11/04/20 1137 Hydrocodone/Acetaminophen (Hydrocodone-Acetamin 5-325 mg) 1 Each Tablet, 1 TAB PO Q6H PRN for PAIN-MODERATE (5-7) Prescribed by: ANY BUSH on 09/23/20 1036 Ibuprofen (Ibu) 600 Mg Tablet, 600 MG PO Q6HR Prescribed by: VALDEMAR BARTON on 05/24/20 1242 Meloxicam (Meloxicam) 7.5 Mg Tablet, 7.5 MG PO DAILY Prescribed by: CUATE VILLASENOR on 10/24/20 0049 Methylprednisolone (Medrol) 4 Mg Tab.ds.pk, 4 MG PO UD Prescribed by: JANENE DICKEY on 08/08/20 0028 Naproxen (Naprosyn) 500 Mg Tablet, 500 MG PO BID PRN for PAIN-MODERATE (5-7) Prescribed by: ANTONINA WINTER on 12/29/20 165 Naproxen (Naprosyn) 500 Mg Tablet, 500 MG PO BID Prescribed by: ANTONINA WINTER on 03/25/21 211 Nitrofurantoin Macrocrystal (Nitrofurantoin) 100 Mg Capsule, 100 MG PO BID Prescribed by: YE JOEL on 12/02/20 133 Ondansetron (Ondansetron Odt) 4 Mg Tab.rapdis, 4 MG PO Q6H PRN for NAUSEA-1ST LINE Prescribed by: JOANNA ANNE on 10/13/20 181 Pantoprazole Sodium (Protonix) 40 Mg Tablet.dr, 40 MG PO DAILY Prescribed by: JANENE DICKEY on 08/08/2027 Prednisone (Prednisone) 20 Mg Tab, 40 MG PO DAILY Prescribed by: ANTONINA WINTER on 09/06/20 2019 Prednisone (Prednisone) 20 Mg Tab, 40 MG PO DAILY Prescribed by: ANTONINA WINTER on 11/04/20 113 Prednisone (Prednisone) 20 Mg Tab, 40 MG PO DAILY Prescribed by: YE JOEL on 12/02/20 1335 Tramadol HCl (Ultram) 50 Mg Tablet, 50 MG PO Q6H PRN for PAIN-BREAKTHROUGH Prescribed by: ALCIDES CONNELLY on 09/19/20 1215 Tramadol HCl (Tramadol HCl) 50 Mg Tablet, 50 MG PO Q6H PRN for PAIN Prescribed by: CUATE VILLASENOR on 10/24/20 0050 Tramadol HCl (Tramadol HCl) 50 Mg Tablet, 50 MG PO Q6H PRN for PAIN Prescribed by: YE JOEL on 12/02/20 1336 Tramadol HCl (Ultram) 50 Mg Tablet, 50 MG PO Q6H PRN for PAIN-MODERATE (5-7) Prescribed by: ANTONINA WINTER on 12/29/20 165 Tramadol HCl (Ultram) 50 Mg Tablet, 50 MG PO Q6H PRN for PAIN-MODERATE (5-7) Prescribed by: ANTONINA WINTER on 01/29/21 1108 Review of Systems Constitutional: see HPI EENTM: see HPI Respiratory: no symptoms reported Cardiovascular: no symptoms reported Genitourinary: no symptoms reported Musculoskeletal: see HPI, back pain Skin: no symptoms reported Psychiatric/Neurological: No Symptoms Reported Past Utepubo-Ovhspf-[id number] Hx Patient Social History Tobacco Use?: No Substance use?: No Alcohol Use?: Yes Alcohol Frequency: Once in a while Pt feels they are or have been: No Seasonal Allergies Seasonal Allergies: No Past Medical History Surgery/Hospitalization HX: SX: REMOVAL OF EXTRA THUMB PMH: BULGING DISC LOWER BACK bipolar, anxiety, depression sciatica Surgeries: Yes Tubal Ligation Respiratory: Yes (P.E. 01/2020 WHILE ) Pulmonary Embolism Currently Using CPAP: No Currently Using BIPAP: No Cardiac: Yes (P.E. 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) Congenital Heart Disease Neurological: No Last Menstrual Period: Mar 11, 2021 Reproductive Disorders: No [employer] History: Tubal Ligation Sexually Transmitted Disease: No HIV/AIDS: No Genitourinary: No Gastrointestinal: Yes Hemorrhoids Musculoskeletal: Yes Chronic Back Pain Endocrine: Yes (OBESITY; GESTATIONAL DIABETES) HEENT: No Loss of Vision: Denies Hearing Impairment: Denies Cancer: No Psychosocial: Yes (POLYSUBSTANCE ABUSE) Anxiety, Depression Integumentary: No Blood Disorders: No Adverse Reaction/Blood Tranf: No Family Medical History Patient reports no known family medical history. SOCIAL HISTORY: -ETOH--REGULAR USE--FEW TIMES A WEEK/VODKA -DRUGS-+IV METH USE, THC -DENIES SMOKING MOVED HERE IN APRIL 2020 FROM [place], [place] WITH MALE S.O. AND CHILDREN DUE TO HOMELESSNESS--STAYING AT LOCAL [facility] FOR HOMELESS PEOPLE PT IS AB 1 PT HAD P.E. 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 ADDITIONALLY, PT HAD GESTATIONAL DIABETES Physical Exam Vital Signs Vital Signs - First Documented 03/25/21 21:04 Temp 36.6 Pulse 94 Resp 16 B/P (MAP) 122/79 (93) Pulse Ox 99 O2 Delivery Room Air Capillary Refill : Less Than 3 Seconds Height, Weight, BMI Height: '" Weight: lbs. oz. kg; 44.00 BMI Method: General Appearance: WD/WN, no apparent distress Respiratory: no respiratory distress, no accessory muscle use Hips: bilateral hip non-tender, bilateral hip normal inspection, bilateral hip normal range of motion Legs: bilateral leg non-tender, bilateral leg normal inspection, bilateral leg normal range of motion Knees: bilateral knee non-tender, bilateral knee normal inspection, bilateral knee normal range of motion Ankles: bilateral ankle non-tender, bilateral ankle normal inspection, bilateral ankle normal range of motion Neurologic/Psychiatric: alert, normal mood/affect, oriented x 3 Skin: normal color, warm/dry Progress/Results/Core Measures Results/Orders My Orders Orders - ANTONINA WINTER APRN Ketorolac Injection (Toradol Injection) (03/25/21 21:30) Orphenadrine Inj (Ed Only) (Norflex Inje (03/25/21 21:30) Vital Signs/I&O 03/25/21 21:04 Temp 36.6 Pulse 94 Resp 16 B/P (MAP) 122/79 (93) Pulse Ox 99 O2 Delivery Room Air Blood Pressure Mean: 93 Departure Impression Primary Impression: Lumbar radiculopathy Disposition: 01 HOME, SELF-CARE Condition: Stable Departure-Patient Inst. Decision time for Depature: 21:17 Referrals: [facility] [place] Primary Care Physician LUO SERVIN APRN (Family) Primary Care Physician DANI CRANE BRIAN J MD MOORE, TOBY G DO Patient Instructions: Radiculopathy Add. Discharge Instructions: 1. Return to Er for any concerns 2. Follow upw ith your doctor next week 3. All discharge instructions reviewed with patient and/or family. Voiced understanding. Scripts Naproxen (Naprosyn) 500 Mg Tablet 500 MG PO BID, #30 TAB 0 Refills Prov: ANTONINA WINTER APRN 03/25/21 ANTONINA WINTER APRN Mar 25, 2021 21:19
[2021-03-25] MEDS ORDERED: KETOROLAC 60 MG/2 ML VIAL IM ONE (21:30)
[2021-03-25] MEDS ORDERED: ORPHENADRINE 60 MG/2 ML (NORFLEX) AMP (ED ONLY) IM ONE (21:30)
== END 2021-03-25 21:30 | disposition home or self-care (01) ==
LOC: EDUNIT# 20:57 → ER 20:59
DX: M54.16 Radiculopathy, lumbar region (principal); G89.29 Other chronic pain; M54.9 Dorsalgia, unspecified; E66.9 Obesity, unspecified; Z68.41 Body mass index [BMI] 40.0-44.9, adult; Z86.711 Personal history of pulmonary embolism; Z79.891 Long term (current) use of opiate analgesic; Z79.01 Long term (current) use of anticoagulants
CPT/HCPCS: 99284

== ENCOUNTER 2021-05-12 12:14 | Emergency (ER) | payer MEDICAID ==
[~2021-05-12] VITALS: Ht 160 cm; Wt 113.4 kg
--- NOTE | 2021-05-12 14:07 | ED General ---
General Chief Complaint: COVID19 Suspect/Confirmed Stated Complaint: COVID +/CHEST PAIN/HEADACHE/BODYACHES/NAUSEA Nursing Triage Note: PT AMB TO RM 7 WITH COMPLAINT OF CP AND + HOME COVID TEST. STATES SYMPTOMS STARTED SUNDAY Source of Information: Patient Exam Limitations: No Limitations History of Present Illness Date Seen by Provider: May 12, 2021 Time Seen by Provider: 13:30 Initial Comments Here with report mild chest pain that she states is sharp and intermittent. Self diagnosed with Covid but started on Sunday from the home test. She has not had formal testing. She has had Covid previously at [place] time 2019. She has not had vaccination. 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 Denies nausea, vomiting or diarrhea. Denies shortness of breath. Does have history of pulmonary emboli with the last time around December 2019. She is not on blood thinners. Denies pain in her legs out of normal, swelling out of normal, recent long trips, trauma or surgery. Timing/Duration: 1-2 Days, Intermittent Severity: Mild Associated Systoms: Chest Pain (Sharp, left-sided and brief), Cough (Mild), Fever/Chills; No Nausea/Vomiting, No Shortness of Air, No Weakness Allergies and Home Medications Allergies Coded Allergies: No Known Drug Allergies (Unverified , 05/24/20) Patient Home Medication List Home Medication List Reviewed: Yes Amoxicillin/Potassium Clav (Amox Tr-K Clv 875-125 mg Tab) 1 Each Tablet, 875 MG PO BID WITH MEALS Prescribed by: VALDEMAR BARTON on 05/24/20 1242 Benzocaine/Menthol (Dermoplast Pain Relieving [place]) 78 Gm Aerosol, 56 ML TP UD PRN for PAIN- SEE INSTRUCTIONS Prescribed by: VALDEMAR BARTON on 05/24/20 1242 Diclofenac Sodium (Voltaren Arthritis Pain) 20 Gm Gel..gram., 1 GM TP TID Prescribed by: ANTONINA WINTER on 01/29/21 1211 Docusate Sodium (Dok) 100 Mg Capsule, 100 MG PO BID PRN for CONSTIPATION-1ST LINE Prescribed by: VALDEMAR BARTON on 05/24/20 1242 Enoxaparin Sodium (Enoxaparin Sodium) 40 Mg/0.4 Ml Syringe, 0 MG SQ Q24H Prescribed by: VALDEMAR BARTON on 05/24/20 1242 Gabapentin (Gabapentin) 100 Mg Capsule, 200 MG PO Q8H PRN for PAIN-MODERATE (5- 7) Prescribed by: ANTONINA WINTER on 11/04/20 1137 Hydrocodone/Acetaminophen (Hydrocodone-Acetamin 5-325 mg) 1 Each Tablet, 1 TAB PO Q6H PRN for PAIN-MODERATE (5-7) Prescribed by: ANY BUSH on 09/23/20 1036 Ibuprofen (Ibu) 600 Mg Tablet, 600 MG PO Q6HR Prescribed by: VALDEMAR BARTON on 05/24/20 1242 Meloxicam (Meloxicam) 7.5 Mg Tablet, 7.5 MG PO DAILY Prescribed by: CUATE VILLASENOR on 10/24/20 0049 Methylprednisolone (Medrol) 4 Mg Tab.ds.pk, 4 MG PO UD Prescribed by: JANENE DICKEY on 08/08/20 0028 Naproxen (Naprosyn) 500 Mg Tablet, 500 MG PO BID PRN for PAIN-MODERATE (5-7) Prescribed by: ANTONINA WINTER on 12/29/20 1654 Naproxen (Naprosyn) 500 Mg Tablet, 500 MG PO BID Prescribed by: ANTONINA WINTER on 03/25/21 2119 Nitrofurantoin Macrocrystal (Nitrofurantoin) 100 Mg Capsule, 100 MG PO BID Prescribed by: YE JOEL on 12/02/20 1339 Ondansetron (Ondansetron Odt) 4 Mg Tab.rapdis, 4 MG PO Q6H PRN for NAUSEA-1ST LINE Prescribed by: JOANNA ANNE on 10/13/20 1815 Pantoprazole Sodium (Protonix) 40 Mg Tablet.dr, 40 MG PO DAILY Prescribed by: JANENE DICKEY on 08/08/20 0028 Prednisone (Prednisone) 20 Mg Tab, 40 MG PO DAILY Prescribed by: ANTONINA WINTER on 09/06/20 2019 Prednisone (Prednisone) 20 Mg Tab, 40 MG PO DAILY Prescribed by: ANTONINA WINTER on 11/04/20 113 Prednisone (Prednisone) 20 Mg Tab, 40 MG PO DAILY Prescribed by: YE JOEL on 12/02/20 1335 Tramadol HCl (Ultram) 50 Mg Tablet, 50 MG PO Q6H PRN for PAIN-BREAKTHROUGH Prescribed by: ALCIDES CONNELLY on 09/19/20 1215 Tramadol HCl (Tramadol HCl) 50 Mg Tablet, 50 MG PO Q6H PRN for PAIN Prescribed by: CUATE VILLASENOR on 10/24/20 0050 Tramadol HCl (Tramadol HCl) 50 Mg Tablet, 50 MG PO Q6H PRN for PAIN Prescribed by: YE JOEL on 12/02/20 1336 Tramadol HCl (Ultram) 50 Mg Tablet, 50 MG PO Q6H PRN for PAIN-MODERATE (5-7) Prescribed by: ANTONINA WINTER on 12/29/20 1654 Tramadol HCl (Ultram) 50 Mg Tablet, 50 MG PO Q6H PRN for PAIN-MODERATE (5-7) Prescribed by: ANTONINA WINTER on 01/29/21 1108 Review of Systems Review of Systems Constitutional: see HPI; No chills; fever; No weakness EENTM: nose congestion; No throat pain Respiratory: cough; No short of breath Cardiovascular: see HPI; No syncope Gastrointestinal: No nausea, No vomiting Genitourinary: no symptoms reported Musculoskeletal: No joint pain; muscle pain Skin: No change in color, No lesions Psychiatric/Neurological: Denies Headache, Denies Weakness All Other Systems Reviewed Negative Unless Noted: Yes Past Difhfwp-Dikfcr-Gtmrkq Hx Patient Social History Tobacco Use?: No Use of E-Cig and/or Vaping dev: No Substance use?: Yes Substance type: Marijuana Alcohol Use?: Yes Alcohol Frequency: Once in a while Pt feels they are or have been: No Immunizations Up To Date First/Initial COVID19 Vaccinat: NO Second COVID19 Vaccination Rajeev: NO Seasonal Allergies Seasonal Allergies: No Past Medical History Surgery/Hospitalization HX: SX: REMOVAL OF EXTRA THUMB PMH: BULGING DISC LOWER BACK bipolar, anxiety, depression sciatica Surgeries: Yes Tubal Ligation Respiratory: Yes (P.E. 01/2020 WHILE ) Pulmonary Embolism Currently Using CPAP: No Currently Using BIPAP: No Cardiac: Yes (P.E. 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 No Pertinent Family Hx Physical Exam Vital Signs Vital Signs - First Documented 05/12/21 12:55 Pulse 97 Resp 19 B/P (MAP) 130/78 (95) Pulse Ox 99 O2 Delivery Room Air Capillary Refill : Less Than 3 Seconds Height, Weight, BMI Height: '" Weight: lbs. oz. kg; 44.00 BMI Method: General Appearance: No Apparent Distress, WD/WN, Obese HEENT: PERRL/EOMI, Pharynx Normal Neck: Non Tender, Supple Respiratory: Lungs Clear, Normal Breath Sounds Cardiovascular: Regular Rate, Rhythm, No Murmur Gastrointestinal: Non Tender, Soft Back: Normal Inspection, No CVA Tenderness, No Vertebral Tenderness Extremity: Normal Range of Motion, Non Tender Neurologic/Psychiatric: Alert, Oriented x3 Skin: Normal Color, Warm/Dry Progress/Results/Core Measures Suspected Sepsis SIRS Temperature: Pulse: 97 Respiratory Rate: 19 Laboratory Tests 05/12/21 14:20: White Blood Count 6.4 Blood Pressure 130 /78 Mean: 95 Laboratory Tests 05/12/21 14:20: Creatinine 0.73, Platelet Count 278, Total Bilirubin 0.4 Results/Orders Lab Results Laboratory Tests Test 05/12/21 14:20 Range/Units White Blood Count 6.4 4.3-11.0 10^3/uL Red Blood Count 4.63 3.80-5.11 10^6/uL Hemoglobin 12.1 11.5-16.0 g/dL Hematocrit 38 35-52 % Mean Corpuscular Volume 81 80-99 fL Mean Corpuscular Hemoglobin 26 25-34 pg Mean Corpuscular Hemoglobin Concent 32 32-36 g/dL Red Cell Distribution Width 13.4 10.0-14.5 % Platelet Count 278 130-400 10^3/uL Mean Platelet Volume 10.2 9.0-12.2 fL Immature Granulocyte % (Auto) 1 % Neutrophils (%) (Auto) 63 42-75 % Lymphocytes (%) (Auto) 15 12-44 % Monocytes (%) (Auto) 8 0-12 % Eosinophils (%) (Auto) 14 H 0-10 % Basophils (%) (Auto) 1 0-10 % Neutrophils # (Auto) 4.0 1.8-7.8 10^3/uL Lymphocytes # (Auto) 0.9 L 1.0-4.0 10^3/uL Monocytes # (Auto) 0.5 0.0-1.0 10^3/uL Eosinophils # (Auto) 0.9 H 0.0-0.3 10^3/uL Basophils # (Auto) 0.0 0.0-0.1 10^3/uL Immature Granulocyte # (Auto) 0.0 0.0-0.1 10^3/uL D-Dimer 0.32 0.00-0.49 UG/ML Sodium Level 139 135-145 MMOL/L Potassium Level 3.7 3.6-5.0 MMOL/L Chloride Level 102 98-107 MMOL/L Carbon Dioxide Level 26 21-32 MMOL/L Anion Gap 11 5-14 MMOL/L Blood Urea Nitrogen 14 7-18 MG/DL Creatinine 0.73 0.60-1.30 MG/DL Estimat Glomerular Filtration Rate 115 BUN/Creatinine Ratio 19 Glucose Level 94 70-105 MG/DL Calcium Level 9.6 8.5-10.1 MG/DL Corrected Calcium 9.4 8.5-10.1 MG/DL Total Bilirubin 0.4 0.1-1.0 MG/DL Aspartate Amino Transf (AST/SGOT) 19 5-34 U/L Alanine Aminotransferase (ALT/SGPT) 27 0-55 U/L Alkaline Phosphatase 57 40-136 U/L C-Reactive Protein High Sensitivity 0.49 0.00-0.50 MG/DL Total Protein 7.0 6.4-8.2 GM/DL Albumin 4.3 3.2-4.5 GM/DL My Orders Orders - CAITLIN CAMPOS MD Cbc With Automated Diff (05/12/21 13:39) Comprehensive Metabolic Panel (05/12/21 13:39) Hs C Reactive Protein (05/12/21 13:39) Fibrin Degradation Products (05/12/21 13:39) Ed Iv/Invasive Line Start (05/12/21 13:39) Coronavirus Sars-Cov-2 So 2018 (05/12/21 13:39) Ekg Tracing (05/12/21 14:11) Ondansetron Injection (Zofran Injectio (05/12/21 14:30) Ondansetron Injection (Zofran Injectio (05/12/21 14:22) Manual Differential (05/12/21 14:20) Medications Given in ED Current Medications Medications Dose Ordered Sig/Lakisha Route Start Time Stop Time Status Last Admin Dose Admin Ondansetron HCl 4 mg ONCE ONCE IVP 05/12/21 14:30 05/12/21 14:31 DC 05/12/21 14:28 4 MG Vital Signs/I&O 05/12/21 12:55 Pulse 97 Resp 19 B/P (MAP) 130/78 (95) Pulse Ox 99 O2 Delivery Room Air Capillary Refill : Less Than 3 Seconds Blood Pressure Mean: 95 Progress Note : Progress Note Seen and evaluated. IV, labs ordered. EKG ordered. Monitor patient. Does have history of pulmonary emboli. We will check D-dimer. We will hold radiological evaluation until lab testing is complete as she has had quite a bit of radiation in the past for evaluation and we would like to prevent further dosing if needed. Patient agrees. Monitor patient. 1514: Labs do not show any significant abnormality and D-dimer is negative. Patient has been instructed regarding typical Covid instructions. Discharged home with return precautions. Patient verbalized understanding of instructions and agreement with plan. Patient has had previous Covid infection. There is currently no monoclonal antibody available. I believe she is lower risk given her previous infection and age although she does meet BMI category. Cross-reactivity with medications would be a concern. We do not have verified testing yet and that is pending. She will be instructed that if positive she could seek evaluation through her primary care to determine appropriateness of oral antivirals. ECG Initial ECG Impression Date: May 12, 2021 Initial ECG Impression Time: 14:38 Initial ECG Rate: 80 Initial ECG Rhythm: Normal Sinus Initial ECG Impression: Normal Comment Sinus rhythm with normal axis. No evidence of ST elevation NE. Similar to previous of 12/26/2020. Interpreted by me. Departure Impression Primary Impression: COVID-19 virus infection Disposition: 01 HOME, SELF-CARE Condition: Stable Departure-Patient Inst. Decision time for Depature: 15:18 Referrals: [facility]/ (PCP) Primary Care Physician LOU SERVIN APRN (Family) Primary Care Physician Add. Discharge Instructions: All discharge instructions reviewed with patient and/or family. Voiced understanding. Drink plenty of fluids and get plenty of rest. Your home test for Covid was positive and it is very likely that you do have COVID-19. Your formal testing is pending. If this is positive, you will be called. At that time you could seek evaluation from your primary care for consideration for oral antiviral therapy that may be available in the community at the time. Monitor your oxygen saturation and return if O2 saturations are 90% or less while resting. You may take ibuprofen 600 mg every 8 hours as needed for fever or pain. You may take Tylenol/acetaminophen 1000 mg every 8 hours as needed for fever or pain. Return for worse pain, fever, vomiting, weakness, breathing problems or other concerns as needed. CAITLIN CAMPOS MD May 12, 2021 14:07
[2021-05-12] MEDS ORDERED: ONDANSETRON 4 MG/2 ML (SDV) Z0FRAN ONE (14:22)
[2021-05-12 14:27] LABS: BASOPHILS % (AUTO) 1 % (0-10); EOSINOPHILS # (AUTO) 0.9 10^3/uL (0.0-0.3); EOSINOPHILS % (AUTO) 14 % (0-10); HEMATOCRIT 38 % (35-52); HEMOGLOBIN 12.1 g/dL (11.5-16.0); LYMPHOCYTES # (AUTO) 0.9 10^3/uL (1.0-4.0); LYMPHOCYTES % (AUTO) 15 % (12-44); MEAN CORPUSCULAR HEMOGLOBIN 26 pg (25-34); MEAN CORPUSCULAR HGB CONC 32 g/dL (32-36); MEAN CORPUSCULAR VOLUME 81 fL (80-99); MEAN PLATELET VOLUME 10.2 fL (9.0-12.2); MONOCYTES # (AUTO) 0.5 10^3/uL (0.0-1.0); MONOCYTES % (AUTO) 8 % (0-12); NEUTROPHILS % (AUTO) 63 % (42-75); PLATELET COUNT 278 10^3/uL (130-400); WHITE BLOOD COUNT 6.4 10^3/uL (4.3-11.0)
[2021-05-12] MEDS ORDERED: ONDANSETRON 4 MG/2 ML (SDV) Z0FRAN IVP ONE (14:30)
[2021-05-12 14:41] LABS: ALBUMIN 4.3 GM/DL (3.2-4.5); POTASSIUM 3.7 MMOL/L (3.6-5.0)
[2021-05-12 14:42] LABS: CALCIUM 9.6 MG/DL (8.5-10.1)
[2021-05-12 14:45] LABS: BILIRUBIN,TOTAL 0.4 MG/DL (0.1-1.0)
[2021-05-12 14:47] LABS: CREATININE SERUM 0.73 MG/DL (0.60-1.30)
[2021-05-12 15:16] LABS: BAND NEUTROPHILS 0 %; BASOPHILS % (MANUAL) 0 %; EOSINOPHILS % (MANUAL) 8 %; LYMPHOCYTES % (MANUAL) 13 %; MONOCYTES % (MANUAL) 8 %; NEUTROPHILS % (MANUAL) 71 %; RBC MORPH NORMAL
[2021-05-12 15:43] VITALS: BP 147/91
== END 2021-05-12 15:43 | disposition home or self-care (01) ==
LOC: EDUNIT# 12:14 → ER 12:17
DX: U07.1 COVID-19 (principal); G89.29 Other chronic pain; M54.9 Dorsalgia, unspecified; E66.9 Obesity, unspecified; Z68.41 Body mass index [BMI] 40.0-44.9, adult; Z86.711 Personal history of pulmonary embolism; Z79.01 Long term (current) use of anticoagulants; Z79.891 Long term (current) use of opiate analgesic
CPT/HCPCS: 36415; 80053; 85007; 85027; 85379; 86141; 87635; 93005

== ENCOUNTER 2021-07-04 10:52 | Emergency (ER) | payer MEDICAID ==
[~2021-07-04] VITALS: Ht 160 cm; Wt 111.0 kg
--- NOTE | 2021-07-04 11:10 | ED Chest Pain ---
General Chief Complaint: Chest Wall Stated Complaint: CHEST PAIN, COUGH, CONGESTION Nursing Triage Note: PT PRESENTS TO ED WITH COMPLAINTS OF R MIDDLE CHEST PAIN THAT INCREASES WITH INSPIRATION AND MOVEMENT SINCE LASST NIGHT. Source: patient Exam Limitations: no limitations History of Present Illness Date Seen by Provider: Jul 04, 2021 Time Seen by Provider: 11:07 Initial Comments To ER by private vehicle with reports of central chest pain severe in nature sudden onset last night worsened by movement and deep breathing. She had a productive cough for 3 weeks following diagnosis of influenza 3 weeks ago. She has a history of pulmonary embolism and was temporarily on oral anticoagulation. It was attributed to her oral control. She is not currently on anticoagulation. She does not smoke. 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: No NTG SL LEAD SECTION SUPERVISOR: No Associated Symptoms: denies symptoms Allergies and Home Medications Allergies Coded Allergies: No Known Drug Allergies (Unverified , 05/24/20) Patient Home Medication List Home Medication List Reviewed: Yes Amoxicillin/Potassium Clav (Amox Tr-K Clv 875-125 mg Tab) 1 Each Tablet, 875 MG PO BID WITH MEALS Prescribed by: VALDEMAR BARTON on 05/24/20 1242 Benzocaine/Menthol (Dermoplast Pain Relieving [place]) 78 Gm Aerosol, 56 ML TP UD PRN for PAIN- SEE INSTRUCTIONS Prescribed by: VALDEMAR BARTON on 05/24/20 1242 Diclofenac Sodium (Voltaren Arthritis Pain) 20 Gm Gel..gram., 1 GM TP TID Prescribed by: ANTONINA WINTER on 01/29/21 1211 Docusate Sodium (Dok) 100 Mg Capsule, 100 MG PO BID PRN for CONSTIPATION-1ST LINE Prescribed by: VALDEMAR BARTON on 05/24/20 1242 Enoxaparin Sodium (Enoxaparin Sodium) 40 Mg/0.4 Ml Syringe, 0 MG SQ Q24H Prescribed by: VALDEMAR BARTON on 05/24/20 1242 Gabapentin (Gabapentin) 100 Mg Capsule, 200 MG PO Q8H PRN for PAIN-MODERATE (5- 7) Prescribed by: ANTONINA WINTER on 11/04/20 1137 Guaifenesin/Codeine Phosphate (Guaifenesin-Codeine Syrup) 5 Ml Liquid, 5 ML PO Q4H PRN for COUGH Prescribed by: ANTONINA WINTER on 07/04/21 1213 Hydrocodone/Acetaminophen (Hydrocodone-Acetamin 5-325 mg) 1 Each Tablet, 1 TAB PO Q6H PRN for PAIN-MODERATE (5-7) Prescribed by: ANY BUSH on 09/23/20 1036 Ibuprofen (Ibu) 600 Mg Tablet, 600 MG PO Q6HR Prescribed by: VALDEMAR BARTON on 05/24/20 1242 Meloxicam (Meloxicam) 7.5 Mg Tablet, 7.5 MG PO DAILY Prescribed by: CUATE VILLASENOR on 10/24/20 0049 Methylprednisolone (Medrol) 4 Mg Tab.ds.pk, 4 MG PO UD Prescribed by: JANENE DICKEY on 08/08/20 0028 Naproxen (Naprosyn) 500 Mg Tablet, 500 MG PO BID PRN for PAIN-MODERATE (5-7) Prescribed by: ANTONINA WINTER on 12/29/20 1654 Naproxen (Naprosyn) 500 Mg Tablet, 500 MG PO BID Prescribed by: ANTONINA WINTER on 03/25/21 2119 Nitrofurantoin Macrocrystal (Nitrofurantoin) 100 Mg Capsule, 100 MG PO BID Prescribed by: YE JOEL on 12/02/20 1339 Ondansetron (Ondansetron Odt) 4 Mg Tab.rapdis, 4 MG PO Q6H PRN for NAUSEA-1ST LINE Prescribed by: JOANNA ANNE on 10/13/20 1815 Pantoprazole Sodium (Protonix) 40 Mg Tablet.dr, 40 MG PO DAILY Prescribed by: JANENE DICKEY on 08/08/20 0028 Prednisone (Prednisone) 20 Mg Tab, 40 MG PO DAILY Prescribed by: ANTONINA WINTER on 09/06/20 2019 Prednisone (Prednisone) 20 Mg Tab, 40 MG PO DAILY Prescribed by: ANTONINA WINTER on 11/04/20 1137 Prednisone (Prednisone) 20 Mg Tab, 40 MG PO DAILY Prescribed by: YE JOEL on 12/02/20 1335 Prednisone (Prednisone) 20 Mg Tab, 40 MG PO DAILY Prescribed by: ANTONINA WINTER on 07/04/21 1213 Tramadol HCl (Ultram) 50 Mg Tablet, 50 MG PO Q6H PRN for PAIN-BREAKTHROUGH Prescribed by: ALCIDES CONNELLY on 09/19/20 1215 Tramadol HCl (Tramadol HCl) 50 Mg Tablet, 50 MG PO Q6H PRN for PAIN Prescribed by: CUATE VILLASENOR on 10/24/20 0050 Tramadol HCl (Tramadol HCl) 50 Mg Tablet, 50 MG PO Q6H PRN for PAIN Prescribed by: YE JOEL on 12/02/20 1336 Tramadol HCl (Ultram) 50 Mg Tablet, 50 MG PO Q6H PRN for PAIN-MODERATE (5-7) Prescribed by: ANTONINA WINTER on 12/29/20 1654 Tramadol HCl (Ultram) 50 Mg Tablet, 50 MG PO Q6H PRN for PAIN-MODERATE (5-7) Prescribed by: ANTONINA WINTER on 01/29/21 1108 Review of Systems Review of Systems Constitutional: see HPI EENTM: No Symptoms Reported Respiratory: See HPI, Cough Cardiovascular: No Symptoms Reported Gastrointestinal: No Symptoms Reported Genitourinary: No Symptoms Reported Musculoskeletal: no symptoms reported Skin: no symptoms reported Psychiatric/Neurological: No Symptoms Reported Endocrine: No Symptoms Reported Hematologic/Lymphatic: No Symptoms Reported Past Qcdtdmj-Qaloqj-Gyvskd Hx Patient Social History Tobacco Use?: No Substance use?: Yes Substance type: Marijuana Alcohol Use?: Yes Alcohol Frequency: Once in a while Pt feels they are or have been: No Immunizations Up To Date First/Initial COVID19 Vaccinat: NO Second COVID19 Vaccination Rajeev: NO Third COVID19 Vaccination Date: NO Seasonal Allergies Seasonal Allergies: No Past Medical History Surgery/Hospitalization HX: SX: REMOVAL OF EXTRA THUMB PMH: BULGING DISC LOWER BACK bipolar, anxiety, depression sciatica Surgeries: Yes Tubal Ligation Respiratory: Yes (P.E. 01/2020 WHILE ) Pulmonary Embolism Currently Using CPAP: No Currently Using BIPAP: No Cardiac: Yes (P.E. 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 No Pertinent Family Hx MOVED HERE IN APRIL 2020 FROM [place], [place] WITH MALE S.O. AND CHILDREN DUE TO HOMELESSNESS PT IS AB 1 PT HAD P.E. 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 ADDITIONALLY, PT HAD GESTATIONAL DIABETES Physical Exam Vital Signs Vital Signs - First Documented 07/04/21 10:58 Temp 36.3 Pulse 104 Resp 18 B/P (MAP) 153/106 (122) Pulse Ox 96 O2 Delivery Room Air Capillary Refill : Less Than 3 Seconds Height, Weight, BMI Height: '" Weight: lbs. oz. kg; 43.00 BMI Method: General Appearance: WD/WN, Anxious (Tachycardic heart rate of 120 blood pressure is 140s over 100 oxygen 99% room air. She is sobbing uncontrollably) Neck: Full Range of Motion, Normal Inspection Respiratory: Normal Breath Sounds, No Accessory Muscle Use, No Respiratory Distress Cardiovascular: Normal Peripheral Pulses, Tachycardia Gastrointestinal: Normal Bowel Sounds, Non Tender, Soft Extremity: Normal Capillary Refill, Normal Inspection Neurologic/Psychiatric: Alert, Oriented x3 Skin: Normal Color, Warm/Dry Progress/Results/Core Measures Results/Orders Lab Results Laboratory Tests Test 07/04/21 11:03 Range/Units White Blood Count 7.4 4.3-11.0 10^3/uL Red Blood Count 5.06 3.80-5.11 10^6/uL Hemoglobin 13.1 11.5-16.0 g/dL Hematocrit 41 35-52 % Mean Corpuscular Volume 81 80-99 fL Mean Corpuscular Hemoglobin 26 25-34 pg Mean Corpuscular Hemoglobin Concent 32 32-36 g/dL Red Cell Distribution Width 14.5 10.0-14.5 % Platelet Count 393 130-400 10^3/uL Mean Platelet Volume 10.2 9.0-12.2 fL Immature Granulocyte % (Auto) 0 % Neutrophils (%) (Auto) 52 42-75 % Lymphocytes (%) (Auto) 31 12-44 % Monocytes (%) (Auto) 6 0-12 % Eosinophils (%) (Auto) 10 0-10 % Basophils (%) (Auto) 1 0-10 % Neutrophils # (Auto) 3.9 1.8-7.8 X 10^3 Lymphocytes # (Auto) 2.3 1.0-4.0 X 10^3 Monocytes # (Auto) 0.5 0.0-1.0 X 10^3 Eosinophils # (Auto) 0.8 H 0.0-0.3 10^3/uL Basophils # (Auto) 0.0 0.0-0.1 10^3/uL Immature Granulocyte # (Auto) 0.0 0.0-0.1 10^3/uL Sodium Level 139 135-145 MMOL/L Potassium Level 4.0 3.6-5.0 MMOL/L Chloride Level 106 98-107 MMOL/L Carbon Dioxide Level 24 21-32 MMOL/L Anion Gap 9 5-14 MMOL/L Blood Urea Nitrogen 8 7-18 MG/DL Creatinine 0.76 0.60-1.30 MG/DL Estimat Glomerular Filtration Rate 109 BUN/Creatinine Ratio 11 Glucose Level 107 H 70-105 MG/DL Calcium Level 9.3 8.5-10.1 MG/DL Corrected Calcium 9.0 8.5-10.1 MG/DL Total Bilirubin 0.4 0.1-1.0 MG/DL Aspartate Amino Transf (AST/SGOT) 19 5-34 U/L Alanine Aminotransferase (ALT/SGPT) 22 0-55 U/L Alkaline Phosphatase 63 40-136 U/L C-Reactive Protein High Sensitivity 0.44 0.00-0.50 MG/DL Total Protein 7.2 6.4-8.2 GM/DL Albumin 4.4 3.2-4.5 GM/DL Procalcitonin 0.01 <0.10 NG/ML Serum Test, Qualitative NEGATIVE NEGATIVE Influenza Type A (RT-PCR) Not Detected Not Detecte Influenza Type B (RT-PCR) Not Detected Not Detecte SARS-CoV-2 RNA (RT-PCR) Not Detected Not Detecte My Orders Orders - ANTONINA WINTER APRN Covid 19 Inhouse Test (07/04/21 10:59) Influenza A And B By Pcr (07/04/21 10:59) Cbc With Automated Diff (07/04/21 11:06) Comprehensive Metabolic Panel (07/04/21 11:06) Hcg,Qualitative Serum (07/04/21 11:06) Ed Iv/Invasive Line Start (07/04/21 11:06) Drug Screen Stat (Urine) (07/04/21 11:06) Ua Culture If Indicated (07/04/21 11:06) Hs C Reactive Protein (07/04/21 11:06) Procalcitonin (Pct) (07/04/21 11:06) Lactated Ringers (Lr 1000 Ml Iv Solution (07/04/21 11:15) Ketorolac Injection (Toradol Injection) (07/04/21 11:15) Lorazepam Injection (Ativan Injection) (07/04/21 11:15) Ct Angio Chest W (07/04/21 11:10) Iohexol Injection (Omnipaque 350 Mg/Ml 1 (07/04/21 11:30) Ns (Ivpb) (Sodium Chloride 0.9% Ivpb Bag (07/04/21 11:30) Medications Given in ED Current Medications Medications Dose Ordered Sig/Lakisha Route Start Time Stop Time Status Last Admin Dose Admin Iohexol 100 ml ONCE ONCE IV 07/04/21 11:30 07/04/21 11:31 DC 07/04/21 12:02 84 ML Ketorolac Tromethamine 15 mg ONCE ONCE IVP 07/04/21 11:15 07/04/21 11:16 DC 07/04/21 11:39 15 MG Lorazepam 1 mg ONCE ONCE IVP 07/04/21 11:15 07/04/21 11:16 DC 07/04/21 11:39 1 MG Sodium Chloride 100 ml ONCE ONCE IV 07/04/21 11:30 07/04/21 11:31 DC 07/04/21 12:02 80 ML Vital Signs/I&O 07/04/21 07/04/21 10:58 10:58 Temp 36.3 Pulse 104 Resp 18 B/P (MAP) 153/106 (122) Pulse Ox 96 O2 Delivery Room Air Blood Pressure Mean: 122 Departure Communication (Admissions) NAME: JAMIR MENDOZA [facility] REC#: [id number] PT STATUS: REG ER : 1995 PHYSICIAN: ANTONINA WINTER APRN ADMIT DATE: 07/04/21/ER Draft Date of Exam:07/04/21 CT ANGIO CHEST W PROCEDURE: CT angiography of the chest with contrast. TECHNIQUE: Multiple contiguous axial images were obtained through the chest after uneventful bolus administration of intravenous contrast. 3D reconstructed CTA MIP acquisitions were also performed. Auto Exposure Controls were utilized during the CT exam to meet ALARA standards for radiation dose reduction. DATE: July 04, 2021. COMPARISON: Chest radiographs March 08, 2021. INDICATION: 26-year-old female, chest pain. FINDINGS: There is no identified pulmonary nodule or lung mass. There is very mild dependent atelectasis. There is no otherwise noted focal airspace consolidation. There is no pneumothorax. There is no pleural effusion. The central airways are patent. There is no identified pulmonary embolus. The heart is not enlarged. There is no pericardial effusion. There is no identified mediastinal, hilar, or axillary lymph node meeting CT size criteria for adenopathy. The imaged portions of the upper abdomen are unremarkable. There is no identified acute bony abnormality. IMPRESSION: CT CHEST. 1. No identified pulmonary embolus or other acute cardiopulmonary abnormality. Dictated on workstation # [id number] Dict: 07/04/21 1215 Trans: 07/04/21 1226 CV [id number] Interpreted by: PRABHU LYNN MD Electronically signed by: Impression Primary Impression: Bronchitis Disposition: 01 HOME, SELF-CARE Condition: Stable Departure-Patient Inst. Decision time for Depature: 11:10 Referrals: [facility] (PCP/Family) Primary Care Physician Patient Instructions: Acute Bronchitis, Adult (DC) Add. Discharge Instructions: 1. Cough medication as directed. Return to ER for any concerns. All discharge instructions reviewed with patient and/or family. Voiced understanding. Scripts Guaifenesin/Codeine Phosphate (Guaifenesin-Codeine Syrup) 5 Ml Liquid 5 ML PO Q4H PRN for COUGH, #60 ML Prov: ANTONINA WINTER APRN 07/04/21 Prednisone (Prednisone) 20 Mg Tab 40 MG PO DAILY, #6 TAB 0 Refills Prov: ANTONINA WINTER APRN 07/04/21 Work/School Note: Work Release Form Date Seen in the Emergency Department: Jul 04, 2021 Return to Work: Jul 05, 2021 ANTONINA WINTER APRN Jul 04, 2021 11:10
[2021-07-04 11:15] LABS: BASOPHILS % (AUTO) 1 % (0-10); EOSINOPHILS # (AUTO) 0.8 10^3/uL (0.0-0.3); EOSINOPHILS % (AUTO) 10 % (0-10); HEMATOCRIT 41 % (35-52); HEMOGLOBIN 13.1 g/dL (11.5-16.0); LYMPHOCYTES # (AUTO) 2.3 X 10^3 (1.0-4.0); LYMPHOCYTES % (AUTO) 31 % (12-44); MEAN CORPUSCULAR HEMOGLOBIN 26 pg (25-34); MEAN CORPUSCULAR HGB CONC 32 g/dL (32-36); MEAN CORPUSCULAR VOLUME 81 fL (80-99); MEAN PLATELET VOLUME 10.2 fL (9.0-12.2); MONOCYTES # (AUTO) 0.5 X 10^3 (0.0-1.0); MONOCYTES % (AUTO) 6 % (0-12); NEUTROPHILS # (AUTO) 3.9 X 10^3 (1.8-7.8); NEUTROPHILS % (AUTO) 52 % (42-75); PLATELET COUNT 393 10^3/uL (130-400); WHITE BLOOD COUNT 7.4 10^3/uL (4.3-11.0)
[2021-07-04] MEDS ORDERED: LACTATED RINGERS 1,000 ML IV SCH (11:15)
[2021-07-04] MEDS ORDERED: KETOROLAC 30 MG/ML VIAL IVP ONE (11:15)
[2021-07-04] MEDS ORDERED: LORazepam INJ 2 MG/ML (ATIVAN) VIAL IVP ONE (11:15)
[2021-07-04 11:23] LABS: ALBUMIN 4.4 GM/DL (3.2-4.5)
[2021-07-04 11:25] LABS: CALCIUM 9.3 MG/DL (8.5-10.1)
[2021-07-04 11:26] LABS: TOTAL PROTEIN 7.2 GM/DL (6.4-8.2)
[2021-07-04 11:28] LABS: BILIRUBIN,TOTAL 0.4 MG/DL (0.1-1.0)
[2021-07-04 11:29] LABS: CREATININE SERUM 0.76 MG/DL (0.60-1.30)
[2021-07-04] MEDS ORDERED: IOHEXOL 350 MG/ML 100 ML (OMNIPAQUE 350) VIAL IV ONE (11:30)
[2021-07-04] MEDS ORDERED: NS 100 ML (IVPB) BAG IV ONE (11:30)
[2021-07-04] MEDS ORDERED: PRD20T PO (12:13)
[2021-07-04] MEDS ORDERED: GUAI5LIQ PO (12:13)
--- NOTE | 2021-07-04 12:27 | Diagnostic Imaging Report ---
PROCEDURE: CT angiography of the chest with contrast. TECHNIQUE: Multiple contiguous axial images were obtained through the chest after uneventful bolus administration of intravenous contrast. 3D reconstructed CTA MIP acquisitions were also performed. Auto Exposure Controls were utilized during the CT exam to meet ALARA standards for radiation dose reduction. DATE: July 04, 2021. COMPARISON: Chest radiographs March 08, 2021. INDICATION: 26-year-old female, chest pain. FINDINGS: There is no identified pulmonary nodule or lung mass. There is very mild dependent atelectasis. There is no otherwise noted focal airspace consolidation. There is no pneumothorax. There is no pleural effusion. The central airways are patent. There is no identified pulmonary embolus. The heart is not enlarged. There is no pericardial effusion. There is no identified mediastinal, hilar, or axillary lymph node meeting CT size criteria for adenopathy. The imaged portions of the upper abdomen are unremarkable. There is no identified acute bony abnormality. IMPRESSION: CT CHEST. 1. No identified pulmonary embolus or other acute cardiopulmonary abnormality. Dictated by: Dictated on workstation # [id number]
[2021-07-04 12:43] VITALS: BP 124/78
== END 2021-07-04 12:43 | disposition home or self-care (01) ==
LOC: EDUNIT# 10:52 → ER 10:54
DX: J40 Bronchitis, not specified as acute or chronic (principal); E66.9 Obesity, unspecified; Z68.41 Body mass index [BMI] 40.0-44.9, adult; Z20.822 Contact with and (suspected) exposure to COVID-19
CPT/HCPCS: 36415; 71275; 80053; 84145; 84703; 85025; 86141; 87636; 96361; 96374; 96375

== ENCOUNTER 2022-06-24 14:02 | Emergency (ER) | payer MEDICAID ==
[~2022-06-24] VITALS: Ht 162.5 cm; Wt 111.0 kg
[~2022-06-24 14:02] MED LIST changes: +GUAI5LIQ PO
[2022-06-24] MEDS ORDERED: methylPREDNISolone 125 MG (Solu-MEDROL) VIAL IV STA (14:19)
--- NOTE | 2022-06-24 14:27 | ED Dyspnea ---
General Stated Complaint: SOA - CHEST PAIN - COUGH - CONGESTION Source of Information: Patient Exam Limitations: No Limitations (ELISA BERNAL APRN) History of Present Illness Date Seen by Provider: Jun 24, 2022 Time Seen by Provider: 14:13 Initial Comments 27-year-old female presents to the ED with complaints of feeling sick for the last 3 weeks. States she tested for positive for strep 3 weeks ago and was on antibiotic for 10 days. States she went back to the [facility] clinic after finishing the antibiotic, and was placed on steroids and a Z-Arie for continued cough. Reports she returned yesterday was started again on steroids and an inhaler for the continued cough and shortness of breath. States she is here if she feels like she is not getting better. States she used albuterol nebulizer at 10 AM which provided some relief. Denies history of asthma. She does not use tobacco, does smoke marijuana. Has lived with a smoker for 60 years. She has had 3 blood clots in her lungs previously, states they think they were due to or control. She is not on any blood thinners now. Only medication she takes is vitamin C, steroid, and albuterol inhaler. Other past medical history includes MRSA, and bipolar. Reports feeling hot and cold. Denies chest pain, abdominal pain, nausea, vomiting. States she has also been having diarrhea for the last month, she is already been seen for this, and is supposed to give a stool sample for testing. (ELISA BERNAL APRN) Allergies and Home Medications Allergies Coded Allergies: No Known Drug Allergies (Unverified , 06/24/22) Patient Home Medication List Home Medication List Reviewed: Yes (ELISA BERNAL APRN) Home Medication List Reviewed: Yes (CUATE VILLASENOR MD) Amoxicillin/Potassium Clav (Amox Tr-K Clv 875-125 mg Tab) 1 Each Tablet, 875 MG PO BID WITH MEALS Prescribed by: VALDEMAR BARTON on 05/24/20 1242 Benzocaine/Menthol (Dermoplast Pain Relieving Wilsey) 78 Gm Aerosol, 56 ML TP UD PRN for PAIN- SEE INSTRUCTIONS Prescribed by: VALDEMAR BARTON on 05/24/20 1242 Diclofenac Sodium (Voltaren Arthritis Pain) 20 Gm Gel..gram., 1 GM TP TID Prescribed by: ANTONINA WINTER on 01/29/21 1211 Docusate Sodium (Dok) 100 Mg Capsule, 100 MG PO BID PRN for CONSTIPATION-1ST L INE Prescribed by: VALDEMAR BARTON on 05/24/20 1242 Enoxaparin Sodium (Enoxaparin Sodium) 40 Mg/0.4 Ml Syringe, 0 MG SQ Q24H Prescribed by: VALDEMAR BARTON on 05/24/20 1242 Gabapentin (Gabapentin) 100 Mg Capsule, 200 MG PO Q8H PRN for PAIN-MODERATE (5- 7) Prescribed by: ANTONINA WINTER on 11/04/20 1137 Guaifenesin/Codeine Phosphate (Guaifenesin-Codeine Syrup) 5 Ml Liquid, 5 ML PO Q4H PRN for COUGH Prescribed by: ANTONINA WINTER on 07/04/21 1213 Hydrocodone/Acetaminophen (Hydrocodone-Acetamin 5-325 mg) 1 Each Tablet, 1 TAB PO Q6H PRN for PAIN-MODERATE (5-7) Prescribed by: ANY BUSH on 09/23/20 1036 Ibuprofen (Ibu) 600 Mg Tablet, 600 MG PO Q6HR Prescribed by: VALDEMAR BARTON on 05/24/20 1242 Ipratropium/Albuterol Sulfate (Iprat-Albut 0.5-3(2.5) mg/3 ml) 0.5 Mg-3 Mg (2.5 Mg Base)/3 Ml Ampul.neb, 3 ML IH Q6H PRN for SHORTNESS OF BREATH Prescribed by: Elisa Bernal on 06/24/22 1550 Meloxicam (Meloxicam) 7.5 Mg Tablet, 7.5 MG PO DAILY Prescribed by: CUATE VILLASENOR on 10/24/20 0049 Methylprednisolone (Medrol) 4 Mg Tab.ds.pk, 4 MG PO UD Prescribed by: JANENE DICKEY on 08/08/20 0028 Naproxen (Naprosyn) 500 Mg Tablet, 500 MG PO BID PRN for PAIN-MODERATE (5-7) Prescribed by: ANTONINA WINTER on 12/29/20 1654 Naproxen (Naprosyn) 500 Mg Tablet, 500 MG PO BID Prescribed by: ANTONINA WINTER on 03/25/21 2119 Nitrofurantoin Macrocrystal (Nitrofurantoin) 100 Mg Capsule, 100 MG PO BID Prescribed by: YE JOEL on 12/02/20 1339 Ondansetron (Ondansetron Odt) 4 Mg Tab.rapdis, 4 MG PO Q6H PRN for NAUSEA-1ST LINE Prescribed by: JOANNA ANNE on 10/13/20 1815 Pantoprazole Sodium (Protonix) 40 Mg Tablet.dr, 40 MG PO DAILY Prescribed by: JANENE DICKEY on 08/08/20 0028 Prednisone (Prednisone) 20 Mg Tab, 40 MG PO DAILY Prescribed by: ANTONINA WINTER on 09/06/20 2019 Prednisone (Prednisone) 20 Mg Tab, 40 MG PO DAILY Prescribed by: ANTONINA WINTER on 11/04/20 1137 Prednisone (Prednisone) 20 Mg Tab, 40 MG PO DAILY Prescribed by: YE JOEL on 12/02/20 1335 Prednisone (Prednisone) 20 Mg Tab, 40 MG PO DAILY Prescribed by: ANTONINA WINTER on 07/04/21 1213 Tramadol HCl (Ultram) 50 Mg Tablet, 50 MG PO Q6H PRN for PAIN-BREAKTHROUGH Prescribed by: ALCIDES CONNELLY on 09/19/20 1215 Tramadol HCl (Tramadol HCl) 50 Mg Tablet, 50 MG PO Q6H PRN for PAIN Prescribed by: CUATE VILLASENOR on 10/24/20 0050 Tramadol HCl (Tramadol HCl) 50 Mg Tablet, 50 MG PO Q6H PRN for PAIN Prescribed by: YE JOEL on 12/02/20 1336 Tramadol HCl (Ultram) 50 Mg Tablet, 50 MG PO Q6H PRN for PAIN-MODERATE (5-7) Prescribed by: ANTONINA WINTER on 12/29/20 1654 Tramadol HCl (Ultram) 50 Mg Tablet, 50 MG PO Q6H PRN for PAIN-MODERATE (5-7) Prescribed by: ANTONINA WINTER on 01/29/21 1108 Review of Systems Review of Systems Constitutional: see HPI (ELISA BERNAL APRN) Past Shyeenx-Dohddf-Pvizzw Hx Immunizations Up To Date First/Initial COVID19 Vaccinat: NO Second COVID19 Vaccination Rajeev: NO Third COVID19 Vaccination Date: NO (ELISA BERNAL LIFE SCIENCE RESEARCH ASSISTANT) Seasonal Allergies Seasonal Allergies: No (ELISA BERNAL LIFE SCIENCE RESEARCH ASSISTANT) Past Medical History Surgery/Hospitalization HX: SX: REMOVAL OF EXTRA THUMB PMH: BULGING DISC LOWER BACK bipolar, anxiety, depression sciatica Surgeries: Yes Tubal Ligation Respiratory: Yes (P.E. 01/2020 WHILE ) Pulmonary Embolism Currently Using CPAP: No Currently Using BIPAP: No Cardiac: Yes (P.E. 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 No Pertinent Family Hx MOVED HERE IN APRIL 2020 FROM [place], [place] WITH MALE S.O. AND CHILDREN DUE TO HOMELESSNESS PT IS AB 1 PT HAD P.E. 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 ADDITIONALLY, PT HAD GESTATIONAL DIABETES (ELISA BERNAL APRN) Physical Exam Vital Signs Vital Signs - First Documented (CUATE VILLASENOR MD) Vital Signs Capillary Refill : (ELISA BERNAL APRN) Height, Weight, BMI Height: '" Weight: lbs. oz. kg; 43.00 BMI Method: General Appearance: Mild Distress Neck: Non Tender, Supple Respiratory: Respiratory Distress (Mild), Other (Coarse breath sounds throughout) Cardiovascular: No Edema, No Gallop, No JVD, No Murmur, Tachycardia Extremity: Normal Inspection, Normal Range of Motion Neurologic/Psychiatric: Alert, Oriented x3, Normal Mood/Affect Skin: Normal Color, Warm/Dry (ELISA BERNAL APRN) Progress/Results/Core Measures Results/Orders Lab Results Laboratory Tests Test 06/24/22 14:15 06/24/22 14:46 Range/Units Influenza Type A (RT-PCR) Not Detected Not Detecte Influenza Type B (RT-PCR) Not Detected Not Detecte SARS-CoV-2 RNA (RT-PCR) Not Detected Not Detecte White Blood Count 7.2 4.3-11.0 10^3/uL Red Blood Count 4.73 3.80-5.11 10^6/uL Hemoglobin 12.9 11.5-16.0 g/dL Hematocrit 39 35-52 % Mean Corpuscular Volume 83 80-99 fL Mean Corpuscular Hemoglobin 27 25-34 pg Mean Corpuscular Hemoglobin Concent 33 32-36 g/dL Red Cell Distribution Width 14.3 10.0-14.5 % Platelet Count 265 130-400 10^3/uL Mean Platelet Volume 10.1 9.0-12.2 fL Immature Granulocyte % (Auto) 1 % Neutrophils (%) (Auto) 61 42-75 % Lymphocytes (%) (Auto) 29 12-44 % Monocytes (%) (Auto) 9 0-12 % Eosinophils (%) (Auto) 0 0-10 % Basophils (%) (Auto) 0 0-10 % Neutrophils # (Auto) 4.4 1.8-7.8 10^3/uL Lymphocytes # (Auto) 2.1 1.0-4.0 10^3/uL Monocytes # (Auto) 0.6 0.0-1.0 10^3/uL Eosinophils # (Auto) 0.0 0.0-0.3 10^3/uL Basophils # (Auto) 0.0 0.0-0.1 10^3/uL Immature Granulocyte # (Auto) 0.0 0.0-0.1 10^3/uL D-Dimer < 0.27 0.00-0.49 UG/ML Sodium Level 140 135-145 MMOL/L Potassium Level 3.7 3.6-5.0 MMOL/L Chloride Level 106 98-107 MMOL/L Carbon Dioxide Level 22 21-32 MMOL/L Anion Gap 12 5-14 MMOL/L Blood Urea Nitrogen 13 7-18 MG/DL Creatinine 0.70 0.60-1.30 MG/DL Estimat Glomerular Filtration Rate 120 BUN/Creatinine Ratio 19 Glucose Level 85 70-105 MG/DL Calcium Level 9.3 8.5-10.1 MG/DL Corrected Calcium 9.2 8.5-10.1 MG/DL Magnesium Level 1.8 1.6-2.4 MG/DL Total Bilirubin 0.2 0.1-1.0 MG/DL Aspartate Amino Transf (AST/SGOT) 20 5-34 U/L Alanine Aminotransferase (ALT/SGPT) 28 0-55 U/L Alkaline Phosphatase 50 40-136 U/L Total Protein 7.2 6.4-8.2 GM/DL Albumin 4.1 3.2-4.5 GM/DL (CUATE VILLASENOR MD) Vital Signs/I&O 06/24/22 06/24/22 06/24/22 14:05 14:05 15:55 Temp 36.9 Pulse 113 107 Resp 18 16 B/P (MAP) 132/100 (111) 165/107 Pulse Ox 98 97 O2 Delivery Room Air Room Air Room Air (CUATE VILLASENOR MD) Progress Progress Note #1: Time: 14:26 Progress Note Patient seen and evaluated, resting in bed, mild distress. Based on exam and symptoms, concern for bronchitis, asthma/COPD exacerbation, PE, pneumonia. Work-up initiated including CBC, CMP, magnesium, D-dimer, chest x-ray. Solu- Medrol and DuoNeb ordered. Progress Note #2: Time: 15:48 Progress Note Labs and x-ray reviewed. CBC grossly normal, WBC 7.2, hemoglobin 12.9, hematocrit 39. CMP grossly normal, potassium 3.7, creatinine 0.70, GFR 120. Magnesium 1.8. D-dimer negative. Wells score 3 points for elevated heart rate and previous PE which place her at a moderate risk. A CT angio chest was considered, but deferred because recommendation for moderate risk Wells score states if the D-dimer is negative, a CT angio does not need to be completed. COVID and flu negative. Results discussed with patient. She states she is feeling better after the DuoNeb. Patient instructed to continue the Medrol Dosepak and albuterol inhaler. Will prescribe short course of DuoNebs. Discharge directions and return precautions provided. (ELISA BERNAL APRN) Initial ECG Impression Date: Jun 24, 2022 Initial ECG Impression Time: 14:07 Initial ECG Rate: 104 Initial ECG Rhythm: S.Tach Initial ECG Intervals: Normal Initial ECG Impression: Normal Initial ECG Comparisson: Unchanged (ELISA BERNAL APRN) Departure Impression Primary Impression: Bronchitis Disposition: 01 HOME, SELF-CARE Condition: Stable Departure-Patient Inst. Decision time for Depature: 15:49 (ELISA BERNAL APRN) Referrals: [facility] (PCP/Family) Primary Care Physician Patient Instructions: Acute Bronchitis, Adult (DC) Add. Discharge Instructions: Continue Medrol Dosepak as prescribed. Continue albuterol inhaler as prescribed. Use DuoNeb nebulizers as needed for shortness of breath, do not use more than 4 times a day, approximately every 6 hours. Follow-up with your primary care provider. Return for worsening shortness of breath, chest pain, or any other new, concerning, or worsening symptoms. Scripts Ipratropium/Albuterol Sulfate (Iprat-Albut 0.5-3(2.5) mg/3 ml) 0.5 Mg-3 Mg (2.5 Mg Base)/3 Ml Ampul.neb 3 ML IH Q6H PRN for SHORTNESS OF BREATH for 7 Days, #28 EACH 0 Refills Prov: ELISA BERNAL APRN 06/24/22 Work/School Note: Work Release Form Date Seen in the Emergency Department: Jun 24, 2022 Return to Work: Jun 25, 2022 Restrictions: No Restrictions ELISA BERNAL APRN Jun 24, 2022 14:27 CUATE VILLASENOR MD Jun 25, 2022 06:41
[2022-06-24] MEDS ORDERED: methylPREDNISolone 125 MG (Solu-MEDROL) VIAL IM ONE (14:30)
[2022-06-24] MEDS ORDERED: RT-ALBUTEROL/IPRATROPIUM 3 ML (DUONEB) VIAL INH ONE (14:30)
[2022-06-24 14:57] LABS: BASOPHILS % (AUTO) 0 % (0-10); EOSINOPHILS % (AUTO) 0 % (0-10); HEMATOCRIT 39 % (35-52); HEMOGLOBIN 12.9 g/dL (11.5-16.0); LYMPHOCYTES # (AUTO) 2.1 10^3/uL (1.0-4.0); LYMPHOCYTES % (AUTO) 29 % (12-44); MEAN CORPUSCULAR HEMOGLOBIN 27 pg (25-34); MEAN CORPUSCULAR HGB CONC 33 g/dL (32-36); MEAN CORPUSCULAR VOLUME 83 fL (80-99); MEAN PLATELET VOLUME 10.1 fL (9.0-12.2); MONOCYTES # (AUTO) 0.6 10^3/uL (0.0-1.0); MONOCYTES % (AUTO) 9 % (0-12); NEUTROPHILS # (AUTO) 4.4 10^3/uL (1.8-7.8); NEUTROPHILS % (AUTO) 61 % (42-75); PLATELET COUNT 265 10^3/uL (130-400); WHITE BLOOD COUNT 7.2 10^3/uL (4.3-11.0)
--- NOTE | 2022-06-24 15:08 | Diagnostic Imaging Report ---
EXAM: Chest 1 view, AP/PA only INDICATION: Shortness of breath. COMPARISON: 12/26/2020. FINDINGS: Normal heart size and central pulmonary vascularity. No focal pulmonary opacity. No pleural effusion or pneumothorax. No acute osseous finding. No significant change. IMPRESSION: No acute cardiopulmonary finding. Dictated by: Dictated on workstation # [id number]
[2022-06-24 15:24] LABS: ALBUMIN 4.1 GM/DL (3.2-4.5); POTASSIUM 3.7 MMOL/L (3.6-5.0)
[2022-06-24 15:25] LABS: CALCIUM 9.3 MG/DL (8.5-10.1)
[2022-06-24 15:26] LABS: TOTAL PROTEIN 7.2 GM/DL (6.4-8.2)
[2022-06-24 15:28] LABS: BILIRUBIN,TOTAL 0.2 MG/DL (0.1-1.0)
[2022-06-24 15:30] LABS: CREATININE SERUM 0.7 MG/DL (0.60-1.30)
[2022-06-24 15:33] LABS: MAGNESIUM 1.8 MG/DL (1.6-2.4)
[2022-06-24] MEDS ORDERED: IPRA3AMP31 IH (15:50)
[2022-06-24 15:55] VITALS: BP 165/107
== END 2022-06-24 15:55 | disposition home or self-care (01) ==
LOC: EDUNIT# 14:02 → ER 14:03
DX: J40 Bronchitis, not specified as acute or chronic (principal); E66.9 Obesity, unspecified; Z68.41 Body mass index [BMI] 40.0-44.9, adult; Z28.311 Partially vaccinated for COVID-19; Z20.822 Contact with and (suspected) exposure to COVID-19
CPT/HCPCS: 36415; 71045; 80053; 83735; 85025; 85379; 87636; 93005; 93041

== ENCOUNTER 2022-08-07 18:17 | Emergency (ER) | payer MEDICAID ==
[~2022-08-07] VITALS: Ht 160 cm; Wt 118.0 kg
[~2022-08-07 18:17] MED LIST changes: +IPRA3AMP31 IH
--- NOTE | 2022-08-07 18:49 | ED Integumentary General ---
General Chief Complaint: Skin/Wound Problems Stated Complaint: HUIRTS TO MOVE LEFT ARM Source: patient Exam Limitations: no limitations History of Present Illness Date Seen by Provider: Aug 07, 2022 Time Seen by Provider: 18:42 Initial Comments Here with report of abscess to the area of the left shoulder. States that she has been clean on methamphetamine for the last 2 and half years. Had a relapse last week. She was injecting and thinks she got outside the vein. She has had this before. Denies fever or chills. Does complain of pain when moving the arm due to swelling at the site on the anterior mid shoulder region above the axilla. Does have redness and swelling at site. Timing/Duration: week, getting worse Severity: moderate Location: extremities (Left shoulder anterior) Possible Cause: other Associated Symptoms: change in skin texture, edema; No fever, No rash; swelling/mass/lumps Allergies and Home Medications Allergies Coded Allergies: No Known Drug Allergies (Unverified , 06/24/22) Patient Home Medication List Home Medication List Reviewed: Yes Amoxicillin/Potassium Clav (Amox Tr-K Clv 875-125 mg Tab) 1 Each Tablet, 875 MG PO BID WITH MEALS Prescribed by: VALDEMAR BARTON on 05/24/20 1242 Benzocaine/Menthol (Dermoplast Pain Relieving Coram) 78 Gm Aerosol, 56 ML TP UD PRN for PAIN- SEE INSTRUCTIONS Prescribed by: VALDEMAR BARTON on 05/24/20 1242 Diclofenac Sodium (Voltaren Arthritis Pain) 20 Gm Gel..gram., 1 GM TP TID Prescribed by: ANTONINA WINTER on 01/29/21 1211 Docusate Sodium (Dok) 100 Mg Capsule, 100 MG PO BID PRN for CONSTIPATION-1ST LINE Prescribed by: VALDEMAR BARTON on 05/24/20 1242 Enoxaparin Sodium (Enoxaparin Sodium) 40 Mg/0.4 Ml Syringe, 0 MG SQ Q24H Prescribed by: VALDEMAR BARTON on 05/24/20 1242 Gabapentin (Gabapentin) 100 Mg Capsule, 200 MG PO Q8H PRN for PAIN-MODERATE (5- 7) Prescribed by: ANTONINA WINTER on 11/04/20 1137 Guaifenesin/Codeine Phosphate (Guaifenesin-Codeine Syrup) 5 Ml Liquid, 5 ML PO Q4H PRN for COUGH Prescribed by: ANTONINA WINTER on 07/04/21 1213 Hydrocodone/Acetaminophen (Hydrocodone-Acetamin 5-325 mg) 1 Each Tablet, 1 TAB PO Q6H PRN for PAIN-MODERATE (5-7) Prescribed by: ANY BUSH on 09/23/20 1036 Ibuprofen (Ibu) 600 Mg Tablet, 600 MG PO Q6HR Prescribed by: VALDEMAR BARTON on 05/24/20 1242 Ipratropium/Albuterol Sulfate (Iprat-Albut 0.5-3(2.5) mg/3 ml) 0.5 Mg-3 Mg (2.5 Mg Base)/3 Ml Ampul.neb, 3 ML IH Q6H PRN for SHORTNESS OF BREATH Prescribed by: Elisa Rivera on 06/24/22 1550 Meloxicam (Meloxicam) 7.5 Mg Tablet, 7.5 MG PO DAILY Prescribed by: CUATE VILLASENOR on 10/24/20 0049 Methylprednisolone (Medrol) 4 Mg Tab.ds.pk, 4 MG PO UD Prescribed by: JANENE DICKEY on 08/08/20 0028 Naproxen (Naprosyn) 500 Mg Tablet, 500 MG PO BID PRN for PAIN-MODERATE (5-7) Prescribed by: ANTONINA WINTER on 12/29/20 1654 Naproxen (Naprosyn) 500 Mg Tablet, 500 MG PO BID Prescribed by: ANTONINA WINTER on 03/25/21 2119 Nitrofurantoin Macrocrystal (Nitrofurantoin) 100 Mg Capsule, 100 MG PO BID Prescribed by: YE JOEL on 12/02/20 1339 Ondansetron (Ondansetron Odt) 4 Mg Tab.rapdis, 4 MG PO Q6H PRN for NAUSEA-1ST LINE Prescribed by: JOANNA ANNE on 10/13/20 1815 Pantoprazole Sodium (Protonix) 40 Mg Tablet.dr, 40 MG PO DAILY Prescribed by: JANENE DICKEY on 08/08/20 0028 Prednisone (Prednisone) 20 Mg Tab, 40 MG PO DAILY Prescribed by: ANTONINA WINTER on 09/06/20 2019 Prednisone (Prednisone) 20 Mg Tab, 40 MG PO DAILY Prescribed by: ANTONINA WINTER on 11/04/20 1137 Prednisone (Prednisone) 20 Mg Tab, 40 MG PO DAILY Prescribed by: YE JOEL on 12/02/20 1335 Prednisone (Prednisone) 20 Mg Tab, 40 MG PO DAILY Prescribed by: ANTONINA WINTER on 07/04/21 1213 Tramadol HCl (Ultram) 50 Mg Tablet, 50 MG PO Q6H PRN for PAIN-BREAKTHROUGH Prescribed by: ALCIDES CONNELLY on 09/19/20 1215 Tramadol HCl (Tramadol HCl) 50 Mg Tablet, 50 MG PO Q6H PRN for PAIN Prescribed by: CUATE VILLASENOR on 10/24/20 0050 Tramadol HCl (Tramadol HCl) 50 Mg Tablet, 50 MG PO Q6H PRN for PAIN Prescribed by: YE JOEL on 12/02/20 1336 Tramadol HCl (Ultram) 50 Mg Tablet, 50 MG PO Q6H PRN for PAIN-MODERATE (5-7) Prescribed by: ANTONINA WINTER on 12/29/20 1654 Tramadol HCl (Ultram) 50 Mg Tablet, 50 MG PO Q6H PRN for PAIN-MODERATE (5-7) Prescribed by: ANTONINA WINTER on 01/29/21 1108 Review of Systems Review of Systems Constitutional: No chills, No fever Respiratory: no symptoms reported Cardiovascular: no symptoms reported Skin: see HPI, change in color, lesions Past Eynaoxw-Lokxxu-Clwylj Hx Patient Social History Tobacco Use?: No Use of E-Cig and/or Vaping dev: Yes E-Cig or Vaping type used: Marijuana Alcohol Use?: Yes Alcohol Frequency: Rarely Immunizations Up To Date First/Initial COVID19 Vaccinat: once Second COVID19 Vaccination Rajeev: NO Third COVID19 Vaccination Date: NO Seasonal Allergies Seasonal Allergies: No Past Medical History Surgery/Hospitalization HX: SX: REMOVAL OF EXTRA THUMB, tubal PMH: BULGING DISC LOWER BACK bipolar, anxiety, depression sciatica Surgeries: Yes Tubal Ligation Respiratory: Yes (P.E. 01/2020 WHILE ) Pulmonary Embolism Currently Using CPAP: No Currently Using BIPAP: No Cardiac: Yes (P.E. 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 No Pertinent Family Hx MOVED HERE IN APRIL 2020 FROM [place], [place] WITH MALE S.O. AND CHILDREN DUE TO HOMELESSNESS PT IS AB 1 PT HAD P.E. 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 ADDITIONALLY, PT HAD GESTATIONAL DIABETES Physical Exam Vital Signs Vital Signs - First Documented 08/07/22 18:30 Temp 36.9 Pulse 75 Resp 16 B/P (MAP) 109/75 (86) Pulse Ox 97 O2 Delivery Room Air Capillary Refill : General Appearance: WD/WN, no apparent distress Cardiovascular: regular rate, rhythm, no murmur Respiratory: lungs clear, normal breath sounds Skin: warm/dry Skin Problem Location: upper extremities (Left anterior shoulder above axilla) Skin Problem Character: abscess, erythema, other (4 x 4 centimeter area of induration with central fluctuance of at least 1 to 2 cm surrounded by 1 to 2 cm of erythema) Procedures/Interventions I&D : Site: Left shoulder anterior Blade Size: 11 I & D Procedure: betadine prep, sterile drapes applied, sterile dressing a pplied, gauze wick placed Packing/Drain: Idoform 1 Progress Prepped with iodine and anesthetized with 2% with epi approximately 10 mL surrounding wound and local infiltration. We did achieve excellent local an esthesia. Wound opened with 11 blade approximately 2 cm. Loculations broken up and culture obtained. Flushed with saline. Cleaned with gauze and pack with 1 inch iodoform. Covered with sterile dressing and secured with tape. Tolerated procedure well with no complications. Progress/Results/Core Measures Results/Orders My Orders Orders - CAITLIN CAMPOS MD Lidocaine/Epi 2% 1:100,000 (Xylocaine/Ep (08/07/22 19:00) Wound Culture (08/07/22 18:49) Lidocaine/Epi Mpf 2% 1:200,000 (Xylocain (08/07/22 18:56) Medications Given in ED Current Medications Medications Dose Ordered Sig/Lakisha Route Start Time Stop Time Status Last Admin Dose Admin Lidocaine/ Epinephrine 20 ml STK-MED ONCE .ROUTE 08/07/22 18:56 08/07/22 19:00 DC 08/07/22 19:03 20 ML Vital Signs/I&O 08/07/22 18:30 Temp 36.9 Pulse 75 Resp 16 B/P (MAP) 109/75 (86) Pulse Ox 97 O2 Delivery Room Air Progress Progress Note : Progress Note Seen and evaluated. Does have abscess to the left anterior shoulder that we will need drainage. We will proceed with I&D. 1922: I&D completed and culture obtained. Tolerated procedure well with no complication. Discharged home with return precautions. Patient verbalized understanding of instructions and agreement with plan. OTC meds and prescription management discussed. Follow-up instructions discussed. Departure Impression Primary Impression: Abscess Additional Impression: Encounter for incision and drainage procedure Disposition: HOME, SELF-CARE Condition: Stable Departure-Patient Inst. Decision time for Depature: 19:22 [place] [facility] [place] Primary Care Physician Patient Instructions: Abscess Incision and Drainage ED Add. Discharge Instructions: All discharge instructions reviewed with patient and/or family. Voiced understanding. Take medications as directed. You may take the prescribed pain medicine as indicated. If you are not taking that then you may take Tylenol/acetaminophen 1000 mg every 6-8 hours as needed for pain. Do not take both at the same time as they both have acetaminophen in them. You may take ibuprofen 600 mg every 8 hours as needed for pain as well. Keep wound clean. You will return in 2 days for wound recheck and packing removal. If packing falls out, clean wound with fresh water and cover with dressing. Return for worse pain, fever, vomiting, increasing redness or foul-smelling drainage or other concerns as needed. Scripts Sulfamethoxazole/Trimethoprim (Bactrim Ds Tablet) 1 Each Tablet 1 EACH PO BID, #14 TAB 0 Refills Prov: CAITLIN CAMPOS MD 08/07/22 Hydrocodone/Acetaminophen (Hydrocodone-Acetamin 5-325 mg) 5 Mg-325 Mg Tablet 1 TAB PO Q6H PRN for PAIN-MODERATE (5-7) for 7 Days, #8 TAB 0 Refills Prov: CAITLIN CAMPOS MD 08/07/22 CAITLIN CAMPOS MD Aug 07, 2022 18:49
[2022-08-07] MEDS ORDERED: LIDOCAINE/EPI 2% 1:200,00 (XYLOCAINE) 20 ML VIAL ONE (18:56)
[2022-08-07] MEDS ORDERED: LIDOCAINE/EPI 2% 1:100,00 (XYLOCAINE) 20 ML VIAL INJ ONE (19:00)
[2022-08-07] MEDS ORDERED: ACHD5005 PO (19:23)
[2022-08-07] MEDS ORDERED: SULF1TAB38 PO (19:23)
[2022-08-07 19:53] VITALS: BP 112/73
== END 2022-08-07 19:53 | disposition home or self-care (01) ==
LOC: EDUNIT# 18:17 → ER 18:19
DX: L02.414 Cutaneous abscess of left upper limb (principal); E66.9 Obesity, unspecified; F17.290 Nicotine dependence, other tobacco product, uncomplicated; Z68.42 Body mass index [BMI] 45.0-49.9, adult; Z28.311 Partially vaccinated for COVID-19
CPT/HCPCS: 10061; 87070; 87205

== ENCOUNTER 2022-08-09 14:42 | Emergency (ER) | payer MEDICAID ==
[~2022-08-09] VITALS: Ht 160 cm; Wt 118.0 kg
[~2022-08-09 14:42] MED LIST changes: +SULF1TAB38 PO
--- NOTE | 2022-08-09 15:05 | ED Suture Removal/Wound Check ---
Suture/Wound Re-check Suture Removal/Wound Recheck : Progress 27-year-old female presents to the ED for a wound check. Patient had an abscess drained from her left shoulder 2 days ago. I remove the packing that was plac ed. Purulent drainage noted. Wound repacked with small amount of iodoform and covered with gauze. Patient instructed to continue changing iodoform daily for the next 2 to 3 days and cover with gauze. Patient reports she still has supplies at home due to this. Patient reports she is still taking her antibiotic, patient instructed to continue antibiotic. General Appearance: WD/WN, no apparent distress Skin Exam: normal color, warm/dry Physical Exam Vital Signs Vital Signs - First Documented 08/09/22 14:49 Temp 36.7 Pulse 90 Resp 18 B/P (MAP) 111/70 Pulse Ox 97 Capillary Refill : General Appearance: WD/WN, no apparent distress Neck: supple, normal inspection Respiratory: no respiratory distress, no accessory muscle use Neurologic/Psychiatric: alert, normal mood/affect Skin: normal color, warm/dry Skin Problem Character: abscess (Drained abscess, purulent drainage, repacked with small amount of iodoform to keep open, covered with gauze dressing.) Departure Impression Primary Impression: Wound check, abscess Disposition: HOME, SELF-CARE Condition: Stable Departure-Patient Inst. Decision time for Depature: 15:05 Referrals: [facility] [place] (PCP/Family) Primary Care Physician Patient Instructions: Wound Incision and Drainage (DC) Add. Discharge Instructions: Change iodoform packing once a day for the next 2 to 3 days. Continue taking your antibiotic as prescribed. Return for redness around the wound, fevers, or any other new, concerning, or worsening symptoms. All discharge instructions reviewed with patient and/or family. Voiced understanding. CHRISTIANO BERNAL APRN Aug 09, 2022 15:05
[2022-08-09 15:09] VITALS: BP 111/70
[2022-08-19] MEDS ORDERED: CIPR-225 PO (15:32)
== END 2022-08-09 15:09 | disposition home or self-care (01) ==
LOC: EDUNIT# 14:42 → ER 14:44
DX: Z48.00 Encounter for change or removal of nonsurgical wound dressing (principal)

== ENCOUNTER 2022-11-06 06:39 | Emergency (ER) | payer MEDICAID ==
[~2022-11-06] VITALS: Ht 160 cm; Wt 110.2 kg
[~2022-11-06 06:39] MED LIST changes: +CIPR-225 PO
--- NOTE | 2022-11-06 06:52 | ED Lower Extremity ---
General Stated Complaint: LEFT LEG PX Source: patient Exam Limitations: no limitations History of Present Illness Date Seen by Provider: Nov 06, 2022 Time Seen by Provider: 06:44 Initial Comments 27-year-old female presents the emergency department today for left knee and thigh pain. Symptoms started on Sunday and have worsened. It started as dull throbbing around her left knee, worse with certain positions including bending the knee. It is now moved up into her thigh. She is concerned because she has a history of DVT x2 with pregnancies. She denies any current . No lower extremity swelling. No injury. No chest pain or shortness of breath. She is not on blood thinning medications. All other systems reviewed and negative except documented per HPI. Voice recognition software was used to help create this chart Allergies and Home Medications Allergies Coded Allergies: No Known Drug Allergies (Unverified , 06/24/22) Patient Home Medication List Home Medication List Reviewed: Yes Amoxicillin/Potassium Clav (Amox Tr-K Clv 875-125 mg Tab) 1 Each Tablet, 875 MG PO BID WITH MEALS Prescribed by: VALDEMAR BARTON on 05/24/20 1242 Benzocaine/Menthol (Dermoplast Pain Relieving [place]) 78 Gm Aerosol, 56 ML TP UD PRN for PAIN- SEE INSTRUCTIONS Prescribed by: VALDEMAR BARTON on 05/24/20 1242 Ciprofloxacin HCl (Cipro) 500 Mg Tablet, 500 MG PO BID Prescribed by: ALCIDES CONNELLY on 08/19/22 1532 Diclofenac Sodium (Voltaren Arthritis Pain) 20 Gm Gel..gram., 1 GM TP TID Prescribed by: ANTONINA WINTER on 01/29/21 1211 Docusate Sodium (Dok) 100 Mg Capsule, 100 MG PO BID PRN for CONSTIPATION-1ST LINE Prescribed by: VALDEMAR BARTON on 05/24/20 1242 Enoxaparin Sodium (Enoxaparin Sodium) 40 Mg/0.4 Ml Syringe, 0 MG SQ Q24H Prescribed by: VALDEMAR BARTON on 05/24/20 1242 Gabapentin (Gabapentin) 100 Mg Capsule, 200 MG PO Q8H PRN for PAIN-MODERATE (5- 7) Prescribed by: ANTONINA WINTER on 11/04/20 1137 Guaifenesin/Codeine Phosphate (Guaifenesin-Codeine Syrup) 5 Ml Liquid, 5 ML PO Q4H PRN for COUGH Prescribed by: ANTONINA WINTER on 07/04/21 1213 Hydrocodone/Acetaminophen (Hydrocodone-Acetamin 5-325 mg) 1 Each Tablet, 1 TAB PO Q6H PRN for PAIN-MODERATE (5-7) Prescribed by: ANY BUSH on 09/23/20 1036 Hydrocodone/Acetaminophen (Hydrocodone-Acetamin 5-325 mg) 5 Mg-325 Mg Tablet, 1 TAB PO Q6H PRN for PAIN-MODERATE (5-7) Prescribed by: CAITLIN CAMPOS on 08/07/22 1924 Ibuprofen (Ibu) 600 Mg Tablet, 600 MG PO Q6HR Prescribed by: VALDEMAR BARTON on 05/24/20 1242 Ipratropium/Albuterol Sulfate (Iprat-Albut 0.5-3(2.5) mg/3 ml) 0.5 Mg-3 Mg (2.5 Mg Base)/3 Ml Ampul.neb, 3 ML IH Q6H PRN for SHORTNESS OF BREATH Prescribed by: Elisa Rivera on 06/24/22 1550 Meloxicam (Meloxicam) 7.5 Mg Tablet, 7.5 MG PO DAILY Prescribed by: CUATE VILLASENOR on 10/24/20 0049 Methylprednisolone (Medrol) 4 Mg Tab.ds.pk, 4 MG PO UD Prescribed by: JANENE DICKEY on 08/08/20 0028 Naproxen (Naprosyn) 500 Mg Tablet, 500 MG PO BID PRN for PAIN-MODERATE (5-7) Prescribed by: ANTONINA WINTER on 12/29/20 1654 Naproxen (Naprosyn) 500 Mg Tablet, 500 MG PO BID Prescribed by: ANTONINA WINTER on 03/25/21 2119 Nitrofurantoin Macrocrystal (Nitrofurantoin) 100 Mg Capsule, 100 MG PO BID Prescribed by: YE JOEL on 12/02/20 1339 Ondansetron (Ondansetron Odt) 4 Mg Tab.rapdis, 4 MG PO Q6H PRN for NAUSEA-1ST LINE Prescribed by: JOANNA ANNE on 10/13/20 1815 Pantoprazole Sodium (Protonix) 40 Mg Tablet.dr, 40 MG PO DAILY Prescribed by: JANENE DICKEY on 08/08/20 0028 Prednisone (Prednisone) 20 Mg Tab, 40 MG PO DAILY Prescribed by: ANTONINA WINTER on 09/06/20 2019 Prednisone (Prednisone) 20 Mg Tab, 40 MG PO DAILY Prescribed by: ANTONINA WINTER on 11/04/20 1137 Prednisone (Prednisone) 20 Mg Tab, 40 MG PO DAILY Prescribed by: YE JOEL on 12/02/20 1335 Prednisone (Prednisone) 20 Mg Tab, 40 MG PO DAILY Prescribed by: ANTONINA WINTER on 07/04/21 1213 Sulfamethoxazole/Trimethoprim (Bactrim Ds Tablet) 1 Each Tablet, 1 EACH PO BID Prescribed by: CAITLIN CAMPOS on 08/07/22 192 Tramadol HCl (Ultram) 50 Mg Tablet, 50 MG PO Q6H PRN for PAIN-BREAKTHROUGH Prescribed by: ALCIDES CONNELLY on 09/19/20 1215 Tramadol HCl (Tramadol HCl) 50 Mg Tablet, 50 MG PO Q6H PRN for PAIN Prescribed by: CUATE VILLASENOR on 10/24/20 0050 Tramadol HCl (Tramadol HCl) 50 Mg Tablet, 50 MG PO Q6H PRN for PAIN Prescribed by: YE JOEL on 12/02/20 1336 Tramadol HCl (Ultram) 50 Mg Tablet, 50 MG PO Q6H PRN for PAIN-MODERATE (5-7) Prescribed by: ANTONINA WINTER on 12/29/20 1654 Tramadol HCl (Ultram) 50 Mg Tablet, 50 MG PO Q6H PRN for PAIN-MODERATE (5-7) Prescribed by: ANTONINA WINTER on 01/29/21 1108 Review of Systems Constitutional: see HPI Past Vwgektj-Oisovx-Jgvoxi Hx Patient Social History Tobacco Use?: No Use of E-Cig and/or Vaping dev: No Substance use?: No Alcohol Use?: No Immunizations Up To Date First/Initial COVID19 Vaccinat: x1 Second COVID19 Vaccination Rajeev: NO Third COVID19 Vaccination Date: NO Seasonal Allergies Seasonal Allergies: No Past Medical History Surgery/Hospitalization HX: SX: REMOVAL OF EXTRA THUMB, tubal PMH: BULGING DISC LOWER BACK bipolar, anxiety, depression sciatica Surgeries: Yes Tubal Ligation Respiratory: Yes (P.E. 01/2020 WHILE ) Pulmonary Embolism Currently Using CPAP: No Currently Using BIPAP: No Cardiac: Yes (P.E. 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 No Pertinent Family Hx MOVED HERE IN APRIL 2020 FROM [place], [place] WITH MALE S.O. AND CHILDREN DUE TO HOMELESSNESS PT IS AB 1 PT HAD P.E. 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 ADDITIONALLY, PT HAD GESTATIONAL DIABETES Physical Exam Vital Signs Vital Signs - First Documented 11/06/22 06:50 Temp 36.6 Pulse 102 Resp 16 B/P (MAP) 150/96 (114) Pulse Ox 99 O2 Delivery Room Air Capillary Refill : Height, Weight, BMI Height: '" Weight: lbs. oz. kg; 46.00 BMI Method:Actual General Appearance: WD/WN, no apparent distress Cardiovascular: regular rate, rhythm, no murmur Respiratory: chest non-tender, lungs clear, normal breath sounds Gastrointestinal: non tender, soft Hips: bilateral hip non-tender, bilateral hip normal inspection, bilateral hip normal range of motion Legs: left leg other (Tenderness palpation left anterior mid thigh. Seems superficial. No swelling. No bony tenderness. There is scarring from apparent cutting on her left anterior leg) Knees: bilateral knee non-tender, bilateral knee normal inspection, bilateral knee normal range of motion Ankles: bilateral ankle non-tender, bilateral ankle normal inspection, bilateral ankle normal range of motion Feet: bilateral foot non-tender, bilateral foot normal inspection, bilateral foot normal range of motion Neurologic/Tendon: normal sensation, normal motor functions, normal tendon functions Neurologic/Psychiatric: alert, normal mood/affect, oriented x 3 Progress/Results/Core Measures Results/Orders My Orders Orders - ASHLYNBAUDILIO DO Us Venous Lower Ext Lt (11/06/22 06:49) Vital Signs/I&O 11/06/22 06:50 Temp 36.6 Pulse 102 Resp 16 B/P (MAP) 150/96 (114) Pulse Ox 99 O2 Delivery Room Air Departure Communication (Admissions) Initial differential diagnosis includes musculoskeletal pain, DVT. There is no evidence of arterial occlusion with good distal pulses, good perfusion. There is no sensory deficit. Venous duplex is negative for DVT. Is likely musculoskeletal pain. Recommend ibuprofen Tylenol and ice to the area. Discharged in stable condition. Impression Primary Impression: Left thigh pain Disposition: HOME, SELF-CARE Condition: Stable Departure-Patient Inst. Referrals: [facility] (PCP/Family) Primary Care Physician Patient Instructions: Acute Pain, Adult (DC) Add. Discharge Instructions: There is no evidence for blood clot based on the ultrasound performed today. This is likely pain in your muscles. Use ibuprofen and Tylenol as needed for pain. Increase your fluids and rest as needed. Return to the emergency department for any severe concerns BAUDILIO GOLDBERG DO Nov 06, 2022 06:52
--- NOTE | 2022-11-06 07:28 | Diagnostic Imaging Report ---
PROCEDURE: US left lower extremity venous. TECHNIQUE: Multiple real-time grayscale images were obtained over the left lower extremity in various projections. Additional duplex Doppler and color Doppler images were also obtained. INDICATION: Left leg pain EXAMINATION: Grayscale and color Doppler evaluation of the deep veins of the left lower extremity were performed with waveform analysis. FINDINGS: Continuous venous flow is present. No intraluminal filling defect is identified. There is normal compressibility and response to augmentation. No abnormal perivascular fluid collection is identified. IMPRESSION: No ultrasound evidence of left lower extremity deep venous thrombosis. Dictated by: Dictated on workstation # [id number]
[2022-11-06 07:29] VITALS: BP 150/96
== END 2022-11-06 07:29 | disposition home or self-care (01) ==
LOC: EDUNIT# 06:39 → ER 06:42
DX: M79.652 Pain in left thigh (principal); E66.9 Obesity, unspecified; Z68.42 Body mass index [BMI] 45.0-49.9, adult; Z28.311 Partially vaccinated for COVID-19

== ENCOUNTER 2022-11-26 15:51 | Emergency (ER) | payer MEDICAID ==
[~2022-11-26] VITALS: Ht 160 cm; Wt 111.0 kg
[2022-11-26 16:05] VITALS: BP 134/97
--- NOTE | 2022-11-26 16:15 | ED GU-Female ---
General Chief Complaint: - Reproductive Stated Complaint: YEAST INFECTION Source: patient Exam Limitations: no limitations History of Present Illness Date Seen by Provider: Nov 26, 2022 Time Seen by Provider: 16:12 Initial Comments Patient is a 27-year-old female who presents to ED for vaginal pain and burning. Symptoms over the past few weeks. States burning is not necessarily with urination. She denies of any abnormal vaginal discharge. She states she was seen last week at [facility] and had swabs performed. She does not know the results. She has been taking oral Diflucan as well as Monistat externally without much improvement. She states she has been on multiple antibiotics for the past month and a half for bacterial pelvic infection as well as a UTI. She is unclear what the antibiotic is. She denies abdominal pain, flank pain, fever, chills, nausea vomiting, pain with urination, frequent urination, diarrhea. Currently sexually active would like to be checked for sexual transmitted sections. Last menstrual cycle was the end of last month. Allergies and Home Medications Allergies Coded Allergies: No Known Drug Allergies (Unverified , 06/24/22) Patient Home Medication List Home Medication List Reviewed: Yes Amoxicillin/Potassium Clav (Amox Tr-K Clv 875-125 mg Tab) 1 Each Tablet, 875 MG PO BID WITH MEALS Prescribed by: VALDEMAR BARTON on 05/24/20 1242 Benzocaine/Menthol (Dermoplast Pain Relieving [place]) 78 Gm Aerosol, 56 ML TP UD PRN for PAIN- SEE INSTRUCTIONS Prescribed by: VALDEMAR BARTON on 05/24/20 1242 Ciprofloxacin HCl (Cipro) 500 Mg Tablet, 500 MG PO BID Prescribed by: ALCIDES CONNELLY on 08/19/22 1532 Diclofenac Sodium (Voltaren Arthritis Pain) 20 Gm Gel..gram., 1 GM TP TID Prescribed by: ANTONINA WINTER on 01/29/21 1211 Docusate Sodium (Dok) 100 Mg Capsule, 100 MG PO BID PRN for CONSTIPATION-1ST LINE Prescribed by: VALDEMAR BARTON on 05/24/20 1242 Enoxaparin Sodium (Enoxaparin Sodium) 40 Mg/0.4 Ml Syringe, 0 MG SQ Q24H Prescribed by: VALDEMAR BARTON on 05/24/20 1242 Fluconazole (Diflucan) 150 Mg Tablet, 150 MG PO DAILY Prescribed by: EDIS NICHOLAS on 11/26/22 1643 Gabapentin (Gabapentin) 100 Mg Capsule, 200 MG PO Q8H PRN for PAIN-MODERATE (5- 7) Prescribed by: ANTONIAN WINTER on 11/04/20 1137 Guaifenesin/Codeine Phosphate (Guaifenesin-Codeine Syrup) 5 Ml Liquid, 5 ML PO Q4H PRN for COUGH Prescribed by: ANTONINA WINTER on 07/04/21 1213 Hydrocodone/Acetaminophen (Hydrocodone-Acetamin 5-325 mg) 1 Each Tablet, 1 TAB PO Q6H PRN for PAIN-MODERATE (5-7) Prescribed by: ANY BUSH on 09/23/20 1036 Hydrocodone/Acetaminophen (Hydrocodone-Acetamin 5-325 mg) 5 Mg-325 Mg Tablet, 1 TAB PO Q6H PRN for PAIN-MODERATE (5-7) Prescribed by: CAITLIN CAMPOS on 08/07/22 1924 Ibuprofen (Ibu) 600 Mg Tablet, 600 MG PO Q6HR Prescribed by: VALDEMAR BARTON on 05/24/20 1242 Ipratropium/Albuterol Sulfate (Iprat-Albut 0.5-3(2.5) mg/3 ml) 0.5 Mg-3 Mg (2.5 Mg Base)/3 Ml Ampul.neb, 3 ML IH Q6H PRN for SHORTNESS OF BREATH Prescribed by: Elisa Rivera on 06/24/22 1550 Meloxicam (Meloxicam) 7.5 Mg Tablet, 7.5 MG PO DAILY Prescribed by: CUATE VILLASENOR on 10/24/20 0049 Methylprednisolone (Medrol) 4 Mg Tab.ds.pk, 4 MG PO UD Prescribed by: JANENE DICKEY on 08/08/20 0028 Naproxen (Naprosyn) 500 Mg Tablet, 500 MG PO BID PRN for PAIN-MODERATE (5-7) Prescribed by: ANTOINNA WINTER on 12/29/20 1654 Naproxen (Naprosyn) 500 Mg Tablet, 500 MG PO BID Prescribed by: ANTONINA WINTER on 03/25/21 2119 Nitrofurantoin Macrocrystal (Nitrofurantoin) 100 Mg Capsule, 100 MG PO BID Prescribed by: YE JOEL on 12/02/20 1339 Ondansetron (Ondansetron Odt) 4 Mg Tab.rapdis, 4 MG PO Q6H PRN for NAUSEA-1ST LINE Prescribed by: JOANNA ANNE on 10/13/20 1815 Pantoprazole Sodium (Protonix) 40 Mg Tablet.dr, 40 MG PO DAILY Prescribed by: JANENE DICKEY on 08/08/20 0028 Prednisone (Prednisone) 20 Mg Tab, 40 MG PO DAILY Prescribed by: ANTONINA WINTER on 09/06/20 2019 Prednisone (Prednisone) 20 Mg Tab, 40 MG PO DAILY Prescribed by: ANTONINA WINTER on 11/04/20 1137 Prednisone (Prednisone) 20 Mg Tab, 40 MG PO DAILY Prescribed by: YE JOEL on 12/02/20 1335 Prednisone (Prednisone) 20 Mg Tab, 40 MG PO DAILY Prescribed by: ANTONINA WINTER on 07/04/21 1213 Sulfamethoxazole/Trimethoprim (Bactrim Ds Tablet) 1 Each Tablet, 1 EACH PO BID Prescribed by: CAITLIN CAMPOS on 08/07/22 1923 Tramadol HCl (Ultram) 50 Mg Tablet, 50 MG PO Q6H PRN for PAIN-BREAKTHROUGH Prescribed by: ALCIDES CONNELLY on 09/19/20 1215 Tramadol HCl (Tramadol HCl) 50 Mg Tablet, 50 MG PO Q6H PRN for PAIN Prescribed by: CUATE VILLASENOR on 10/24/20 0050 Tramadol HCl (Tramadol HCl) 50 Mg Tablet, 50 MG PO Q6H PRN for PAIN Prescribed by: YE JOEL on 12/02/20 1336 Tramadol HCl (Ultram) 50 Mg Tablet, 50 MG PO Q6H PRN for PAIN-MODERATE (5-7) Prescribed by: ANTONINA WINTER on 12/29/20 1654 Tramadol HCl (Ultram) 50 Mg Tablet, 50 MG PO Q6H PRN for PAIN-MODERATE (5-7) Prescribed by: ANTONINA WINTER on 01/29/21 1108 Review of Systems Review of Systems Constitutional: No chills, No diaphoresis, No fever, No malaise, No weakness EENTM: No blurred vision Respiratory: No cough, No dyspnea on exertion Cardiovascular: No chest pain Gastrointestinal: No abdominal pain, No diarrhea, No nausea Genitourinary: burning; denies discharge, denies dysuria, denies frequency Musculoskeletal: No back pain, No gout, No joint swelling, No muscle pain Skin: No change in color, No change in hair/nails All Other Systemes Reviewed Negative Unless Noted: Yes Past Shmtqxv-Odvzin-Xwxnqc Hx Immunizations Up To Date First/Initial COVID19 Vaccinat: 2020 Second COVID19 Vaccination Rajeev: NO Third COVID19 Vaccination Date: NO Seasonal Allergies Seasonal Allergies: No Past Medical History Surgery/Hospitalization HX: PREVIOUS DVT Surgeries: Yes Tubal Ligation Respiratory: Yes (P.E. 01/2020 WHILE ) Pulmonary Embolism Currently Using CPAP: No Currently Using BIPAP: No Cardiac: Yes (P.E. 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 No Pertinent Family Hx MOVED HERE IN APRIL 2020 FROM [place], [place] WITH MALE S.O. AND CHILDREN DUE TO HOMELESSNESS PT IS AB 1 PT HAD P.E. 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 ADDITIONALLY, PT HAD GESTATIONAL DIABETES Physical Exam Vital Signs Vital Signs - First Documented 11/26/22 16:05 Temp 36.6 Pulse 89 Resp 16 B/P (MAP) 134/97 (109) Pulse Ox 97 O2 Delivery Room Air Capillary Refill : Height, Weight, BMI Height: '" Weight: lbs. oz. 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, no motor/sensory deficits, alert, normal mood/affect, oriented x 3 Skin: normal color, warm/dry Progress/Results/Core Measures Suspected Sepsis SIRS Temperature: Pulse: Respiratory Rate: Blood Pressure / Mean: Results/Orders Lab Results Laboratory Tests Test 11/26/22 16:17 Range/Units Urine Color YELLOW Urine Clarity CLEAR Urine pH 6.5 5-9 Urine Specific [place] 1.025 H 1.016-1.022 Urine Protein TRACE H NEGATIVE Urine Glucose (UA) NEGATIVE NEGATIVE Urine Ketones NEGATIVE NEGATIVE Urine Nitrite NEGATIVE NEGATIVE Urine Bilirubin NEGATIVE NEGATIVE Urine Urobilinogen 0.2 < = 1.0 MG/DL Urine Leukocyte Esterase NEGATIVE NEGATIVE Urine RBC (Auto) 1+ H NEGATIVE Urine RBC RARE /HPF Urine WBC RARE /HPF Urine Squamous Epithelial Cells 5-10 /HPF Urine Crystals NONE /LPF Urine Calcium Oxalate Crystals /LPF Urine Bacteria FEW H /HPF Urine Casts NONE /LPF Urine Mucus NEGATIVE /LPF Urine Culture Indicated YES Urine Test NEGATIVE NEGATIVE Micro Results Microbiology 11/26/22 Wet Prep - Final, Complete My Orders Orders - JANEY RANDLE Wet Prep (11/26/22 16:10) Neisseria Gonorrhea Swab (11/26/22 16:10) Chlamydia Trachomatis Swab (11/26/22 16:10) Ua Culture If Indicated (11/26/22 16:10) Hcg,Qualitative Urine (11/26/22 16:10) Urine Culture (11/26/22 16:17) Fluconazole Tablet (Ed Only) (Fluconazol (11/26/22 16:45) Vital Signs/I&O 11/26/22 16:05 Temp 36.6 Pulse 89 Resp 16 B/P (MAP) 134/97 (109) Pulse Ox 97 O2 Delivery Room Air Capillary Refill : Departure Communication (PCP) Patient states she has been on multiple antibiotics over the past month and a half. Vaginal discomfort. Diagnosed with yeast infection was on oral Diflucan and topical Monistat last week. She reports continued symptoms. No current vaginal discharge or vaginal bleeding or urinary symptoms. No abdominal pain or flank pain. Last menstrual cycle was the end of last month. She is not currently on any oral antibiotics. No abdominal tenderness or flank tenderness. Differential diagnosis vaginitis, UTI, STD. Urinalysis with test was ordered as well as a wet mount and STD cultures. Self swab was ordered. Urinalysis without strong evidence of infection negative for . Wet mount returned positive for few white blood cells and yeast. She was ordered oral dose of Diflucan 150 mg per her request. STD cultures pending. Sexual intercourse until results. If no improvement recommend another dose of oral Diflucan 150 mg in 72 hours. Avoid any fragrances, soaps or excessive cleaning in this area. No sex intercourse until symptoms resolve and or until STD cultures return. If continue having symptoms recommend following up with gynecology. Return precaution were discussed with patient Impression Primary Impression: Vaginitis Disposition: 01 HOME, SELF-CARE Condition: Stable Departure-Patient Inst. Decision time for Depature: 16:42 Referrals: [facility] (PCP/Family) Primary Care Physician Patient Instructions: Vaginitis Add. Discharge Instructions: You tested positive for yeast. If no improvement recommend taking the other oral Diflucan in 3 days. Avoid excessive cleaning, fragrances. If continue having symptoms recommend following up with gynecology at [facility]. Recommend no sex intercourse until symptoms resolve. Pending STD cultures All discharge instructions reviewed with patient and/or family. Voiced understanding. Scripts Fluconazole (Diflucan) 150 Mg Tablet 150 MG PO DAILY, #1 TAB Prov: JANEY RANDLE 11/26/22 JANEY RANDLE Nov 26, 2022 16:15
[2022-11-26 16:32] LABS: BILIRUBIN,URINE NEGATIVE (NEGATIVE); CLARITY,URINE CLEAR; COLOR,URINE YELLOW; GLUCOSE, URINE (UA) NEGATIVE (NEGATIVE); KETONES,URINE NEGATIVE (NEGATIVE); NITRITE,URINE NEGATIVE (NEGATIVE); PH,URINE 6.5 (5-9); PROTEIN,URINE TRACE (NEGATIVE)
[2022-11-26 16:33] LABS: BACTERIA,URINE FEW /HPF; LEUKOCYTE ESTERASE ,URINE NEGATIVE (NEGATIVE); RBC,URINE RARE /HPF; WBC,URINE RARE /HPF
[2022-11-26] MEDS ORDERED: FLUC150T PO (16:43)
[2022-11-27] MEDS ORDERED: CIPR5DRO OP (23:21)
[2022-11-29] MEDS ORDERED: CEPH500T PO (08:14)
== END 2022-11-26 17:00 | disposition home or self-care (01) ==
LOC: EDUNIT# 15:51 → ER 15:53
DX: N76.0 Acute vaginitis (principal); E66.9 Obesity, unspecified; Z68.41 Body mass index [BMI] 40.0-44.9, adult; Z28.311 Partially vaccinated for COVID-19
CPT/HCPCS: 36415; 81000; 84703; 87077; 87088; 87210; 87491; 87591; 99283

== ENCOUNTER 2022-11-27 21:52 | Emergency (ER) | payer MEDICAID ==
[~2022-11-27] VITALS: Ht 160 cm; Wt 114.0 kg
[~2022-11-27 21:52] MED LIST changes: +FLUC150T PO
--- NOTE | 2022-11-27 22:09 | ED EENT ---
History of Present Illness General Chief Complaint: Eye Problems Stated Complaint: RIGHT EYE PAIN Nursing Triage Note: PATIENT STATES THAT THIS AM WHEN SHE WOKE UP SHE NOTICED REDNESS IN THE LEFT CORNER OF HER RIGHT EYE. SHE ALSO HAD A HEADACHE TODAY AND THIS EVENING SHE STATES THAT IT IS LIGHT SENSITIVE AND FEELS PRESSURE WHEN THE EYE IS OPEN. Source: patient Exam Limitations: no limitations History of Present Illness Date Seen by Provider: Nov 27, 2022 Time Seen by Provider: 22:00 Initial Comments Patient is a 27-year-old female who presents to the emergency room with a chief complaint of right eye pain. Patient states when she woke up this morning she had some increased redness to the medial portion of her right eye. She states she developed over the course of the day a right frontal headache. She states the eye feels like it has a "pressure" around it. She does not wear glasses or contacts. She states that she is very sensitive to light. She does endorse a little blurry vision from the right eye. She has never had symptoms like this before. No eye drainage. No fevers or chills. No cloudy vision. She takes no daily medications. No recent fevers. No pain in her right hoahaoism, no pain in her cheek. No sinus drainage or congestion. No other complaints of illness or injury. She has not taken anything over the course of the day for the eye pain or headache. Timing/Duration: abrupt Severity: moderate Location: eye (R) Prearrival Treatment: no prearrival treatment Associated Symptoms: denies symptoms Allergies and Home Medications Allergies Coded Allergies: No Known Drug Allergies (Unverified , 06/24/22) Patient Home Medication List Home Medication List Reviewed: Yes Amoxicillin/Potassium Clav (Amox Tr-K Clv 875-125 mg Tab) 1 Each Tablet, 875 MG PO BID WITH MEALS Prescribed by: VALDEMAR BARTON on 05/24/20 1242 Benzocaine/Menthol (Dermoplast Pain Relieving Weir) 78 Gm Aerosol, 56 ML TP UD PRN for PAIN- SEE INSTRUCTIONS Prescribed by: VALDEMAR BARTON on 05/24/20 1242 Ciprofloxacin HCl (Cipro) 500 Mg Tablet, 500 MG PO BID Prescribed by: ALCIDES CONNELLY on 08/19/22 1532 Ciprofloxacin HCl (Ciloxan) 0.3 % Drops, 2 DROPS OP Q4H Prescribed by: CUATE VILLASENOR on 11/27/22 2321 Diclofenac Sodium (Voltaren Arthritis Pain) 20 Gm Gel..gram., 1 GM TP TID Prescribed by: ANTONINA WINTER on 01/29/21 1211 Docusate Sodium (Dok) 100 Mg Capsule, 100 MG PO BID PRN for CONSTIPATION-1ST LINE Prescribed by: VALDEMAR BARTON on 05/24/20 1242 Enoxaparin Sodium (Enoxaparin Sodium) 40 Mg/0.4 Ml Syringe, 0 MG SQ Q24H Prescribed by: VALDEMAR BARTON on 05/24/20 1242 Fluconazole (Diflucan) 150 Mg Tablet, 150 MG PO DAILY Prescribed by: EDIS NICHOLAS on 11/26/22 1643 Gabapentin (Gabapentin) 100 Mg Capsule, 200 MG PO Q8H PRN for PAIN-MODERATE (5- 7) Prescribed by: ANTONINA WINTER on 11/04/20 1137 Guaifenesin/Codeine Phosphate (Guaifenesin-Codeine Syrup) 5 Ml Liquid, 5 ML PO Q4H PRN for COUGH Prescribed by: ANTONINA WINTER on 07/04/21 1213 Hydrocodone/Acetaminophen (Hydrocodone-Acetamin 5-325 mg) 1 Each Tablet, 1 TAB PO Q6H PRN for PAIN-MODERATE (5-7) Prescribed by: ANY BUSH on 09/23/20 1036 Hydrocodone/Acetaminophen (Hydrocodone-Acetamin 5-325 mg) 5 Mg-325 Mg Tablet, 1 TAB PO Q6H PRN for PAIN-MODERATE (5-7) Prescribed by: CAITLIN CAMPOS on 08/07/22 1924 Ibuprofen (Ibu) 600 Mg Tablet, 600 MG PO Q6HR Prescribed by: VALDEMAR BARTON on 05/24/20 1242 Ipratropium/Albuterol Sulfate (Iprat-Albut 0.5-3(2.5) mg/3 ml) 0.5 Mg-3 Mg (2.5 Mg Base)/3 Ml Ampul.neb, 3 ML IH Q6H PRN for SHORTNESS OF BREATH Prescribed by: Elisa Rivera on 06/24/22 1550 Meloxicam (Meloxicam) 7.5 Mg Tablet, 7.5 MG PO DAILY Prescribed by: CUATE VILLASENOR on 10/24/20 0049 Methylprednisolone (Medrol) 4 Mg Tab.ds.pk, 4 MG PO UD Prescribed by: JANENE DICKEY on 08/08/20 0028 Naproxen (Naprosyn) 500 Mg Tablet, 500 MG PO BID PRN for PAIN-MODERATE (5-7) Prescribed by: ANTONINA WINTER on 12/29/20 1654 Naproxen (Naprosyn) 500 Mg Tablet, 500 MG PO BID Prescribed by: ANTONINA WINTER on 03/25/21 2119 Nitrofurantoin Macrocrystal (Nitrofurantoin) 100 Mg Capsule, 100 MG PO BID Prescribed by: YE JOEL on 12/02/20 1339 Ondansetron (Ondansetron Odt) 4 Mg Tab.rapdis, 4 MG PO Q6H PRN for NAUSEA-1ST LINE Prescribed by: JOANNA ANNE on 10/13/20 181 Pantoprazole Sodium (Protonix) 40 Mg Tablet.dr, 40 MG PO DAILY Prescribed by: JANENE DICKEY on 08/08/20 0028 Prednisone (Prednisone) 20 Mg Tab, 40 MG PO DAILY Prescribed by: ANTONINA WINTER on 09/06/20 2019 Prednisone (Prednisone) 20 Mg Tab, 40 MG PO DAILY Prescribed by: ANTONINA WINTER on 11/04/20 1137 Prednisone (Prednisone) 20 Mg Tab, 40 MG PO DAILY Prescribed by: YE JOEL on 12/02/20 1335 Prednisone (Prednisone) 20 Mg Tab, 40 MG PO DAILY Prescribed by: ANTONINA WINTER on 07/04/21 1213 Sulfamethoxazole/Trimethoprim (Bactrim Ds Tablet) 1 Each Tablet, 1 EACH PO BID Prescribed by: CAITLIN CAMPOS on 08/07/22 1923 Tramadol HCl (Ultram) 50 Mg Tablet, 50 MG PO Q6H PRN for PAIN-BREAKTHROUGH Prescribed by: ALCIDES CONNELLY on 09/19/20 1215 Tramadol HCl (Tramadol HCl) 50 Mg Tablet, 50 MG PO Q6H PRN for PAIN Prescribed by: CUATE VILLASENOR on 10/24/20 0050 Tramadol HCl (Tramadol HCl) 50 Mg Tablet, 50 MG PO Q6H PRN for PAIN Prescribed by: YE JOEL on 12/02/20 1336 Tramadol HCl (Ultram) 50 Mg Tablet, 50 MG PO Q6H PRN for PAIN-MODERATE (5-7) Prescribed by: ANTONINA WINTER on 12/29/20 1654 Tramadol HCl (Ultram) 50 Mg Tablet, 50 MG PO Q6H PRN for PAIN-MODERATE (5-7) Prescribed by: ANTONINA WINTER on 01/29/21 1108 Review of Systems Review of Systems Constitutional: see HPI Eyes: Blurred Vision (Right), Inflammation, Pain Nose: no symptoms reported Mouth: no symptoms reported Respiratory: no symptoms reported Cardiovascular: no symptoms reported Past Nnwsbpu-Wkdyxr-Ubvwci Hx Immunizations Up To Date First/Initial COVID19 Vaccinat: 2020 Second COVID19 Vaccination Rajeev: 2020 Third COVID19 Vaccination Date: 2020 Seasonal Allergies Seasonal Allergies: No Past Medical History Surgery/Hospitalization HX: PREVIOUS DVT Surgeries: Yes Tubal Ligation Respiratory: Yes (P.E. 01/2020 WHILE ) Pulmonary Embolism Currently Using CPAP: No Currently Using BIPAP: No Cardiac: Yes (P.E. 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 No Pertinent Family Hx MOVED HERE IN APRIL 2020 FROM [place], [place] WITH MALE S.O. AND CHILDREN DUE TO HOMELESSNESS PT IS AB 1 PT HAD P.E. 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 ADDITIONALLY, PT HAD GESTATIONAL DIABETES Visual Acuity : Eye Location: Right Physical Exam Vital Signs Vital Signs - First Documented 11/27/22 21:55 Temp 36.7 Pulse 73 Resp 18 B/P (MAP) 146/85 (105) Pulse Ox 99 O2 Delivery Room Air Height, Weight, BMI Height: '" Weight: lbs. oz. kg; 44.00 BMI Method:Actual General Appearance: WD/WN, no apparent distress Eyes: right eye PERRL, right eye EOMI, right eye conjunctival inflammation (mild medial inflammation) Ears: bilateral ear auricle normal Nose: normal inspection Mouth/Throat: normal mouth inspection Neck: full range of motion, supple Cardiovascular: regular rate, rhythm Respiratory: no respiratory distress, no accessory muscle use Neurologic/Psychiatric: alert, normal mood/affect, oriented x 3 Skin: normal color, warm/dry Procedures/Interventions Eye : Location: right eye Anesthesia (gtts): Tetracaine Intraocular Pressure: Per Tonopen (), (R) eye (mm) Progress/Procedure Conclusion normal pressures; stained with florescein as well, no foreign body or abnormal dye uptake Progress/Results/Core Measures Results/Orders My Orders Orders - CUATE VILLASENOR MD Tetracaine 0.5% Ophth Soln (Tetravisc 0. (11/27/22 22:15) Urine Bedside (11/27/22 22:12) Tetracaine 0.5% Ophth Rosey Sdv (Tetracai (11/27/22 22:18) Fluorescein Ophthalmic Strips (Fluoresce (11/27/22 22:45) Balanced Salt Irrigation Soln (Bss Irrig (11/27/22 22:45) Ketorolac Injection (Ketorolac Injection (11/27/22 23:05) Medications Given in ED Vital Signs/I&O Blood Pressure Mean: 105 Progress Progress Note : Time: 23:21 Progress Note Patient seen and evaluated by me. Evaluation today includes physical exam with fluorescein staining of the right eye as well as measurement of intraocular pressures on the right eye. Pertinent physical exam findings include inflammation of the sclera/conjunctive a medial right eye. Extraocular muscles are intact, pupils are equal round and reactive to light. She has no globe tenderness. No excessive tearing or discharge. No painful extraocular muscle movement. No surrounding edema of the upper and lower lid, no erythema. No preauricular lymphadenopathy. No facial swelling. Vital signs are stable, the patient is afebrile. Differential diagnosis based on history and physical exam foreign body in the eye, conjunctivitis, iritis. Patient's exam reveals normal intraocular pressures measured at 14 and 15. She had no evidence on fluorescein staining of foreign body or dye uptake. She is treated for her headache with 30 mg of Toradol IM and achieved good relief of her symptoms. I did provide her with some antibiotic drops for the course of the next 5 days. Recommended follow-up with her poiser balance. Return precautions provided in both verbal and written format. All questions are soug ht and answered. Patient is improved at discharge. No concern for significant iritis or aggressive infection. Departure Impression Primary Impression: Conjunctivitis Qualified Codes: H10.31 - Unspecified acute conjunctivitis, right eye Additional Impression: Headache above the eye region Disposition: HOME, SELF-CARE Condition: Stable Departure-Patient Inst. Decision time for Depature: 23:17 [facility]: [facility] [place] Primary Care Physician Patient Instructions: Conjunctivitis (Noninfectious [place]) Add. Discharge Instructions: Cool compresses to the right eye will help with discomfort. Use the antibiotic drops to the right eye, 2 drops every 4 hours while awake for 5 days. Over the counter ibuprofen 3 pills which is 600mg every 6 hours with food as needed for headache. If you have worsening eye pain especially with redness around the eye, fever, worsening vision problems, please return to the Emergency Department for re- evaluation. Please call your eye doctor for a follow up appointment. Scripts Ciprofloxacin HCl (Ciloxan) 0.3 % Drops 2 DROPS OP Q4H for 5 Days, #5 ML 3 Refills 3 Drops Each Ear Prov: CUATE VILLASENOR MD 11/27/22 Copy Copies To 1: JOSE MOISE KATHRYN M MD Nov 27, 2022 22:09
[2022-11-27] MEDS ORDERED: TETRACAINE 0.5% OPHTH SOLN 5 ML BTL OP ONE (22:15)
[2022-11-27] MEDS ORDERED: TETRACAINE 0.5% OPHTH SOLN 4 ML BTL (SINGLE DOSE ONLY) ONE (22:18)
[2022-11-27] MEDS ORDERED: FLUORESCEIN 1 MG OPHTHALMIC STRIPS OU ONE (22:45)
[2022-11-27] MEDS ORDERED: BSS 15 ML IR ONE (22:45)
[2022-11-27] MEDS ORDERED: KETOROLAC INJ 30 MG/ML VIAL IM STA (23:05)
[2022-11-27] MEDS ORDERED: CIPR5DRO OP (23:21)
[2022-11-27 23:27] VITALS: BP 125/87
[2022-11-29] MEDS ORDERED: CEPH500T PO (08:14)
== END 2022-11-27 23:29 | disposition home or self-care (01) ==
LOC: EDUNIT# 21:52 → ER 21:53
DX: H10.9 Unspecified conjunctivitis (principal); R51.9 Headache, unspecified; E66.9 Obesity, unspecified; Z68.41 Body mass index [BMI] 40.0-44.9, adult; Z28.311 Partially vaccinated for COVID-19
CPT/HCPCS: 84703; 99284

== ENCOUNTER 2022-12-31 23:46 | Emergency (ER) | payer MEDICAID ==
[~2022-12-31] VITALS: Ht 160 cm; Wt 109.0 kg
[~2022-12-31 23:46] MED LIST changes: +CEPH500T PO; +CIPR5DRO OP
--- NOTE | 2023-01-01 00:45 | ED GU-Female ---
General Chief Complaint: - Reproductive Stated Complaint: VAGINAL ISSUES,GREEN DISCHARGE,CRAMPS Nursing Triage Note: PT AMB TO FT 3 W C/O GEN ABD CRAMPING X 1.5 - 2 WEEKS AND GREEN VAGINAL DISCHARGE THAT BEGAN TODAY. PT REPORTS RECENT VAGINAL YEAST INFECTION, A&OX4. Source: patient Exam Limitations: no limitations (MICHAEL BEEBE) History of Present Illness Date Seen by Provider: Jan 01, 2023 Time Seen by Provider: 00:27 Initial Comments 27yo F with h/o PE, cardiomyopathy in , PID, and tubal ligation presents to the ED for c/o new onset green vaginal discharge and LLQ abd pain that started 2-3 days ago. Pt describes LLQ as a 7/10 crampy "menstrual-like" pain. Tonight, pt experienced new onset of green "globs" of vaginal discharge, which prompted further evaluation in the ED. Pt denies any vaginal odor with the discharge. Pt is sexually active and denies any new partners but does state that she is only "mostly exclusive" with her current partner and does not use condoms or any BC. Pt unsure if partner is also experiencing any similar symptoms currently. 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 Pt states that she has been treated for multiple UTIs,abnormal vaginal bleeding, and yeast infections since October. Pt states that she was taking antibiotics for a UTI up until 12/21 when she was told at [facility] to discontinue use and was then started on Protonix as she was experiencing burning epigsatric pain at that time. LMP was end of November. 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 Denies fevers, chills, nausea, vomiting, dysuria, hematuria, and diarrhea. Timing/Duration: just prior to arrival Severity/Quality: mild Location: LLQ, suprapubic Radiation: none Activities at Onset: none Sexual Eunice History: single partner Modifying Factors: Improves With Analgesics (improves) Associated Symptoms: denies symptoms (MICHAEL BEEBE) Sexual Eunice History: multiple partners (patient states that she is "mostly" with one person) (CUATE VILLASENOR MD) Allergies and Home Medications Allergies Coded Allergies: No Known Drug Allergies (Unverified , 06/24/22) Patient Home Medication List Home Medication List Reviewed: Yes (MICHAEL BEEBE) Home Medication List Reviewed: Yes (CUATE VILLASENOR MD) Amoxicillin/Potassium Clav (Amox Tr-K Clv 875-125 mg Tab) 1 Each Tablet, 875 MG PO BID WITH MEALS Prescribed by: VALDEMAR BARTON on 05/24/20 1242 Benzocaine/Menthol (Dermoplast Pain Relieving Merigold) 78 Gm Aerosol, 56 ML TP UD PRN for PAIN- SEE INSTRUCTIONS Prescribed by: VALDEMAR BARTON on 05/24/20 1242 Cephalexin (Cephalexin) 500 Mg Tablet, 500 MG PO TID Prescribed by: ALCIDES CONNELLY on 11/29/22 0814 Ciprofloxacin HCl (Cipro) 500 Mg Tablet, 500 MG PO BID Prescribed by: ALCIDES CONNELLY on 08/19/22 1532 Ciprofloxacin HCl (Ciloxan) 0.3 % Drops, 2 DROPS OP Q4H Prescribed by: CUATE VILLASENOR on 11/27/22 2321 Diclofenac Sodium (Voltaren Arthritis Pain) 20 Gm Gel..gram., 1 GM TP TID Prescribed by: ANTONINA WINTER on 01/29/21 1211 Docusate Sodium (Dok) 100 Mg Capsule, 100 MG PO BID PRN for CONSTIPATION-1ST LINE Prescribed by: VALDEMAR BARTON on 05/24/20 1242 Enoxaparin Sodium (Enoxaparin Sodium) 40 Mg/0.4 Ml Syringe, 0 MG SQ Q24H Prescribed by: VALDEMAR BARTON on 05/24/20 1242 Fluconazole (Diflucan) 150 Mg Tablet, 150 MG PO DAILY Prescribed by: EDIS NICHOLAS on 11/26/22 1643 Gabapentin (Gabapentin) 100 Mg Capsule, 200 MG PO Q8H PRN for PAIN-MODERATE (5- 7) Prescribed by: ANTONINA WINTER on 11/04/20 1137 Guaifenesin/Codeine Phosphate (Guaifenesin-Codeine Syrup) 5 Ml Liquid, 5 ML PO Q4H PRN for COUGH Prescribed by: ANTONINA WINTER on 07/04/21 1213 Hydrocodone/Acetaminophen (Hydrocodone-Acetamin 5-325 mg) 1 Each Tablet, 1 TAB PO Q6H PRN for PAIN-MODERATE (5-7) Prescribed by: ANY BUSH on 09/23/20 1036 Hydrocodone/Acetaminophen (Hydrocodone-Acetamin 5-325 mg) 5 Mg-325 Mg Tablet, 1 TAB PO Q6H PRN for PAIN-MODERATE (5-7) Prescribed by: CAITLIN CAMPOS on 08/07/22 192 Ibuprofen (Ibu) 600 Mg Tablet, 600 MG PO Q6HR Prescribed by: VALDEMAR BARTON on 05/24/20 1242 Ipratropium/Albuterol Sulfate (Iprat-Albut 0.5-3(2.5) mg/3 ml) 0.5 Mg-3 Mg (2.5 Mg Base)/3 Ml Ampul.neb, 3 ML IH Q6H PRN for SHORTNESS OF BREATH Prescribed by: Elisa Rivera on 06/24/22 1550 Meloxicam (Meloxicam) 7.5 Mg Tablet, 7.5 MG PO DAILY Prescribed by: CUATE VILLASENOR on 10/24/20 0049 Methylprednisolone (Medrol) 4 Mg Tab.ds.pk, 4 MG PO UD Prescribed by: JANENE DICKEY on 08/08/20 0028 Metronidazole (Metronidazole) 500 Mg Tablet, 500 MG PO BID Prescribed by: CUATE VILLASENOR on 01/01/23 0156 Naproxen (Naprosyn) 500 Mg Tablet, 500 MG PO BID PRN for PAIN-MODERATE (5-7) Prescribed by: ANTONINA WINTER on 12/29/20 1654 Naproxen (Naprosyn) 500 Mg Tablet, 500 MG PO BID Prescribed by: ANTONINA WINTER on 03/25/21 2119 Nitrofurantoin Macrocrystal (Nitrofurantoin) 100 Mg Capsule, 100 MG PO BID Prescribed by: YE JOEL on 12/02/20 1339 Ondansetron (Ondansetron Odt) 4 Mg Tab.rapdis, 4 MG PO Q6H PRN for NAUSEA-1ST LINE Prescribed by: JOANNA ANNE on 10/13/20 181 Pantoprazole Sodium (Protonix) 40 Mg Tablet.dr, 40 MG PO DAILY Prescribed by: JANENE DICKEY on 08/08/20 0028 Prednisone (Prednisone) 20 Mg Tab, 40 MG PO DAILY Prescribed by: ANTONINA WINTER on 09/06/20 2019 Prednisone (Prednisone) 20 Mg Tab, 40 MG PO DAILY Prescribed by: ANTONINA WINTER on 11/04/20 1137 Prednisone (Prednisone) 20 Mg Tab, 40 MG PO DAILY Prescribed by: YE JOEL on 12/02/20 1335 Prednisone (Prednisone) 20 Mg Tab, 40 MG PO DAILY Prescribed by: ANTONINA WINTER on 07/04/21 1213 Sulfamethoxazole/Trimethoprim (Bactrim Ds Tablet) 1 Each Tablet, 1 EACH PO BID Prescribed by: CAITLIN CAMPOS on 08/07/22 1923 Tramadol HCl (Ultram) 50 Mg Tablet, 50 MG PO Q6H PRN for PAIN-BREAKTHROUGH Prescribed by: ALCIDES CONNELLY on 09/19/20 1215 Tramadol HCl (Tramadol HCl) 50 Mg Tablet, 50 MG PO Q6H PRN for PAIN Prescribed by: CUATE VILLASENOR on 10/24/20 0050 Tramadol HCl (Tramadol HCl) 50 Mg Tablet, 50 MG PO Q6H PRN for PAIN Prescribed by: YE JOEL on 12/02/20 1336 Tramadol HCl (Ultram) 50 Mg Tablet, 50 MG PO Q6H PRN for PAIN-MODERATE (5-7) Prescribed by: ANTONINA WINTER on 12/29/20 1654 Tramadol HCl (Ultram) 50 Mg Tablet, 50 MG PO Q6H PRN for PAIN-MODERATE (5-7) Prescribed by: ANTONINA WINTER on 01/29/21 1108 Review of Systems Review of Systems Constitutional: no symptoms reported EENTM: no symptoms reported Respiratory: no symptoms reported Cardiovascular: no symptoms reported Gastrointestinal: LLQ, abdominal pain; No nausea, No vomiting Genitourinary: denies burning; discharge (green vaginal discharge); denies dysuria, denies hematuria Musculoskeletal: no symptoms reported Skin: no symptoms reported Psychiatric/Neurological: No Symptoms Reported Endocrine: No Symptoms Reported Hematologic/Lymphatic: No Symptoms Reported (MICHAEL BEEBE) All Other Systemes Reviewed Negative Unless Noted: Yes (MICHAEL BEEBE) Past Ztmhosw-Ynjsba-Duylvn Hx Patient Social History Tobacco Use?: No Use of E-Cig and/or Vaping dev: No Substance use?: Yes Substance type: Marijuana Alcohol Use?: Yes Alcohol Frequency: Once in a while (MICHAEL BEEBE) Immunizations Up To Date First/Initial COVID19 Vaccinat: 2020 Second COVID19 Vaccination Rajeev: 2020 Third COVID19 Vaccination Date: 2020 (MICHAEL BEEBE) Seasonal Allergies Seasonal Allergies: No (MICHAEL BEEBE) Past Medical History Surgery/Hospitalization HX: PREVIOUS DVT, PAST METH Surgeries: Yes Tubal Ligation Respiratory: Yes (P.E. 01/2020 WHILE ) Pulmonary Embolism Currently Using CPAP: No Currently Using BIPAP: No Cardiac: Yes (P.E. 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 No Pertinent Family Hx MOVED HERE IN APRIL 2020 FROM [place], [place] WITH MALE S.O. AND CHILDREN DUE TO HOMELESSNESS PT IS AB 1 PT HAD P.E. 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 ADDITIONALLY, PT HAD GESTATIONAL DIABETES (MICHAEL BEEBE) Physical Exam Vital Signs Vital Signs - First Documented 12/31/22 23:57 Temp 36.0 Pulse 80 Resp 18 B/P (MAP) 113/75 (88) Pulse Ox 96 O2 Delivery Room Air (CUATE VILLASENOR MD) Vital Signs Capillary Refill : Less Than 3 Seconds (MICHAEL BEEBE) Height, Weight, BMI Height: '" Weight: lbs. oz. kg; 42.00 BMI Method:Actual General Appearance: no apparent distress, obese HEENT: PERRL/EOMI Cardiovascular: regular rate, rhythm, no murmur Respiratory: lungs clear, normal breath sounds, no respiratory distress, no accessory muscle use Gastrointestinal: normal bowel sounds, soft, tenderness (mild tenderness to p alpation in LLQ and epigsatrium) Neurologic/Psychiatric: alert, normal mood/affect, oriented x 3 Skin: normal color, warm/dry Lymphatic: no adenopathy (MICHAEL BEEBE) Genital/Rectal: normal genital exam, tenderness (+cervical motion tenderness; greenish yellow discharge in the vault. Unable to visualize cervix due to body habitus. No wounds/ulcers/lesions noted) (CUATE VILLASENOR MD) Progress/Results/Core Measures Suspected Sepsis SIRS Temperature: Pulse: 80 Respiratory Rate: 18 Blood Pressure 113 /75 Mean: 88 (MICHAEL BEEBE) Results/Orders Lab Results Laboratory Tests Test 01/01/23 00:00 01/01/23 01:35 Range/Units Urine Color YELLOW Urine Clarity CLEAR Urine pH 7.0 5-9 Urine Specific [place] 1.025 H 1.016-1.022 Urine Protein NEGATIVE NEGATIVE Urine Glucose (UA) NEGATIVE NEGATIVE Urine Ketones NEGATIVE NEGATIVE Urine Nitrite NEGATIVE NEGATIVE Urine Bilirubin NEGATIVE NEGATIVE Urine Urobilinogen 0.2 < = 1.0 MG/DL Urine Leukocyte Esterase TRACE H NEGATIVE Urine RBC (Auto) TRACE H NEGATIVE Urine RBC NONE /HPF Urine WBC 0-2 /HPF Urine Squamous Epithelial Cells 5-10 /HPF Urine Crystals NONE /LPF Urine Amorphous Sediment MOD ELINOR URATES H /LPF Urine Bacteria MODERATE H /HPF Urine Casts NONE /LPF Urine Mucus NEGATIVE /LPF Urine Culture Indicated YES (CUATE VILLASENOR MD) Micro Results Microbiology 01/01/23 Wet Prep - Final, Complete 01/01/23 Genital Culture & GC Screen - Preliminary, Resulted (CUATE VILLASENOR MD) My Orders Orders - CUATE VILLASENOR MD Ua Culture If Indicated (01/01/23 00:38) Urine Bedside (01/01/23 00:38) Culture For Gc Only (01/01/23 00:38) Chlamydia Trachomatis Swab (01/01/23 00:38) Wet Prep (01/01/23 00:38) Acetaminophen Tablet (Acetaminophen Ta (01/01/23 01:15) Urine Culture (01/01/23 00:00) Ceftriaxone Iv/Im (Ceftriaxone Iv/Im) (01/01/23 01:45) Lidocaine 1% Inj 20 Ml (Xylocaine 1% Inj (01/01/23 01:45) Azithromycin Tablet (Azithromycin Tabl (01/01/23 01:31) Lidocaine 1% Inj 10 Ml (Xylocaine 1% Inj (01/01/23 01:39) (CUATE VILLASENOR MD) Medications Given in ED (CUATE VILLASENOR MD) Vital Signs/I&O (CUATE VILLASENOR MD) Vital Signs/I&O Capillary Refill : Less Than 3 Seconds (MICHAEL BEEBE) Blood Pressure Mean: 88 Progress Note : Time: 01:53 Progress Note Patient seen and examined by me. I have reviewed the medical students documentation and agree - my edits are documented in the body of the report and as documented here. My eval includes physical exam, UA, urine test, wet prep, swabs for GC and chlamydia. Pertinent physical exam findings - obese female in NAD. Pelvic exam revealed normal female genitalia with copious yellowish green vaginal discharge. Body habitus made visualization of the cervix difficult. Swabs obtained. Patient did have CMT. no masses palpated. She had mild tenderness to palpation in the suproapubic region. Rest of her exam unremarkable. ddx includes UTI, PID/cervicitis, TOA Patient exam consistent with PID. She was treated for GC and chlamydia with Rocephin 250mg IM and 1gm Zithormax PO. She did have clue cells on her wet pre. A prescription for metronidazole was given. She was advised to take Ibuprofen and tylenol for pain. I advised her that her culture results would take 2-3 days to return and we would notify her of any positives. She was also instructed to return if her symptoms should worsen. I had low clinical suspicion of TOA as exam did not support this diagnosis. Consideration for pelvic ultrasound, maia bowman did not feel it was warranted at this time. Patient is comfortable with the plan of care. No concerning findings for UTI. All questions were sought and answered. (CUATE VILLASENOR MD) Departure Impression Primary Impression: Abdominal pain Qualified Codes: R10.32 - Left lower quadrant pain Additional Impressions: Cervicitis Bacterial vaginosis Disposition: HOME, SELF-CARE Condition: Stable Departure-Patient Inst. Decision time for Depature: :53 (CUATE VILLASENOR MD) Referrals: [facility] (PCP/Family) Primary Care Physician Patient Instructions: Bacterial Vaginosis (DC), Pelvic Inflammatory Disease ED Add. Discharge Instructions: Your culture results will be back in 3-4 days. If you have Gonorrhea or Chl amydia we will let you know, but you have been treated tonight. you will need to let your sexual partners know if your culture is positive. You have been given a prescription for Metronidazole as well for bacterial vaginosis - this is a bacterial infection that can cause discharge and sometimes vaginal discomfort. Please finish the entire course. Do not drink alcohol while taking this medication. Continue tylenol and/or ibuprofen as needed for pain. If you have worsening abdominal pain over the next 2 days, especially with fever, vomiting or any other concerning symptoms - please return to the Emergency Department for re-evaluation. You need to schedule a well woman exam at [facility] for a pap smear. Scripts Metronidazole (Metronidazole) 500 Mg Tablet 500 MG PO BID for 7 Days, #14 TAB Prov: CUATE VILLASENOR MD 01/01/23 Verification and Attestation of Medical Student E/M Service A medical student performed and documented this service in my presence. I review ed and verified all information documented by the medical student and made modifications to such information, when appropriate. I personally performed the physical exam and medical decision making. Cuate Villasenor, Jan 01, 2023,02:00 (CUATE VILLASENOR MD) Copy Copies To 1: JOSE MOISE TAYLOR Jan 01, 2023 00:44 CUATE VILLASENOR MD Jan 01, 2023 02:00
[2023-01-01 01:03] LABS: CLARITY,URINE CLEAR; COLOR,URINE YELLOW
[2023-01-01 01:04] LABS: BILIRUBIN,URINE NEGATIVE (NEGATIVE); GLUCOSE, URINE (UA) NEGATIVE (NEGATIVE); KETONES,URINE NEGATIVE (NEGATIVE); NITRITE,URINE NEGATIVE (NEGATIVE); PROTEIN,URINE NEGATIVE (NEGATIVE)
[2023-01-01 01:05] LABS: LEUKOCYTE ESTERASE ,URINE TRACE (NEGATIVE)
[2023-01-01 01:06] LABS: BACTERIA,URINE MODERATE /HPF; WBC,URINE 0-2 /HPF
[2023-01-01 01:08] LABS: AMORPHOUS SEDIMENT,UR MOD AMOR URATES /LPF
[2023-01-01] MEDS ORDERED: ACETAMINOPHEN 500 MG TABLET PO ONE (01:15)
[2023-01-01] MEDS ORDERED: AZITHROMYCIN 250 MG TABLET PO STA (01:31)
[2023-01-01] MEDS ORDERED: LIDOCAINE 1% INJ 10 ML VIAL ONE (01:39)
[2023-01-01] MEDS ORDERED: cefTRIAXone 250 MG VIAL IV/IM IM ONE (01:45)
[2023-01-01] MEDS ORDERED: LIDOCAINE 1% INJ 20 ML VIAL INJ ONE (01:45)
[2023-01-01] MEDS ORDERED: METR-145 PO (01:56)
[2023-01-01 02:07] VITALS: BP 121/78
== END 2023-01-01 02:07 | disposition home or self-care (01) ==
LOC: EDUNIT# 23:46 → ER 23:49
DX: N76.0 Acute vaginitis (principal); B96.89 Other specified bacterial agents as the cause of diseases classified elsewhere; N72 Inflammatory disease of cervix uteri; E66.9 Obesity, unspecified; Z68.41 Body mass index [BMI] 40.0-44.9, adult
CPT/HCPCS: 36415; 81000; 84703; 87070; 87077; 87088; 87210; 87491; 99284